=== PATIENT | male | born 1990 | race Caucasian/White ===

== ENCOUNTER 2019-06-13 12:31 | Emergency (ER) | payer SELFPAY ==
[2019-06-13 12:33] VITALS: BP 139/91; PULSE 90; RESP 20; TEMP 36.8; O2SAT 98; BMI 44.9
--- NOTE | 2019-06-13 12:41 | RAD_ITS ---
STUDY: X-RAY - LUMBAR SPINE REASON FOR EXAM: Male, 28 years old. Low back pain. No known injury. TECHNIQUE: 3 view(s) of the lumbar spine were obtained. COMPARISON: None FINDINGS: There is straightening of the normal lumbar lordosis. There is a mild dextroscoliosis of the lumbar spine. There is a normal alignment of the vertebrae. Normal vertebral bodies and endplates. Normal disc space heights. The soft tissue structures are unremarkable. RAD/Lumbar Spine 2 or 3 Views IMPRESSION: Mild degree of dextroscoliosis. Electronically Signed: Samuel Lemos, at 13:47 EDT , Service support ,
--- NOTE | 2019-06-13 12:41 | ED.DCSUM_ITS ---
History of Present Illness Chief Complaint: Back Informant: Patient Onset: Today Context: Sudden Onset Injury: - - Patient denies any injury Timing: Continuous Quality: - - Pain Current Severity: Mild Maximum Severity: Severe Worsened by: improves with: Movement, Bending, Lifting Relieved by: Nothing Associated Symptoms: - - He denies bowel or bladder dysfunction. He denies saddle paresthesia or anesthesia. He denies radicular pain. He states he had similar pain 2015 after a muscle strain. He states he took a muscle relaxant without effect. Narrative: Patient is a 28-year-old morbidly obese male who presents with central low back pain without bowel bladder symptoms. Denies radicular pain. He reports pain with any type of movement. He denies dysuria, frequency, urgency hematuria. Denies history of renal ureterolithiasis. Prior similar symptoms: Yes, With Prior Back Pain Recent Illness/Hospitalization: No Past Medical History - Allergies and Home Meds Allergies/Adverse Reactions: Allergies Sulfa (Sulfonamide Antibiotics) Allergy (Verified 06/13/19 12:36) Rash Primary Care Physician: Stephenie Yi [Primary Care Provider] - Prior records reviewed: No Surgical History: no surgical history Lives: With Family Smoking Status: Never smoker Alcohol: None Drugs: None Review of Systems General: Denies: Chills, Fever, Sweats Eyes: Denies: Visual changes - bilaterally, Blurred Vision - bilaterally ENT: Denies: Rhinorrhea, Sore throat Cardiovascular: Denies: Chest pain, Palpitations Respiratory: Denies: Dyspnea, Cough, Dyspnea on exertion Gastrointestinal: Denies: Abdominal pain, Nausea, Vomiting, Diarrhea, Melena, Hematochezia Genitourinary: Denies: Dysuria, Hematuria, Frequency Musculoskeletal: Reports: Back pain. Denies: Myalgias, Arthralgias, Neck pain, Swelling, Extremity Pain, -, - Skin: Denies: Rash, Wounds Neurological: Denies: Weakness, Parasthesia, Numbness Hematologic: Denies: Easy bruising, Easy bleeding Physical Exam Vital Signs/Narrative: Vital Signs Temp Pulse Resp BP Pulse Ox 06/13/19 12:33 98.2 F 90 20 H 139/91 H 98 Inital Vital Signs reviewed: Yes General: Well nourished, Well developed Head: Normocephalic, Atraumatic Eyes: Perrl, EOMI ENT: Moist mucous membranes, No rhinorrhea Neck: Supple, Nontender Cardiovascular: Regular rate, Regular rhythm, No murmurs Respiratory: No distress, CTA bilaterally, Chest nontender Abdomen: Soft, Nontender, Nondistended, Normal bowel sounds Back: Normal Inspection, Spinal tenderness - Pain over L5 spinous process, Negative SLR - Right, Negative SLR - Left. Negative for: Surgical Scar, Well- Healed, CVA tenderness Extremeties: Nontender, No edema, Strong Pulses Skin: Normal color, No rash, No Trauma. Negative for: Cyanosis, Diaphoresis, Jaundice Neuro: Alert, Oriented, Normal Strength, Normal Sensation, Normal DTR, Normal Gait, Normal Reflexes, - - There is no clonus or Babinski sign noted. Straight leg test negative bilaterally. Normal sensation. Reflexes: - - Toe and ankle reflexes are plus minus and symmetric. Psychological: Normal affect Diagnostic/Tx/Re-eval X-Ray: LS SPine, Read by ED Physician, Normal, No Fracture, Normal Bony Alignment, - - Three-view x-ray of the lumbar sacral spine was obtained and is normal. 06/13/19 12:41 Lumbar Spine 2 or 3 Views [RAD] Stat - Medical Decision Making No history of trauma suspect this is degenerative disc disease. LS-spine was obtained to confirm. He was medicated with parenteral medication. Symptoms are not consistent with ureterolithiasis. He has no red flags to suggest epidural abscess or herniated disc. She was reassessed at 1340. Reports improvement in pain. He was informed that his x-ray was unremarkable. ED Disposition - Plan for ED Patient: Disposition: Home or Assisted Living Diagnosis: Acute low back pain Instructions: BACK AND NECK PAIN, General Prescriptions: Naproxen [Naprosyn] 500 mg PO BID #14 tab Prescription Printed Referrals: [facility],Stephenie Connors [Primary Care Provider] - 3-5 Days if not improving
[2019-06-13] MEDS: Morphine 4 MG/ML Syringe IV (12:50)
[2019-06-13] MEDS: Ketorolac 15 MG/ML Vial IV (12:51)
[2019-06-13 14:10] VITALS: BP 119/67; PULSE 93; RESP 18; O2SAT 94
[2019-06-13] MEDS: morphine 8 MG/ML Syringe IV (15:06)
== END 2019-06-13 16:01 | disposition home or self-care (01) ==
PROVIDERS: Emergency Provider Emergency Medicine
DX: M54.5 Low back pain (principal); E66.01 Morbid (severe) obesity due to excess calories
CPT/HCPCS: 72100; 96374; 96375; 99285; A4216

== ENCOUNTER 2021-08-14 20:15 | Emergency (ER) | payer MEDICAID, SELFPAY ==
[2021-08-14 20:15] VITALS: BP 192/105; PULSE 101; RESP 16; TEMP 36.4; O2SAT 98; BMI 43.7
[2021-08-14 20:17] VITALS: BP 192/105; PULSE 101; RESP 16; TEMP 36.4; O2SAT 98
--- NOTE | 2021-08-14 20:29 | CT_ITS ---
STUDY: CT ABDOMEN AND PELVIS WITH CONTRAST REASON FOR EXAM: Male, 30 years old. abdominal pain RADIATION DOSAGE (If Supplied By Facility): CTDIvol = ( 18.24 ) mGy, DLP = ( 2029.69 ) mGycm TECHNIQUE: Transaxial images were obtained from the dome of the diaphragm to the symphysis pubis without oral contrast. Isovue 370 100ml was administered. Sagittal and coronal images were reconstructed. Individualized dose optimization techniques were used for this CT. COMPARISON: None. FINDINGS: The visualized lung bases are unremarkable. The visualized portions of the heart are within normal limits. Normal liver. Normal gallbladder and extrahepatic biliary system. Normal spleen. Normal pancreas. Normal bilateral adrenal glands. Normal right kidney. Normal left kidney. There is a small hiatal hernia. Normal small intestine. Normal colon. The appendix is visualized and appears normal. Normal abdominal aorta. Normal inferior vena cava. Normal retroperitoneum. Normal urinary bladder. There is absence of the uterus consistent with a prior hysterectomy. Normal abdominal wall. Normal osseous structures. CT/Abdomen/Pelvis W IV Cont ONLY IMPRESSION: No acute inflammatory process or bowel obstruction. Electronically Signed: Joe Mishra MD ([place]) at 21:20 EST , Service support ,
--- NOTE | 2021-08-14 20:29 | EX.ED.DYSGE1 ---
HPI History of Present Illness Chief Complaint: Abd Pain Informant: patient Narrative Narrative: 30-year-old male presents the emergency room with vomiting of diarrhea 3-day duration. States that he woke up this morning and had some swelling and discomfort in the left side of his abdomen started moved towards the right side also. His mom became concerned for gallbladder disease because it runs in the family. He denies any fevers. He notes that this morning while he was really nauseous he had a bit of a cough but otherwise no coughing sore throat or runny nose. No bad food exposure he is a diabetic. States he typically goes to [place] for most of his care but was staying here in town so came here today. Patient states that has been able to keep water or Gatorade down today but he kept a couple grilled cheese sandwiches and chicken noodle soup down. [facility] Medical History (Updated 08/14/21 @ 21:[address] Sonu Gunderson DO) Diabetes Hypertension Home Medications insulin glargine [Lantus Solostar U-100 Insulin] 70 unit SUBCUT QHS 08/14/21 [History Last Taken Unknown] insulin lispro 14 unit SUBCUT TIDCM 08/14/21 [History Last Taken Unknown] lisinopril 2.5 mg PO DAILY 08/14/21 [History Last Taken Unknown] ondansetron 4 mg PO Q6H PRN PRN #10 tab 08/14/21 [Rx Last Taken Unknown] Allergy/AdvReac Type Severity Reaction Status Date / Time Sulfa (Sulfonamide Allergy Rash Verified 08/14/21 20:18 Antibiotics) Social History (Updated 08/14/21 @ 20:[address] Sonu Gunderson DO) current gender identity: male Smoking Status: Never smoker ROS ROS ED Constitutional Constitutional ED: Denies chills or weight loss Eyes Eyes: Denies change in vision or diplopia ENT ENT ED: Denies ear pain, rhinorrhea or sore throat Cardiovascular Cardiovascular: Denies chest pain, orthopnea, palpitations or racing heartbeat Respiratory/Chest Respiratory/Chest: Denies cough, dyspnea or orthopnea Gastrointestinal Gastrointestinal: Reports abdominal pain, diarrhea, nausea and vomiting Genitourinary Genitourinary ED: Denies dysuria, hematuria or urinary frequency Musculoskeletal Musculoskeletal: Denies arthralgias or myalgias Integumentary Denies abscess or rash Neurologic Neurologic: Denies headache(s) or weakness Psychiatric Psychiatric: Denies anxiety, depression, suicidal ideation or suicidal thoughts Endocrine Endocrinology: Denies polydipsia, polyphagia or polyuria Allergic/Immunologic Allergic/Immunologic ED: Denies mouth swelling, tongue swelling or urticaria EXAM Physical Exam Const Vital Signs: 08/14/21 20:15 08/14/21 20:17 Temperature 97.6 F L 97.6 F L Temperature Source Temporal Temporal Pulse Rate 101 H 101 H Respiratory Rate 16 16 Blood Pressure 192/105 H 192/105 H Blood Pressure Mean 134 134 Pulse Ox 98 98 Oxygen Delivery Method Room Air Room Air Positive well nourished, well developed and obese General Appearance ED: well developed Nutritional Appearance: obese HEENT Reports normocephalic, head/scalp atraumatic, TM's clear and moist mucous membranes Negative for trauma Tympanic Membrane ED: Yes TM's clear Eyes PERRL and EOMs intact bilaterally Neck no lymphadenopathy, supple and no JVD Resp normal respiratory effort and clear to auscultation bilaterally Cardio regular rate, regular rhythm and no murmurs GI normal to inspection, nondistended, normoactive bowel sounds and non-tender Palpation: soft Back/Spine no CVA tenderness and normal ROM Extremity normal to inspection General Extremety ED: Negative for edema General Extremity: Negative for edema Neuro oriented x3 and CN's II-XII intact bilaterally Sensorium / Orientation: alert Motor Exam: strength 5/5 throughout Psych mental status grossly normal Mood & Affect: Negative for depressed or tearful Skin no rashes or lesions noted and no wounds MDM MDM MDM Narrative Medical decision making narrative: Basic blood work was essentially negative with a white count of 9.9. Glucose 245. Lipase 247. CO2 24. CT the of the pelvis was obtained which does not demonstrate anything acute. Patient received Zofran and some fluids. Patient will be discharged home with a prescription for Zofran return if worsening or concerns instructions for Imodium as needed Lab Data Attestation: I reviewed the patient's lab results. Labs: Laboratory Results - last 24 hr 08/14/21 08/14/21 20:32 20:32 WBC 9.9 RBC 5.52 Hgb 14.3 Hct 43.5 MCV 78.8 L MCH 25.9 L MCHC 32.9 RDW Std Deviation 42.4 RDW Coeff of Dano 15.0 H Plt Count 279 MPV 10.4 Immature Gran % (Auto) 0.600 Neut % (Auto) 58.1 Lymph % (Auto) 30.4 Glascock % (Auto) 5.4 Eos % (Auto) 5.1 H Baso % (Auto) 0.4 Absolute Neuts (auto) 5.8 Absolute Lymphs (auto) 3.01 Nucleated RBC % 0 Sodium 137 Potassium 3.9 Chloride 108 H Carbon Dioxide 24.0 Anion Gap 5 BUN 16 Creatinine 0.84 Estim Creat Clear Calc 150.86 Est GFR (MDRD) Af Amer 137 Est GFR (MDRD) Non-Af 114 BUN/Creatinine Ratio 19.0 Glucose 245 H Calcium 9.1 Total Bilirubin 0.60 AST 16 ALT 22 Alkaline Phosphatase 125 H Total Protein 7.2 Albumin 2.8 L Globulin 4.4 H Albumin/Globulin Ratio 0.6 L Lipase 247 Radiography Diagnostic Testing: Clinical Impression(s) from Imaging Studies Abdomen/Pelvis CT 08/14/21 20:29 IMPRESSION: No acute inflammatory process or bowel obstruction. Electronically Signed: Joe Mishra MD ([place]) at 21:20 EST , Service support , Discharge Plan Triage Chief Complaint: Abd Pain ED Provider: Sonu Gunderson Dx/Rx/DC Orders Clinical Impression: Gastroenteritis Instructions: ED Gastroenteritis, Viral (Adult) Prescriptions: New ondansetron [ondansetron] 4 MG tablet 4 mg PO Q6H PRN PRN (Reason: Nausea) Qty: 10 RF: 0 No Action lisinopril 2.5 mg tablet 2.5 mg PO DAILY RF: 0 insulin lispro 100 unit/mL insulin pen 14 unit SUBCUT TIDCM RF: 0 Lantus Solostar U-100 Insulin 100 unit/mL (3 mL) insulin pen 70 unit SUBCUT QHS RF: 0 Primary Care Provider: Care Physician,No Primary Referrals: Care Physician,No Primary [Primary Care Provider] - Activity Restrictions/Additional Instructions: Follow-up with your primary care doctor if not improving return if worsening or concerns Disposition Disposition: Home, Self Care
[2021-08-14] MEDS: Ondansetron 4 MG/2 ML Vial IV (20:38)
[2021-08-14] MEDS: 0.9% Normal Saline 1,000 ML 1000 ML IV (20:38)
[2021-08-14 20:40] LABS: Absolute Lymphocyte Count 3.01 X10^3/uL (0.83-4.51); Absolute Neutrophil Count 5.8 X10^3/uL (2.0-7.7); Basophil# 0.04 X10^3/uL; Basophil% 0.4 % (0-1); Eosinophils% 5.1 % (0-5); Hematocrit 43.5 % (40-54); Hemoglobin 14.3 g/dL (13.0-16.5); Lymphocyte # 3.01 X10^3/ul (0.83-4.51); Lymphocyte % 30.4 % (19-41); Mean Corp Hgb Conc 32.9 g/dL (32-36); Mean Corpuscular Hgb 25.9 pg (27.0-32.0); Mean Corpuscular Volume 78.8 fL (80-94); Mean Platelet Vol. 10.4 fl (6.2-12.0); Monocyte# 0.53 X10^3/uL; Monocyte% 5.4 % (0-10); NRBC Flagged by Analyzer 0 % (0-5); Neutrophil # 5.75 X10^3/uL (2.7-7.7); Neutrophil % 58.1 % (47-70); Platelet Count 279 K/mm3 (150-450); RBC Distribution Width SD 42.4 fl (35.1-43.9); Red Blood Count 5.52 M/mm3 (4.6-6.2); White Blood Count 9.9 K/mm3 (4.4-11.0)
[2021-08-14 20:56] LABS: ALB/GLOB Ratio 0.6 RATIO (0.9-2.4); AST(SGOT) 16 U/L (15-37); Alanine Aminotransfer ALT/SGPT 22 U/L (16-61); Albumin, Serum 2.8 g/dL (3.2-5.0); Alkaline Phosphatase 125 U/L (45-117); Anion Gap 5 (5-15); BUN 16 mg/dL (7-18); Calcium,Total 9.1 mg/dL (8.5-10.1); Chloride 108 mmol/L (98-107); Creatinine, Serum 0.84 mg/dL (0.70-1.30); EST Glomerular Filtration Rate 114 mL/min (>60); Est Glom Filt Rate - Afr Amer 137 mL/min (>60); Estimated Creatinine Clearance 150.86 ml/min; Globulin 4.4 g/dL (2.2-4.2); Glucose 245 mg/dL (74-106); Lipase 247 U/L (73-393); Potassium 3.9 mmol/L (3.5-5.1); Protein, Total 7.2 g/dL (6.4-8.2); Sodium Level 137 mmol/L (136-145)
[2021-08-14 21:44] VITALS: BP 107/71; PULSE 102; O2SAT 100
== END 2021-08-14 22:17 | disposition home or self-care (01) ==
PROVIDERS: Emergency Provider Emergency Medicine
DX: K52.9 Noninfective gastroenteritis and colitis, unspecified (principal); E66.9 Obesity, unspecified; E11.9 Type 2 diabetes mellitus without complications; I10 Essential (primary) hypertension; Z79.4 Long term (current) use of insulin
CPT/HCPCS: 74177; 80053; 83690; 85025; 96361; 96374; 99283; J7030; Q9967; A4216; J2405

== ENCOUNTER 2021-09-02 23:19 | Emergency (ER) | payer MEDICAID, SELFPAY ==
[2021-09-02 23:21] VITALS: BP 156/90; PULSE 100; RESP 18; TEMP 36.7; O2SAT 96; BMI 43.9
--- NOTE | 2021-09-02 23:50 | EDS_ITS ---
HPI History of Present Illness Chief Complaint: Abscess Informant: patient Onset/Context/Timing Onset: Days (2) Context: Gradual Onset Timing: Continuous Quality: sore Location: left jaw/face Current Severity: Moderate Maximum Severity: Severe Worsened by: palpation Relieved by: leaving alone Associated Symptoms Associated Symptoms: no systemic sx Narrative Narrative: Patient presenting for tender swollen area on his left lower face that he suspects is infected. He states he thinks it started as an ingrown hair, he pulled the hair out and there was something white on the end of it, it then started getting more swollen, red, painful. Today he states that he stabbed it with a needle and had a small amount of pus come out, and presents out of fear that it may need more of a drainage. [facility] Medical History Diabetes Hypertension Home Medications insulin glargine [Lantus Solostar U-100 Insulin] 70 unit SUBCUT QHS 08/14/21 [History Last Taken Unknown] insulin lispro 14 unit SUBCUT TIDCM 08/14/21 [History Last Taken Unknown] lisinopril 2.5 mg PO DAILY 08/14/21 [History Last Taken Unknown] ondansetron 4 mg PO Q6H PRN PRN #10 tab 08/14/21 [Rx Last Taken Unknown] clindamycin HCl 300 mg PO 4X/DAY #80 capsule 09/02/21 [Rx Last Taken Unknown] Allergy/AdvReac Type Severity Reaction Status Date / Time Sulfa (Sulfonamide Allergy Rash Verified 09/02/21 23:23 Antibiotics) Social History Smoking Status: Never smoker ROS ROS ED Constitutional Constitutional ED: Denies chills or fever(s) ENT ENT ED: Reports as per HPI and facial pain; Denies dental pain Musculoskeletal Musculoskeletal: Denies extremity pain or neck pain Integumentary Reports as per HPI and abscess; Denies Abrasions or rash Neurologic Neurologic: Denies paresthesias or weakness EXAM Physical Exam Const Vital Signs: 09/02/21 23:21 Temperature 98.1 F Temperature Source Temporal Pulse Rate 100 Respiratory Rate 18 Blood Pressure 156/90 H Blood Pressure Mean 112 Pulse Ox 96 Oxygen Delivery Method Room Air Positive well nourished and well developed General Appearance ED: well developed and NAD HEENT HEENT Narrative: Left lower jawline 3 cm facial abscess without spontaneous drainage. Tender. No intraoral involvement. Neck full ROM and supple Back/Spine normal ROM and normal to inspection Neuro oriented x3, no focal motor deficits and no sensory deficits noted Sensorium / Orientation: alert Psych mental status grossly normal and thought process normal Skin Skin Narrative: 3 cm indurated erythematous tender abscess left lower face/jaw. Large scab in the center of it. There is no expressible discharge spontaneously. Rashes: no rashes MDM MDM MDM Narrative Medical decision making narrative: Patient amenable to local anesthesia and I&D, drainage, antibiotics. He is allergic to sulfa, so we will start him on clindamycin. He states his blood sugars have been in the 200s, we discussed trying to keep his blood sugars under the best control possible to minimize infections like this, and we also discussed taking a probiotic or eating yogurt while on the clindamycin in order to minimize the risk of antibiotic associated diarrhea and C. difficile colitis. Procedures Other Procedures Procedure(s): Complex incision and drainage left facial abscess: Prepped with chlorhexidine. Locally anesthetized with 2 cc of a 50:50 mix of 2% lidocaine with epinephrine and 0.5% bupivacaine. Excellent anesthesia obtained. Incised centrally over the scab only with a #11 blade into cavity, small amount of purulent material expressed, deloculated with hemostats, painlessly. Small amount more purulent material expressed. Irrigated cavity with sterile saline 10 cc, packed with small amount of sterile gauze, dressed with bacitracin no complications tolerated well. Discharge Plan Triage Chief Complaint: Abscess ED Provider: Juan Angulo Dx/Rx/DC Orders Clinical Impression: Cutaneous abscess of face Instructions: ED Abscess Incision And Drainage Prescriptions: New clindamycin HCl 150 MG capsule 300 mg PO 4X/DAY Qty: 80 RF: 0 No Action lisinopril 2.5 mg tablet 2.5 mg PO DAILY RF: 0 insulin lispro 100 unit/mL insulin pen 14 unit SUBCUT TIDCM RF: 0 Lantus Solostar U-100 Insulin 100 unit/mL (3 mL) insulin pen 70 unit SUBCUT QHS RF: 0 ondansetron [ondansetron] 4 MG tablet 4 mg PO Q6H PRN PRN (Reason: Nausea) Qty: 10 RF: 0 Primary Care Provider: Care Physician,No Primary Referrals: Care Physician,No Primary [Primary Care Provider] - Doctor,Your [STAFF PHYSICIAN] - 3-5 Days if not improving Disposition Disposition: Home, Self Care
[2021-09-02] MEDS: Clindamycin HCl 150 MG Capsule 300 MG PO (23:58)
[2021-09-03 00:20] VITALS: RESP 18
== END 2021-09-03 00:21 | disposition home or self-care (01) ==
PROVIDERS: Emergency Provider Emergency Medicine; Visit Provider Emergency Medicine
DX: L02.811 Cutaneous abscess of head [any part, except face] (principal)
CPT/HCPCS: 10061; 99283

== ENCOUNTER → 2021-10-13 13:28 | Outpatient (CLI) | payer MEDICAID, SELFPAY ==
[2021-10-13 14:26] LABS: Absolute Lymphocyte Count 2.29 X10^3/uL (0.83-4.51); Absolute Neutrophil Count 5.7 X10^3/uL (2.0-7.7); Basophil# 0.03 X10^3/uL; Basophil% 0.3 % (0-1); Eosinophils% 4.5 % (0-5); Hematocrit 37.3 % (40-54); Lymphocyte # 2.29 X10^3/ul (0.83-4.51); Lymphocyte % 25.6 % (19-41); Mean Corp Hgb Conc 32.2 g/dL (32-36); Mean Corpuscular Hgb 25.6 pg (27.0-32.0); Mean Corpuscular Volume 79.5 fL (80-94); Mean Platelet Vol. 10.7 fl (6.2-12.0); Monocyte# 0.45 X10^3/uL; NRBC Flagged by Analyzer 0 % (0-5); Neutrophil # 5.72 X10^3/uL (2.7-7.7); Neutrophil % 63.9 % (47-70); Platelet Count 232 K/mm3 (150-450); RBC Distribution Width CV 14.8 % (11.6-14.6); RBC Distribution Width SD 41.9 fl (35.1-43.9); Red Blood Count 4.69 M/mm3 (4.6-6.2)
[2021-10-13 14:36] LABS: Erythrocyte Sedimentation Rate 35 mm/hr (0-20)
[2021-10-13 14:38] LABS: ALB/GLOB Ratio 0.9 RATIO (0.9-2.4); AST(SGOT) 8 U/L (15-37); Alanine Aminotransfer ALT/SGPT 17 U/L (16-61); Albumin, Serum 2.9 g/dL (3.2-5.0); Alkaline Phosphatase 113 U/L (45-117); Anion Gap 5 (5-15); BUN 12 mg/dL (7-18); BUN/Creat Ratio 15.8 RATIO (10-20); Calcium,Total 8.7 mg/dL (8.5-10.1); Chloride 104 mmol/L (98-107); Creatinine, Serum 0.76 mg/dL (0.70-1.30); EST Glomerular Filtration Rate 128 mL/min (>60); Est Glom Filt Rate - Afr Amer 155 mL/min (>60); Globulin 3.4 g/dL (2.2-4.2); Glucose 296 mg/dL (74-106); Potassium 4.1 mmol/L (3.5-5.1); Protein, Total 6.3 g/dL (6.4-8.2); Sodium Level 138 mmol/L (136-145)
== END ==
DX: M86.9 Osteomyelitis, unspecified (principal); E11.69 Type 2 diabetes mellitus with other specified complication
CPT/HCPCS: 80053; 85025; 85652; 86140

== ENCOUNTER 2021-10-15 23:27 | Emergency (ER) | payer MEDICAID, SELFPAY ==
[2021-10-15 23:28] VITALS: BP 151/97; PULSE 101; RESP 16; TEMP 35.7; O2SAT 97; BMI 45.2
--- NOTE | 2021-10-15 23:49 | EX.ED.UPPERE ---
HPI History of Present Illness Chief Complaint: Upper Extremity Injury Narrative Narrative: Patient has past medical history of foot infections. He is currently undergoing infusions of antibiotics. This is the third PICC line that he has had in the last few years. He states this PICC line was placed a week ago Monday. Tonight, after his infusion, he said his back between his legs, and then noticed when he pulled down his arm band that cover the ports, that the bandage had been puffed up and there was a large amount of blood that trickled out. He had felt some burning in his arm. He denies any fevers or chills. No other symptoms. [facility] Medical History Diabetes Hypertension Home Medications insulin glargine [Lantus Solostar U-100 Insulin] 70 unit SUBCUT QHS 08/14/21 [History Last Taken Unknown] insulin lispro 14 unit SUBCUT TIDCM 08/14/21 [History Last Taken Unknown] lisinopril 2.5 mg PO DAILY 08/14/21 [History Last Taken Unknown] ondansetron 4 mg PO Q6H PRN PRN #10 tab 08/14/21 [Rx Last Taken Unknown] clindamycin HCl 300 mg PO 4X/DAY #80 capsule 09/02/21 [Rx Last Taken Unknown] Allergy/AdvReac Type Severity Reaction Status Date / Time Sulfa (Sulfonamide Allergy Rash Verified 10/15/21 23:28 Antibiotics) Social History Smoking Status: Never smoker ROS ROS ED ROS Narrative Constitutional: No fever, no chills. HEENT: No sore throat. No neck pain. No loss of vision. No rhinorrhea. Cardiovascular: No chest pain. No palpitations. No pedal edema. Respiratory: No cough, no shortness of breath. Abdominal: No abdominal pain. No nausea. No vomiting. Genitourinary: No dysuria. No hematuria. Musculoskeletal: No myalgias. No arthralgias. Right upper arm burning where PICC line is-resolved. Noticed blood under bandage. Neurologic: No headaches. No dizziness. No lightheadedness. Skin: No rash. No change in color. Psychiatric: No depression. No anxiety. EXAM Physical Exam Narrative Exam Narrative: Afebrile. Vital signs noted. HEENT: Normocephalic. Atraumatic. PERRL, EOMI. Neck soft and supple. No point tenderness or step off. Cardiovascular: Regular rate and rhythm. No murmurs, rubs, or gallops appreciated. Respiratory: No tachypnea. Lungs clear to auscultation bilaterally. Gastrointestinal: Abdomen soft, nontender, with normoactive bowel sounds. No rebound or guarding. Neurological: Awake. Alert. Nonfocal, nonlateralizing. Skin: No rash. Normal color. No pallor. Musculoskeletal: No pedal edema. Full range of motion extremities right lower extremity and Velcro boot. Noted PICC line with small amount of blood under dressing right upper extremity, medial aspect. No active bleeding noted. Const Vital Signs: 10/15/21 23:28 Temperature 96.2 F L Temperature Source Temporal Pulse Rate 101 H Respiratory Rate 16 Blood Pressure 151/97 H Blood Pressure Mean 115 Pulse Ox 97 Oxygen Delivery Method Room Air MDM MDM MDM Narrative Medical decision making narrative: His dressing will be changed. There is no active bleeding. At this point in time, I feel he can be discharged safely home with follow-up. Return instructions to the emergency department were reviewed. Patient and his mother are comfortable with the plan. Disposition is discharged home in improved and stable condition. Discharge Plan Triage Chief Complaint: Upper Extremity Injury ED Provider: Hugo Garcia Dx/Rx/DC Orders Clinical Impression: Bleeding from PICC line, Dressing change Instructions: ED PICC Line Care Prescriptions: No Action lisinopril 2.5 mg tablet 2.5 mg PO DAILY RF: 0 insulin lispro 100 unit/mL insulin pen 14 unit SUBCUT TIDCM RF: 0 Lantus Solostar U-100 Insulin 100 unit/mL (3 mL) insulin pen 70 unit SUBCUT QHS RF: 0 ondansetron [ondansetron] 4 MG tablet 4 mg PO Q6H PRN PRN (Reason: Nausea) Qty: 10 RF: 0 clindamycin HCl 150 MG capsule 300 mg PO 4X/DAY Qty: 80 RF: 0 Primary Care Provider: Care Physician,No Primary Referrals: Care Physician,No Primary [Primary Care Provider] - Disposition Disposition: Home, Self Care
--- NOTE | 2021-10-16 00:18 | EX.ED.UPPERE ---
HPI History of Present Illness Chief Complaint: Upper Extremity Injury [facility] Medical History Diabetes Hypertension Home Medications insulin glargine [Lantus Solostar U-100 Insulin] 70 unit SUBCUT QHS 08/14/21 [History Last Taken Unknown] insulin lispro 14 unit SUBCUT TIDCM 08/14/21 [History Last Taken Unknown] lisinopril 2.5 mg PO DAILY 08/14/21 [History Last Taken Unknown] ondansetron 4 mg PO Q6H PRN PRN #10 tab 08/14/21 [Rx Last Taken Unknown] clindamycin HCl 300 mg PO 4X/DAY #80 capsule 09/02/21 [Rx Last Taken Unknown] Allergy/AdvReac Type Severity Reaction Status Date / Time Sulfa (Sulfonamide Allergy Rash Verified 10/15/21 23:28 Antibiotics) Social History Smoking Status: Never smoker EXAM Physical Exam Const Vital Signs: 10/15/21 23:28 Temperature 96.2 F L Temperature Source Temporal Pulse Rate 101 H Respiratory Rate 16 Blood Pressure 151/97 H Blood Pressure Mean 115 Pulse Ox 97 Oxygen Delivery Method Room Air Discharge Plan Triage Chief Complaint: Upper Extremity Injury ED Provider: Hugo Garcia Dx/Rx/DC Orders Clinical Impression: Bleeding from PICC line, Dressing change Instructions: ED PICC Line Care Prescriptions: No Action lisinopril 2.5 mg tablet 2.5 mg PO DAILY RF: 0 insulin lispro 100 unit/mL insulin pen 14 unit SUBCUT TIDCM RF: 0 Lantus Solostar U-100 Insulin 100 unit/mL (3 mL) insulin pen 70 unit SUBCUT QHS RF: 0 ondansetron [ondansetron] 4 MG tablet 4 mg PO Q6H PRN PRN (Reason: Nausea) Qty: 10 RF: 0 clindamycin HCl 150 MG capsule 300 mg PO 4X/DAY Qty: 80 RF: 0 Primary Care Provider: Care Physician,No Primary Referrals: Care Physician,No Primary [Primary Care Provider] - Disposition Disposition: Home, Self Care
== END 2021-10-16 00:32 | disposition home or self-care (01) ==
PROVIDERS: Emergency Provider Emergency Medicine; Visit Provider Emergency Medicine
DX: Z48.01 Encounter for change or removal of surgical wound dressing (principal); E11.9 Type 2 diabetes mellitus without complications; I10 Essential (primary) hypertension
CPT/HCPCS: 99282

== ENCOUNTER → 2021-10-19 16:39 | Outpatient (CLI) | payer MEDICAID, SELFPAY ==
[2021-10-19 16:50] LABS: Absolute Lymphocyte Count 1.58 X10^3/uL (0.83-4.51); Absolute Neutrophil Count 5.9 X10^3/uL (2.0-7.7); Basophil# 0.06 X10^3/uL; Basophil% 0.7 % (0-1); Eosinophils% 6.8 % (0-5); Hematocrit 35.5 % (40-54); Lymphocyte # 1.58 X10^3/ul (0.83-4.51); Mean Corp Hgb Conc 33.8 g/dL (32-36); Mean Corpuscular Hgb 26.3 pg (27.0-32.0); Mean Corpuscular Volume 77.7 fL (80-94); Mean Platelet Vol. 10.6 fl (6.2-12.0); Monocyte# 0.53 X10^3/uL; NRBC Flagged by Analyzer 0 % (0-5); Neutrophil # 5.94 X10^3/uL (2.7-7.7); Neutrophil % 67.7 % (47-70); Platelet Count 256 K/mm3 (150-450); RBC Distribution Width CV 15.3 % (11.6-14.6); RBC Distribution Width SD 42.2 fl (35.1-43.9); Red Blood Count 4.57 M/mm3 (4.6-6.2); White Blood Count 8.8 K/mm3 (4.4-11.0)
[2021-10-19 16:58] LABS: Erythrocyte Sedimentation Rate 41 mm/hr (0-20)
[2021-10-19 16:59] LABS: ALB/GLOB Ratio 0.8 RATIO (0.9-2.4); AST(SGOT) 8 U/L (15-37); Alanine Aminotransfer ALT/SGPT 16 U/L (16-61); Albumin, Serum 2.8 g/dL (3.2-5.0); Alkaline Phosphatase 115 U/L (45-117); Anion Gap 6 (5-15); BUN 9 mg/dL (7-18); BUN/Creat Ratio 11.5 RATIO (10-20); Calcium,Total 8.4 mg/dL (8.5-10.1); Chloride 104 mmol/L (98-107); Creatinine, Serum 0.78 mg/dL (0.70-1.30); EST Glomerular Filtration Rate 124 mL/min (>60); Est Glom Filt Rate - Afr Amer 150 mL/min (>60); Globulin 3.3 g/dL (2.2-4.2); Glucose 308 mg/dL (74-106); Potassium 3.8 mmol/L (3.5-5.1); Protein, Total 6.1 g/dL (6.4-8.2); Sodium Level 137 mmol/L (136-145)
== END ==
DX: M86.9 Osteomyelitis, unspecified (principal); Z47.81 Encounter for orthopedic aftercare following surgical amputation
CPT/HCPCS: 80053; 85025; 85652; 86140

== ENCOUNTER → 2021-11-22 14:26 | Outpatient (CLI) | payer MEDICAID, SELFPAY ==
[2021-11-22 14:49] LABS: Absolute Lymphocyte Count 2.67 X10^3/uL (0.83-4.51); Absolute Neutrophil Count 3.8 X10^3/uL (2.0-7.7); Basophil# 0.06 X10^3/uL; Basophil% 0.8 % (0-1); Eosinophil# 0.87 X10^3/uL; Hematocrit 37.4 % (40-54); Hemoglobin 12.1 g/dL (13.0-16.5); Lymphocyte # 2.67 X10^3/ul (0.83-4.51); Lymphocyte % 33.7 % (19-41); Mean Corp Hgb Conc 32.4 g/dL (32-36); Mean Corpuscular Hgb 25.5 pg (27.0-32.0); Mean Corpuscular Volume 78.9 fL (80-94); Mean Platelet Vol. 10.6 fl (6.2-12.0); Monocyte# 0.43 X10^3/uL; Monocyte% 5.4 % (0-10); NRBC Flagged by Analyzer 0 % (0-5); Neutrophil # 3.83 X10^3/uL (2.7-7.7); Neutrophil % 48.2 % (47-70); Platelet Count 229 K/mm3 (150-450); RBC Distribution Width CV 14.9 % (11.6-14.6); RBC Distribution Width SD 42.7 fl (35.1-43.9); Red Blood Count 4.74 M/mm3 (4.6-6.2); White Blood Count 7.9 K/mm3 (4.4-11.0)
[2021-11-22 15:03] LABS: ALB/GLOB Ratio 0.9 RATIO (0.9-2.4); AST(SGOT) 9 U/L (15-37); Alanine Aminotransfer ALT/SGPT 22 U/L (16-61); Albumin, Serum 2.9 g/dL (3.2-5.0); Alkaline Phosphatase 143 U/L (45-117); Anion Gap 6 (5-15); BUN 14 mg/dL (7-18); BUN/Creat Ratio 20.3 RATIO (10-20); CPK Total, Creatine Kinase 19 U/L (39-308); Calcium,Total 8.8 mg/dL (8.5-10.1); Chloride 102 mmol/L (98-107); Creatinine, Serum 0.69 mg/dL (0.70-1.30); EST Glomerular Filtration Rate 143 mL/min (>60); Est Glom Filt Rate - Afr Amer 173 mL/min (>60); Globulin 3.4 g/dL (2.2-4.2); Glucose 211 mg/dL (74-106); Potassium 4.2 mmol/L (3.5-5.1); Protein, Total 6.3 g/dL (6.4-8.2); Sodium Level 138 mmol/L (136-145)
[2021-11-23 13:09] LABS: Erythrocyte Sedimentation Rate 27 mm/hr (0-20)
== END ==
DX: M86.9 Osteomyelitis, unspecified (principal); B95.62 Methicillin resistant Staphylococcus aureus infection as the cause of diseases classified elsewhere
CPT/HCPCS: 80053; 82550; 85025; 85652; 86140

== ENCOUNTER → 2021-12-06 15:19 | Outpatient (CLI) | payer MEDICAID, SELFPAY ==
[2021-12-06 15:41] LABS: Absolute Lymphocyte Count 2.02 X10^3/uL (0.83-4.51); Absolute Neutrophil Count 7.5 X10^3/uL (2.0-7.7); Basophil# 0.06 X10^3/uL; Basophil% 0.5 % (0-1); Eosinophil# 0.92 X10^3/uL; Eosinophils% 8.3 % (0-5); Hematocrit 38.7 % (40-54); Hemoglobin 12.6 g/dL (13.0-16.5); Lymphocyte # 2.02 X10^3/ul (0.83-4.51); Lymphocyte % 18.1 % (19-41); Mean Corp Hgb Conc 32.6 g/dL (32-36); Mean Corpuscular Hgb 25.2 pg (27.0-32.0); Mean Corpuscular Volume 77.4 fL (80-94); Mean Platelet Vol. 10.6 fl (6.2-12.0); Monocyte# 0.59 X10^3/uL; Monocyte% 5.3 % (0-10); NRBC Flagged by Analyzer 0 % (0-5); Neutrophil # 7.46 X10^3/uL (2.7-7.7); Neutrophil % 66.9 % (47-70); Platelet Count 303 K/mm3 (150-450); RBC Distribution Width CV 15.2 % (11.6-14.6); RBC Distribution Width SD 42.3 fl (35.1-43.9); White Blood Count 11.2 K/mm3 (4.4-11.0)
[2021-12-06 16:00] LABS: ALB/GLOB Ratio 0.9 RATIO (0.9-2.4); AST(SGOT) 11 U/L (15-37); Alanine Aminotransfer ALT/SGPT 29 U/L (16-61); Albumin, Serum 3.1 g/dL (3.2-5.0); Alkaline Phosphatase 156 U/L (45-117); Anion Gap 4 (5-15); BUN 16 mg/dL (7-18); BUN/Creat Ratio 21.1 RATIO (10-20); CPK Total, Creatine Kinase 38 U/L (39-308); Calcium,Total 9.2 mg/dL (8.5-10.1); Chloride 106 mmol/L (98-107); Creatinine, Serum 0.76 mg/dL (0.70-1.30); EST Glomerular Filtration Rate 128 mL/min (>60); Est Glom Filt Rate - Afr Amer 155 mL/min (>60); Globulin 3.4 g/dL (2.2-4.2); Glucose 162 mg/dL (74-106); Potassium 4.3 mmol/L (3.5-5.1); Protein, Total 6.5 g/dL (6.4-8.2); Sodium Level 138 mmol/L (136-145)
== END ==
DX: E11.69 Type 2 diabetes mellitus with other specified complication (principal); B95.2 Enterococcus as the cause of diseases classified elsewhere; B95.62 Methicillin resistant Staphylococcus aureus infection as the cause of diseases classified elsewhere
CPT/HCPCS: 80053; 82550; 85025; 86140

== ENCOUNTER → 2022-01-03 | Outpatient (CLI) | payer MEDICAID, SELFPAY ==
[2022-01-03 15:31] LABS: Absolute Lymphocyte Count 2.32 X10^3/uL (0.83-4.51); Absolute Neutrophil Count 5.3 X10^3/uL (2.0-7.7); Basophil# 0.04 X10^3/uL; Basophil% 0.5 % (0-1); Eosinophil# 0.58 X10^3/uL; Eosinophils% 6.6 % (0-5); Hematocrit 37.7 % (40-54); Hemoglobin 11.9 g/dL (13.0-16.5); Lymphocyte # 2.32 X10^3/ul (0.83-4.51); Lymphocyte % 26.3 % (19-41); Mean Corp Hgb Conc 31.6 g/dL (32-36); Mean Corpuscular Hgb 24.9 pg (27.0-32.0); Monocyte# 0.52 X10^3/uL; Monocyte% 5.9 % (0-10); NRBC Flagged by Analyzer 0 % (0-5); Neutrophil # 5.32 X10^3/uL (2.7-7.7); Neutrophil % 60.4 % (47-70); Platelet Count 264 K/mm3 (150-450); RBC Distribution Width CV 15.5 % (11.6-14.6); RBC Distribution Width SD 44.4 fl (35.1-43.9); Red Blood Count 4.77 M/mm3 (4.6-6.2); White Blood Count 8.8 K/mm3 (4.4-11.0)
[2022-01-03 16:20] LABS: ALB/GLOB Ratio 0.9 RATIO (0.9-2.4); AST(SGOT) 17 U/L (15-37); Alanine Aminotransfer ALT/SGPT 33 U/L (16-61); Albumin, Serum 3.1 g/dL (3.2-5.0); Alkaline Phosphatase 124 U/L (45-117); Anion Gap 6 (5-15); BUN 21 mg/dL (7-18); BUN/Creat Ratio 28.6 RATIO (10-20); CPK Total, Creatine Kinase 41 U/L (39-308); Calcium,Total 8.9 mg/dL (8.5-10.1); Chloride 105 mmol/L (98-107); Creatinine, Serum 0.74 mg/dL (0.70-1.30); EST Glomerular Filtration Rate 133 mL/min (>60); Est Glom Filt Rate - Afr Amer 161 mL/min (>60); Globulin 3.3 g/dL (2.2-4.2); Glucose 153 mg/dL (74-106); Potassium 4.3 mmol/L (3.5-5.1); Protein, Total 6.4 g/dL (6.4-8.2); Sodium Level 139 mmol/L (136-145)
== END | disposition home or self-care (01) ==
LOC: LABSPEC 15:08
DX: Z47.81 Encounter for orthopedic aftercare following surgical amputation (principal); M86.9 Osteomyelitis, unspecified
CPT/HCPCS: 80053; 82550; 85025; 86140

== ENCOUNTER → 2022-01-10 | Outpatient (CLI) | payer MEDICAID, SELFPAY ==
[2022-01-10 12:12] LABS: Absolute Lymphocyte Count 2.64 X10^3/uL (0.83-4.51); Absolute Neutrophil Count 4.8 X10^3/uL (2.0-7.7); Basophil# 0.03 X10^3/uL; Basophil% 0.3 % (0-1); Eosinophil# 0.81 X10^3/uL; Eosinophils% 9.1 % (0-5); Hematocrit 36.3 % (40-54); Hemoglobin 11.5 g/dL (13.0-16.5); Lymphocyte # 2.64 X10^3/ul (0.83-4.51); Lymphocyte % 29.7 % (19-41); Mean Corp Hgb Conc 31.7 g/dL (32-36); Mean Corpuscular Hgb 24.8 pg (27.0-32.0); Mean Corpuscular Volume 78.4 fL (80-94); Mean Platelet Vol. 10.5 fl (6.2-12.0); Monocyte# 0.57 X10^3/uL; Monocyte% 6.4 % (0-10); NRBC Flagged by Analyzer 0 % (0-5); Neutrophil # 4.78 X10^3/uL (2.7-7.7); Neutrophil % 53.9 % (47-70); Platelet Count 262 K/mm3 (150-450); RBC Distribution Width CV 15.5 % (11.6-14.6); Red Blood Count 4.63 M/mm3 (4.6-6.2); White Blood Count 8.9 K/mm3 (4.4-11.0)
[2022-01-10 12:31] LABS: ALB/GLOB Ratio 0.9 RATIO (0.9-2.4); AST(SGOT) 11 U/L (15-37); Alanine Aminotransfer ALT/SGPT 25 U/L (16-61); Albumin, Serum 2.9 g/dL (3.2-5.0); Alkaline Phosphatase 127 U/L (45-117); Anion Gap 7 (5-15); BUN 19 mg/dL (7-18); BUN/Creat Ratio 29.4 RATIO (10-20); CPK Total, Creatine Kinase 29 U/L (39-308); Calcium,Total 8.7 mg/dL (8.5-10.1); Chloride 104 mmol/L (98-107); Creatinine, Serum 0.65 mg/dL (0.70-1.30); EST Glomerular Filtration Rate 154 mL/min (>60); Est Glom Filt Rate - Afr Amer 186 mL/min (>60); Globulin 3.3 g/dL (2.2-4.2); Glucose 168 mg/dL (74-106); Protein, Total 6.2 g/dL (6.4-8.2); Sodium Level 138 mmol/L (136-145)
== END | disposition home or self-care (01) ==
LOC: LABSPEC 11:57
DX: Z47.81 Encounter for orthopedic aftercare following surgical amputation (principal)
CPT/HCPCS: 80053; 82550; 85025; 86140

== ENCOUNTER → 2022-01-17 | Outpatient (CLI) | payer MEDICAID, SELFPAY ==
[2022-01-17 14:52] LABS: Absolute Lymphocyte Count 2.72 X10^3/uL (0.83-4.51); Basophil# 0.05 X10^3/uL; Basophil% 0.4 % (0-1); Eosinophil# 0.75 X10^3/uL; Eosinophils% 6.6 % (0-5); Hematocrit 39.3 % (40-54); Hemoglobin 12.4 g/dL (13.0-16.5); Lymphocyte # 2.72 X10^3/ul (0.83-4.51); Lymphocyte % 24.1 % (19-41); Mean Corp Hgb Conc 31.6 g/dL (32-36); Mean Corpuscular Hgb 24.8 pg (27.0-32.0); Mean Corpuscular Volume 78.8 fL (80-94); Mean Platelet Vol. 10.8 fl (6.2-12.0); Monocyte# 0.69 X10^3/uL; Monocyte% 6.1 % (0-10); NRBC Flagged by Analyzer 0 % (0-5); Neutrophil # 6.99 X10^3/uL (2.7-7.7); Neutrophil % 62.1 % (47-70); Platelet Count 266 K/mm3 (150-450); RBC Distribution Width CV 15.5 % (11.6-14.6); RBC Distribution Width SD 43.9 fl (35.1-43.9); Red Blood Count 4.99 M/mm3 (4.6-6.2); White Blood Count 11.3 K/mm3 (4.4-11.0)
[2022-01-17 14:59] LABS: AST(SGOT) 9 U/L (15-37); Alanine Aminotransfer ALT/SGPT 19 U/L (16-61); Albumin, Serum 3.1 g/dL (3.2-5.0); Alkaline Phosphatase 120 U/L (45-117); Anion Gap 6 (5-15); BUN 18 mg/dL (7-18); BUN/Creat Ratio 23.6 RATIO (10-20); CPK Total, Creatine Kinase 31 U/L (39-308); Calcium,Total 8.5 mg/dL (8.5-10.1); Chloride 103 mmol/L (98-107); Creatinine, Serum 0.76 mg/dL (0.70-1.30); EST Glomerular Filtration Rate 127 mL/min (>60); Est Glom Filt Rate - Afr Amer 154 mL/min (>60); Globulin 3.2 g/dL (2.2-4.2); Glucose 219 mg/dL (74-106); Protein, Total 6.3 g/dL (6.4-8.2); Sodium Level 136 mmol/L (136-145)
== END | disposition home or self-care (01) ==
LOC: LABSPEC 14:28
DX: T87.43 Infection of amputation stump, right lower extremity (principal)
CPT/HCPCS: 80053; 82550; 85025; 86140

== ENCOUNTER → 2022-01-25 | Outpatient (CLI) | payer MEDICAID, SELFPAY ==
[2022-01-25 15:09] LABS: Absolute Lymphocyte Count 2.41 X10^3/uL (0.83-4.51); Absolute Neutrophil Count 4.8 X10^3/uL (2.0-7.7); Basophil# 0.05 X10^3/uL; Basophil% 0.6 % (0-1); Eosinophil# 0.74 X10^3/uL; Eosinophils% 8.6 % (0-5); Hematocrit 38.7 % (40-54); Hemoglobin 12.5 g/dL (13.0-16.5); Lymphocyte # 2.41 X10^3/ul (0.83-4.51); Lymphocyte % 28.1 % (19-41); Mean Corp Hgb Conc 32.3 g/dL (32-36); Mean Corpuscular Volume 77.2 fL (80-94); Mean Platelet Vol. 11.2 fl (6.2-12.0); Monocyte# 0.51 X10^3/uL; Monocyte% 5.9 % (0-10); NRBC Flagged by Analyzer 0 % (0-5); Neutrophil # 4.82 X10^3/uL (2.7-7.7); Neutrophil % 56.2 % (47-70); Platelet Count 229 K/mm3 (150-450); RBC Distribution Width CV 15.3 % (11.6-14.6); RBC Distribution Width SD 41.9 fl (35.1-43.9); Red Blood Count 5.01 M/mm3 (4.6-6.2); White Blood Count 8.6 K/mm3 (4.4-11.0)
[2022-01-25 23:09] LABS: ALB/GLOB Ratio 0.9 RATIO (0.9-2.4); AST(SGOT) 12 U/L (15-37); Alanine Aminotransfer ALT/SGPT 19 U/L (16-61); Albumin, Serum 3.1 g/dL (3.2-5.0); Alkaline Phosphatase 125 U/L (45-117); Anion Gap 8 (5-15); BUN 13 mg/dL (7-18); BUN/Creat Ratio 17.4 RATIO (10-20); CPK Total, Creatine Kinase 35 U/L (39-308); Calcium,Total 8.7 mg/dL (8.5-10.1); Chloride 103 mmol/L (98-107); Creatinine, Serum 0.75 mg/dL (0.70-1.30); EST Glomerular Filtration Rate 130 mL/min (>60); Est Glom Filt Rate - Afr Amer 157 mL/min (>60); Globulin 3.4 g/dL (2.2-4.2); Glucose 271 mg/dL (74-106); Potassium 3.9 mmol/L (3.5-5.1); Protein, Total 6.5 g/dL (6.4-8.2); Sodium Level 137 mmol/L (136-145)
== END | disposition home or self-care (01) ==
LOC: LABSPEC 14:36
DX: T87.43 Infection of amputation stump, right lower extremity (principal)
CPT/HCPCS: 80053; 82550; 85025; 86140

== ENCOUNTER → 2022-02-04 | Outpatient (CLI) | payer MEDICAID, SELFPAY ==
[2022-02-04 17:33] LABS: Hematocrit 38.2 % (40-54); Hemoglobin 12.2 g/dL (13.0-16.5); Mean Corp Hgb Conc 31.9 g/dL (32-36); Mean Corpuscular Volume 78.3 fL (80-94); Mean Platelet Vol. 10.4 fl (6.2-12.0); Platelet Count 251 K/mm3 (150-450); RBC Distribution Width CV 15.8 % (11.6-14.6); RBC Distribution Width SD 43.7 fl (35.1-43.9); Red Blood Count 4.88 M/mm3 (4.6-6.2); White Blood Count 9.3 K/mm3 (4.4-11.0)
[2022-02-04 18:18] LABS: Anion Gap 4 (5-15); BUN 11 mg/dL (7-18); BUN/Creat Ratio 12.2 RATIO (10-20); Calcium,Total 8.8 mg/dL (8.5-10.1); Chloride 108 mmol/L (98-107); EST Glomerular Filtration Rate 105 mL/min (>60); Est Glom Filt Rate - Afr Amer 127 mL/min (>60); Glucose 142 mg/dL (74-106); Potassium 3.6 mmol/L (3.5-5.1); Sodium Level 140 mmol/L (136-145)
== END | disposition home or self-care (01) ==
DX: E61.1 Iron deficiency (principal); D50.9 Iron deficiency anemia, unspecified
CPT/HCPCS: 80048; 85027

== ENCOUNTER 2022-09-15 09:04 | Emergency (ER) | payer MEDICAID, SELFPAY ==
[2022-09-15 09:05] VITALS: BP 167/115; PULSE 128; RESP 18; TEMP 36.6; O2SAT 97; BMI 47.5
--- NOTE | 2022-09-15 09:17 | EX.ED.DYSGE1 ---
HPI History of Present Illness Chief Complaint: Abscess Detail of Chief Complaint: Concern for abscess to scalp Informant: patient and parent Narrative Narrative: Patient presents the emergency department with concern of an abscess to his scalp. Patient states that he woke up Monday morning and had some bloody drainage on his hand and pillow. Patient has had these wounds to his scalp since 2019. Patient was seen at [facility] and was cultured and was told that he had a fungal infection for which she uses a shampoo. Patient denies fever or chills or sweats. Patient is a diabetic. No history of MRSA. Patient does have allergy to sulfa. Prior similar symptoms: Yes PFSH PFSH Medical History Diabetes Hypertension Home Medications insulin glargine 100 unit/mL (3 mL) subcutaneous pen (Lantus Solostar U-100 Insulin) 70 unit subcut QHS 08/14/21 [History Last Taken Unknown] insulin lispro 100 unit/mL subcutaneous pen 14 unit subcut TIDCM 08/14/21 [History Last Taken Unknown] lisinopril 2.5 mg tablet 2.5 mg PO DAILY 08/14/21 [History Last Taken Unknown] ondansetron 4 mg disintegrating tablet 4 mg PO Q6H PRN PRN Nausea #10 tabs 08/14/21 [Rx Last Taken Unknown] clindamycin HCl 150 mg capsule 300 mg PO 4X/DAY #80 CAPSULES 09/02/21 [Rx Last Taken Unknown] clindamycin HCl 300 mg capsule (Cleocin HCl) 300 mg PO Q6H #40 CAPSULES 09/15/22 [Rx Last Taken Unknown] Allergy/AdvReac Type Severity Reaction Status Date / Time Sulfa (Sulfonamide Allergy Rash Verified 09/15/22 09:08 Antibiotics) metformin AdvReac Vomiting Verified 09/15/22 09:08 Social History Smoking Status: Never smoker ROS ROS ED Review of Systems ROS Unobtainable: other Constitutional Constitutional ED: Reports lethargy; Denies chills, fever(s), sweats or weight loss Eyes Eyes: Denies blurry vision, change in vision or diplopia ENT ENT ED: Denies rhinorrhea or sore throat Cardiovascular Cardiovascular: Denies chest pain, orthopnea or racing heartbeat Respiratory/Chest Respiratory/Chest: Denies cough, dyspnea, dyspnea on exertion, orthopnea or sputum Gastrointestinal Gastrointestinal: Denies abdominal pain, diarrhea, nausea or vomiting Genitourinary Genitourinary ED: Denies dysuria, hematuria or urinary frequency Musculoskeletal Musculoskeletal: Denies arthralgias, back pain, myalgias or neck pain Integumentary Reports abscess; Denies Abrasions or rash Neurologic Neurologic: Denies headache(s) or weakness Psychiatric Psychiatric: Denies anxiety, depression or suicidal thoughts Endocrine Endocrinology: Denies polydipsia, polyphagia or polyuria Hematologic/Lymphatic Hematologic/Lymphatic: Denies easy bleeding, easy bruising or lymphadenopathy Allergic/Immunologic Allergic/Immunologic ED: Denies mouth swelling, tongue swelling or urticaria EXAM Physical Exam Const Vital Signs: 09/15/22 09:05 Temperature 97.9 F Temperature Source Temporal Pulse Rate 128 H Respiratory Rate 18 Blood Pressure 167/115 H Blood Pressure Mean 132 Pulse Ox 97 Oxygen Delivery Method Room Air Positive well nourished and well developed General Appearance ED: well developed and NAD HEENT Reports TM's clear and moist mucous membranes HEENT Narrative: Scalp-patient has multiple small excoriated lesions to the scalp in different stages of healing. To the posterior occiput there was a excoriated area that may have had an abscess there where it spontaneously drained but there is no evidence of abscess at this time or fluctuance or purulent drainage. Some of the lesions have some small amount of erythema surrounding them. There is scab formation around some of the lesions. normocephalic and atraumatic; Negative for trauma or tenderness Tympanic Membrane ED: Yes TM's clear Eyes PERRL and EOMs intact bilaterally General Eye ED: Negative for pale conjunctiva or scleral icterus Neck no lymphadenopathy, supple and no JVD General: Negative for tenderness Chest Wall inspection of chest normal and palpation of chest normal Chest: Negative for tenderness Resp normal respiratory effort and clear to auscultation bilaterally Effort and Inspection: Negative for respiratory distress or pain with movement Auscultation: Negative for rhonchi, wheezes or diminished lung sounds Cardio regular rate, regular rhythm, S1 normal heart sound, S2 normal heart sound and no murmurs Peripheral Pulses: pulses 2+ throughout GI normal to inspection, nondistended, normoactive bowel sounds, soft to palpation, non-tender, non-distended and no masses Back/Spine no CVA tenderness and no thoracic nor lumbar tenderness Extremity normal to inspection General Extremety ED: Negative for edema General Extremity: Negative for edema Neuro oriented x3, CN's II-XII intact bilaterally, no sensory deficits noted and gait normal Sensorium / Orientation: awake, alert, oriented to person, oriented to place and oriented to time Motor Exam: strength 5/5 throughout and strength abnormal Psych mental status grossly normal Skin no wounds Skin Narrative: Multiple excoriated lesions to scalp. No discrete abscess or purulent drainage noted. No cellulitic changes to the scalp. MDM MDM MDM Narrative Medical decision making narrative: Patient has multiple lesions to the scalp I suspect could be infectious. I will start him on clindamycin. Patient to continue with his antifungal shampoo. Patient will be referred to dermatology for follow-up. There is no evidence of discrete abscess at this time or requirement for incision and drainage. Patient comfortable with plan and will follow-up with dermatology. Discharge Plan Triage Chief Complaint: Abscess ED Provider: Frida Wilson Dx/Rx/DC Orders Clinical Impression: Cellulitis, Soft tissue abscess Instructions: Abscess Drainage, ED Cellulitis Prescriptions: New clindamycin HCl [Cleocin HCl] 300 mg capsule 300 mg PO Q6H Qty: 40 0RF No Action lisinopril 2.5 mg tablet 2.5 mg PO DAILY insulin lispro 100 unit/mL insulin pen 14 unit SUBCUT TIDCM Lantus Solostar U-100 Insulin 100 unit/mL (3 mL) insulin pen 70 unit SUBCUT QHS ondansetron [ondansetron] 4 MG tablet 4 mg PO Q6H PRN PRN (Reason: Nausea) Qty: 10 0RF clindamycin HCl 150 MG capsule 300 mg PO 4X/DAY Qty: 80 0RF Primary Care Provider: Care Physician,No Primary Referrals: Mario Miles MD [Med Staff - [employer]] - 5-7 Days Care Physician,No Primary [Primary Care Provider] - Disposition Disposition: Home, Self Care
[2022-09-15] MEDS: Clindamycin HCl 150 MG Capsule 300 MG PO (09:29)
[2022-09-15 09:31] VITALS: PULSE 96; RESP 18; O2SAT 95
== END 2022-09-15 09:48 | disposition home or self-care (01) ==
LOC: ED 09:28
PROVIDERS: Emergency Provider Emergency Medicine; Visit Provider Emergency Medicine
DX: L03.811 Cellulitis of head [any part, except face] (principal); E11.9 Type 2 diabetes mellitus without complications; I10 Essential (primary) hypertension
CPT/HCPCS: 99283

== ENCOUNTER 2022-12-13 09:27 | Emergency (ER) | payer MEDICAID, SELFPAY ==
[2022-12-13 09:28] VITALS: BP 168/88; PULSE 95; RESP 24; TEMP 36.7; O2SAT 98; BMI 50.8
--- NOTE | 2022-12-13 09:37 | NURSING ---
NO OLD EKGS
--- NOTE | 2022-12-13 09:42 | EKG12_ITS ---
Test Reason : CP Blood Pressure : / mmHG Vent. Rate : 096 BPM Atrial Rate : 096 BPM P-R Int : 152 ms QRS Dur : 088 ms QT Int : 370 ms P-R-T Axes : 064 035 -11 degrees QTc Int : 467 ms Normal sinus rhythm Cannot rule out Inferior infarct , age undetermined Abnormal ECG Confirmed by CHANDA WILSON, SENIA ([id number]), health editor МАРИНА TERRAZAS ([id number]) on 12/16/2022 2:25:32 PM Referred By: BRUCE Confirmed By:SENIA ARMAS MD
--- NOTE | 2022-12-13 09:42 | ED.VIS.CHEST ---
HPI History of Present Illness Chief Complaint: Chest Pain Narrative Narrative: 32-year-old male past medical history of asthma, diabetes, hypertension, family history of early coronary artery disease presents with left-sided chest pain that is worse with movement since 730 this morning. He states he awoke and was laying on his left side, and began having left-sided chest pain. He felt short of breath and sweaty but denies any fevers or chills. No cough. No nausea or vomiting. He presents with his mother because they are concerned because she had a heart attack and there is a strong family history of coronary artery disease. He states that the pain will last at least 15 minutes and then go away, but come right back. Pain is worse when he moves his arm or torso. PFSH [facility] Medical History Diabetes Hypertension Home Medications insulin glargine 100 unit/mL (3 mL) subcutaneous pen (Lantus Solostar U-100 Insulin) 70 unit subcut QHS 08/14/21 [History Last Taken Unknown] insulin lispro 100 unit/mL subcutaneous pen 14 unit subcut TIDCM 08/14/21 [History Last Taken Unknown] lisinopril 2.5 mg tablet 2.5 mg PO DAILY 08/14/21 [History Last Taken Unknown] ondansetron 4 mg disintegrating tablet 4 mg PO Q6H PRN PRN Nausea #10 tabs 08/14/21 [Rx Last Taken Unknown] clindamycin HCl 150 mg capsule 300 mg PO 4X/DAY #80 CAPSULES 09/02/21 [Rx Last Taken Unknown] clindamycin HCl 300 mg capsule (Cleocin HCl) 300 mg PO Q6H #40 CAPSULES 09/15/22 [Rx Last Taken Unknown] Allergy/AdvReac Type Severity Reaction Status Date / Time Sulfa (Sulfonamide Allergy Rash Verified 12/13/22 09:28 Antibiotics) metformin AdvReac Vomiting Verified 12/13/22 09:28 Social History Smoking Status: Never smoker ROS ROS ED ROS Narrative Constitutional: No fever, no chills. [place] sweaty this morning. HEENT: No sore throat. No neck pain. No loss of vision. No rhinorrhea. Cardiovascular: Left total chest pain. No palpitations. No pedal edema. Respiratory: No cough, positive shortness of breath. Abdominal: No abdominal pain. No nausea. No vomiting. Genitourinary: No dysuria. No hematuria. Musculoskeletal: No myalgias. No arthralgias. Neurologic: No headaches. No dizziness. No lightheadedness. Skin: No rash. No change in color. Psychiatric: No depression. No anxiety. EXAM Physical Exam Narrative Exam Narrative: Afebrile. Vital signs noted. HEENT: Normocephalic. Atraumatic. PERRL, EOMI. Neck soft and supple. No point tenderness or step off. Cardiovascular: Regular rate and rhythm. No murmurs, rubs, or gallops appreciated. Left pectoral pain, reproducible, no crepitance. Positive pain with movement of the left arm, and torso. Respiratory: No tachypnea. Lungs clear to auscultation bilaterally. Gastrointestinal: Abdomen soft, obese. Nontender, with normoactive bowel sounds. No rebound or guarding. Neurological: Awake. Alert. Nonfocal, nonlateralizing. Skin: No rash. Normal color. No pallor. Musculoskeletal: No pedal edema. Full range of motion extremities. Const Vital Signs: 12/13/22 09:28 12/13/22 09:30 12/13/22 09:48 Temperature 98.1 F Temperature Source Oral Pulse Rate 95 Respiratory Rate 24 H Respiratory Effort Normal Non-Labored Blood Pressure 168/88 H Blood Pressure Mean 114 Pulse Ox 98 95 Oxygen Delivery Method Room Air Room Air 12/13/22 11:15 Temperature Temperature Source Pulse Rate 74 Respiratory Rate 18 Respiratory Effort Blood Pressure 131/83 H Blood Pressure Mean 99 Pulse Ox 94 Oxygen Delivery Method Room Air Heart Score History: Slightly/Non-Suspicious ECG: Normal Age: </= 45 years Risk Factors: >/= 3 Risk Factors or History of CAD Score: 2 MDM MDM MDM Narrative Medical decision making narrative: Given that his pain is reproducible, and is manifested by movement of his left arm and torso, I do feel that he probably has more chest wall pain. However, he and his mother concerned regarding the strong family history of coronary artery disease. He does have risk factors including elevated BMI, hypertension, and diabetes. Comprehensive work-up was pursued to rule out cardiac ischemia, EKG will be obtained along with serial troponins. EKG was obtained and interpreted by myself as normal sinus rhythm at 96 bpm without ectopy or acute ST changes. No STEMI. I reviewed the patient's laboratory work, he has a normal white count of 7.4, hemoglobin stable at 12.8, platelet count normal at 240. Sodium is slightly low at 134 which I think is nonspecific, normal potassium of 3.5, normal BUN of 8 and normal creatinine of 0.9. Initial high-sensitivity troponin is 3. Repeat 2-hour troponin is 5. I do feel that this helps rule out cardiac ischemia. I reviewed and interpreted his chest x-ray which shows no acute process. I reviewed the radiology report which states there is borderline cardiomegaly but otherwise lungs are clear. I do not feel that CTA of the chest is indicated. He has normal oxygen saturation and is not tachycardic. Once again, his chest wall pain is reproducible. He was administered Toradol 15 mg intravenously and upon repeat examination states he feels improved. I feel he can be discharged safely home to follow-up with his primary care physician. He will take [id number] analgesics. I do not feel that he requires observation. Return instructions to the emergency department were reviewed. Disposition is discharged home in stable condition. History & Record Review Discussion w/independent historian: Patient and Family Additional record(s) reviewed:: Prior outpatient record and Prior ED visit Lab Data Attestation: I reviewed the patient's lab results. Labs: Laboratory Results - last 24 hr 12/13/22 12/13/22 12/13/22 09:40 09:40 10:00 WBC 7.4 RBC 5.14 Hgb 12.8 L Hct 40.2 MCV 78.2 L MCH 24.9 L MCHC 31.8 L RDW Std Deviation 41.8 RDW Coeff of [place] 15.1 H Plt Count 240 MPV 10.2 Immature Gran % (Auto) 1.600 H Neut % (Auto) 63.4 Lymph % (Auto) 23.4 [place] % (Auto) 5.1 Eos % (Auto) 5.8 H Baso % (Auto) 0.7 Absolute Neuts (auto) 4.7 Absolute Lymphs (auto) 1.73 Nucleated RBC % 0 Sodium 134 L Potassium 3.5 Chloride 105 Carbon Dioxide 24.0 Anion Gap 5 BUN 8 Creatinine 0.90 Estim Creat Clear Calc 138.27 Est GFR (MDRD) Af Amer 127 Est GFR (MDRD) Non-Af 105 BUN/Creatinine Ratio 8.9 L Glucose 374 H Calcium 8.7 Total Bilirubin 0.70 AST 19 ALT 31 Alkaline Phosphatase 130 H Troponin I High Sens 3 5 Total Protein 6.6 Albumin 2.8 L Globulin 3.8 Albumin/Globulin Ratio 0.7 L Radiography Diagnostic Testing: Clinical Impression(s) from Imaging Studies Chest X-Ray 12/13/22 09:50 IMPRESSION: Borderline cardiomegaly. The lungs are clear. Electronically Signed: Samuel Lemos MD at 10:05 EDT , Discharge Plan Triage Chief Complaint: Chest Pain ED Provider: Hugo Garcia Dx/Rx/DC Orders Clinical Impression: Chest pain, Strain of chest wall Instructions: ED Chest Pain, Noncardiac, ED Chest Wall Strain Prescriptions: No Action lisinopril 2.5 mg tablet 2.5 mg PO DAILY insulin lispro 100 unit/mL insulin pen 14 unit SUBCUT TIDCM Lantus Solostar U-100 Insulin 100 unit/mL (3 mL) insulin pen 70 unit SUBCUT QHS ondansetron [ondansetron] 4 MG tablet 4 mg PO Q6H PRN PRN (Reason: Nausea) Qty: 10 0RF clindamycin HCl 150 MG capsule 300 mg PO 4X/DAY Qty: 80 0RF clindamycin HCl [Cleocin HCl] 300 mg capsule 300 mg PO Q6H Qty: 40 0RF Primary Care Provider: Timmy SANDERS Referrals: [facility] Doctor,Out of [Non-Staff] - 3-5 Days if not improving Disposition Disposition: Home, Self Care
[2022-12-13 09:48] VITALS: O2SAT 95
[2022-12-13] MEDS: Aspirin 81 MG TAB.CHEW 324 MG PO (09:49)
--- NOTE | 2022-12-13 09:50 | RAD_ITS ---
STUDY: X-RAY CHEST REASON FOR EXAM: Male, 32 years old. Chest pain TECHNIQUE: Single AP portable view of the chest. COMPARISON: None. FINDINGS: EKG electrodes are seen. The lungs are clear and expanded. Scattered calcified granulomas. There is no demonstrated pleural abnormality. There is borderline cardiomegaly. Normal mediastinum and jocelyn. Normal visualized pulmonary arteries. Normal visualized aortic arch and descending thoracic aorta. Normal visualized thoracic spine. Normal visualized ribs, clavicles, and shoulders. There is no demonstrated abnormality of the visualized soft tissue structures of the upper abdomen. RAD/Chest 1 View (Portable) IMPRESSION: Borderline cardiomegaly. The lungs are clear. Electronically Signed: Samuel Lemos MD at 10:05 EDT ,
[2022-12-13 10:01] LABS: Absolute Lymphocyte Count 1.73 X10^3/uL (0.83-4.51); Absolute Neutrophil Count 4.7 X10^3/uL (2.0-7.7); Basophil# 0.05 X10^3/uL; Basophil% 0.7 % (0-1); Eosinophil# 0.43 X10^3/uL; Eosinophils% 5.8 % (0-5); Hematocrit 40.2 % (40-54); Hemoglobin 12.8 g/dL (13.0-16.5); Lymphocyte # 1.73 X10^3/ul (0.83-4.51); Lymphocyte % 23.4 % (19-41); Mean Corp Hgb Conc 31.8 g/dL (32-36); Mean Corpuscular Hgb 24.9 pg (27.0-32.0); Mean Corpuscular Volume 78.2 fL (80-94); Mean Platelet Vol. 10.2 fl (6.2-12.0); Monocyte# 0.38 X10^3/uL; Monocyte% 5.1 % (0-10); NRBC Flagged by Analyzer 0 % (0-5); Neutrophil # 4.68 X10^3/uL (2.7-7.7); Neutrophil % 63.4 % (47-70); Platelet Count 240 K/mm3 (150-450); RBC Distribution Width CV 15.1 % (11.6-14.6); RBC Distribution Width SD 41.8 fl (35.1-43.9); Red Blood Count 5.14 M/mm3 (4.6-6.2); White Blood Count 7.4 K/mm3 (4.4-11.0)
[2022-12-13 10:10] LABS: ALB/GLOB Ratio 0.7 RATIO (0.9-2.4); AST(SGOT) 19 U/L (15-37); Alanine Aminotransfer ALT/SGPT 31 U/L (16-61); Albumin, Serum 2.8 g/dL (3.2-5.0); Alkaline Phosphatase 130 U/L (45-117); Anion Gap 5 (5-15); BUN 8 mg/dL (7-18); BUN/Creat Ratio 8.9 RATIO (10-20); Calcium,Total 8.7 mg/dL (8.5-10.1); Chloride 105 mmol/L (98-107); EST Glomerular Filtration Rate 105 mL/min (>60); Est Glom Filt Rate - Afr Amer 127 mL/min (>60); Estimated Creatinine Clearance 138.27 ml/min; Globulin 3.8 g/dL (2.2-4.2); Glucose 374 mg/dL (74-106); Potassium 3.5 mmol/L (3.5-5.1); Protein, Total 6.6 g/dL (6.4-8.2); Sodium Level 134 mmol/L (136-145); Troponin-I HS (w/2H Reflex) 3 pg/mL (3.0-78.0)
[2022-12-13 11:15] VITALS: BP 131/83; PULSE 74; RESP 18; O2SAT 94
[2022-12-13] MEDS: Ketorolac 15 MG/ML Vial IV (11:15)
[2022-12-13 11:50] LABS: Reflex Troponin-HS? (from REC) Y
[2022-12-13 12:33] LABS: Troponin-I HS 5 pg/mL (3.0-78.0)
== END 2022-12-13 13:08 | disposition home or self-care (01) ==
PROVIDERS: Emergency Provider Emergency Medicine; Visit Provider Emergency Medicine
DX: S29.011A Strain of muscle and tendon of front wall of thorax, initial encounter (principal); E11.9 Type 2 diabetes mellitus without complications; Z79.4 Long term (current) use of insulin; I10 Essential (primary) hypertension; J45.909 Unspecified asthma, uncomplicated; Z82.49 Family history of ischemic heart disease and other diseases of the circulatory system; R07.9 Chest pain, unspecified
CPT/HCPCS: 71045; 80053; 84484; 85025; 93005; 96374; 99285; A4216

== ENCOUNTER 2023-02-09 10:50 | Emergency (ER) | payer MEDICAID, SELFPAY ==
[2023-02-09 10:51] VITALS: BP 163/96; PULSE 110; RESP 18; TEMP 36.2; O2SAT 96
[2023-02-09 11:04] VITALS: BMI 48.1
--- NOTE | 2023-02-09 11:12 | US_ITS ---
STUDY: ABDOMINAL ULTRASOUND - RIGHT UPPER QUADRANT REASON FOR VISIT: Male, 32 years old RUQ PAIN TECHNIQUE: Ultrasound evaluation of the right upper quadrant was performed with real-time and static justice-scale imaging. TECHNICAL QUALITY: Adequate. COMPARISON: None. FINDINGS: Liver: The liver is enlarged and measures 22 cm. There is increased echogenicity consistent with fatty infiltration. Focal fatty sparing is seen adjacent to the gallbladder fossa. The bile ducts are within normal limits. There is hepatic color flow. The direction of portal flow is hepatopetal. There is no demonstrated mass lesion. Gallbladder: Normal distended gallbladder. The gallbladder wall measures 1.9 mm. There is a negative sonographic Godoy''s sign. There is no pericholecystic fluid. There are no gallstones. Common Bile Duct (C.B.D.): The common bile duct measures 3.7 mm. Pancreas: There is nonvisualization of the pancreas. Right Kidney: Normal size of the right kidney. The right kidney measures 16.3 cm x 5.9 cm x 5 cm. Normal renal cortex. The right cortex measures 1.4 cm. There is no demonstrated renal mass or cyst. There is no right hydronephrosis. US/Abdomen Limited IMPRESSION: Hepatomegaly and diffuse fatty infiltration of the liver with focal fatty sparing in the gallbladder fossa. Electronically Signed: Samuel Lemos MD at 13:15 EDT ,
--- NOTE | 2023-02-09 11:12 | ED.VIS.GI ---
HPI HPI - GI History of Present Illness Chief Complaint: Abd Pain Informant: patient and parent (Mother) Abdominal Pain/Flank Pain Timing: Intermittent Quality: Aching Location: Epigastric and RUQ Current Severity: Severe Maximum Severity: Severe Worsened by: Food Relieved by: Nothing Nausea/Vomiting/Emesis GI Symptom: Positive for Nausea and Vomiting Diarrhea/Melena/Hematochezia GI Symptom: Positive for Diarrhea; Negative for Melena or Hematochezia Narrative Narrative: 32-year-old male diabetic has had diarrhea for about a week and a half, no blood or melena, but around the same period of time he has been having upper abdominal pain radiating into both shoulders and his right upper back about an hour or so after most meals. The pain does go away. Last night he had a couple of brought worst. He started having the pain again an hour afterwards, and he has not had anything since, presenting the next morning with persistent pain and nausea/vomiting. He states he is concerned that this is his gallbladder. No history of any abdominal surgeries. [facility] Medical History Diabetes Hypertension Home Medications insulin lispro 100 unit/mL subcutaneous pen 15 unit subcut TIDCM 08/14/21 [History Last Taken Unknown] lisinopril 2.5 mg tablet 10 mg PO DAILY 08/14/21 [History Last Taken Unknown] dicyclomine 10 mg capsule 20 mg PO Q6H PRN abdominal pain #30 CAPSULES 02/09/23 [Rx Last Taken Unknown] gabapentin 100 mg tablet 100 mg PO QHS 02/09/23 [History Last Taken Unknown] insulin glargine 100 unit/mL (3 mL) subcutaneous pen (Lantus Solostar U-100 Insulin) 35 unit subcut BID 02/09/23 [History Last Taken Unknown] ondansetron 4 mg disintegrating tablet 8 mg PO Q8H PRN PRN Nausea #20 tabs 02/09/23 [Rx Last Taken Unknown] pantoprazole 40 mg tablet,delayed release 40 mg PO DAILY #30 tabs 02/09/23 [Rx Last Taken Unknown] sucralfate 1 gram tablet (Carafate) 1 g PO TID 7 days #21 tabs 02/09/23 [Rx Last Taken Unknown] Allergy/AdvReac Type Severity Reaction Status Date / Time Sulfa (Sulfonamide Allergy Rash Verified 02/09/23 10:54 Antibiotics) metformin AdvReac Vomiting Verified 02/09/23 10:54 Social History Smoking Status: Never smoker ROS ROS ED Constitutional Constitutional ED: Reports chills, fever(s) and subjective Eyes Eyes: Denies change in vision or diplopia ENT ENT ED: Denies rhinorrhea or sore throat Cardiovascular Cardiovascular: Reports chest pain; Denies palpitations Respiratory/Chest Respiratory/Chest: Denies cough or dyspnea Gastrointestinal Gastrointestinal: Reports abdominal pain, diarrhea, nausea and vomiting; Denies hematemesis, hematochezia or melena Genitourinary Genitourinary ED: Denies dysuria or hematuria Musculoskeletal Musculoskeletal: Reports back pain; Denies neck pain Integumentary Denies abscess or rash Neurologic Neurologic: Denies headache(s), paresthesias or weakness Psychiatric Psychiatric: Denies anxiety or suicidal thoughts EXAM Physical Exam Const Vital Signs: 02/09/23 10:51 Temperature 97.1 F L Temperature Source Temporal Pulse Rate 110 H Respiratory Rate 18 Blood Pressure 163/96 H Blood Pressure Mean 118 Pulse Ox 96 Oxygen Delivery Method Room Air Positive well nourished, well developed and obese General Appearance ED: well developed and NAD Nutritional Appearance: obese HEENT Reports moist mucous membranes normocephalic and atraumatic Eyes PERRL and EOMs intact bilaterally Neck full ROM and supple Resp normal respiratory effort and clear to auscultation bilaterally Cardio regular rate, regular rhythm and no murmurs GI non-distended GI Narrative: Tender across upper abdomen worst in the right upper quadrant, Godoy's equivocal. No guarding or rebound. No lower abdominal tenderness. Exam limited by morbid obesity. Auscultation: normoactive bowel sounds Palpation: soft Back/Spine no CVA tenderness General Back: other FROM Extremity normal to inspection General Extremety ED: Negative for edema, pulses abnormal or tenderness General Extremity: Negative for edema or pulses abnormal Neuro oriented x3, CN's II-XII intact bilaterally and no sensory deficits noted Sensorium / Orientation: awake and alert Motor Exam: strength 5/5 throughout Skin no rashes or lesions noted and no wounds MDM MDM MDM Narrative Medical decision making narrative: Symptoms were treated here while we did a work-up for the gallbladder which certainly is in the differential diagnosis, ultrasound was obtained and basically was unremarkable except for some fatty infiltration of the liver. I reviewed the images and the report and I agree with it. Sonographic Godoy's negative. No stones. Although a calculus cholecystitis is possible, I think it is very unlikely in context here given the normal findings on ultrasound. I think treating him for upper GI issues is reasonable for now. He is feeling better after treatment. Troponin negative. They are comfortable with this plan of following up. He is scheduled for probable gastric bypass by the beginning of this next year so he has multiple specialist follow-up appointments. Lab Data Attestation: I reviewed the patient's lab results. Labs: Laboratory Results - last 24 hr 02/09/23 02/09/23 02/09/23 11:23 11:23 11:25 WBC 10.1 RBC 5.94 Hgb 14.8 Hct 46.5 MCV 78.3 L MCH 24.9 L MCHC 31.8 L RDW Std Deviation 43.5 RDW Coeff of Dano 16.1 H Plt Count 251 MPV 9.7 Immature Gran % (Auto) 1.500 H Neut % (Auto) 57.8 Lymph % (Auto) 21.7 Marinette % (Auto) 4.8 Eos % (Auto) 13.3 H Baso % (Auto) 0.9 Absolute Neuts (auto) 5.8 Absolute Lymphs (auto) 2.19 Nucleated RBC % 0 Sodium 133 L Potassium 3.8 Chloride 104 Carbon Dioxide 23.0 Anion Gap 6 BUN 11 Creatinine 0.82 Estim Creat Clear Calc 151.76 Est GFR (MDRD) Af Amer 141 Est GFR (MDRD) Non-Af 117 BUN/Creatinine Ratio 13.5 Glucose 354 H Calcium 9.1 Total Bilirubin 0.70 AST 17 ALT 34 Alkaline Phosphatase 141 H Total Protein 7.7 Albumin 3.1 L Globulin 4.6 H Albumin/Globulin Ratio 0.7 L Lipase 48 Urine Color Yellow Urine Clarity Sl. Cloudy Urine pH 5.0 Ur Specific Ruston 1.025 Urine Protein 30 H Urine Glucose (UA) 1000 H Urine Ketones 5 H Urine Occult Blood 25 H Urine Nitrite Negative Urine Bilirubin 1 H Urine Urobilinogen Normal Ur Leukocyte Esterase 100 H Urine RBC 0-5 SEEN Urine WBC 10-25 SEEN Ur Squamous Epith Cells 0-5 SEEN Urine Bacteria 1+ Urine Mucus 0 SEEN Radiography Diagnostic Testing: Clinical Impression(s) from Imaging Studies Abdomen Ultrasound 02/09/23 11:12 IMPRESSION: Hepatomegaly and diffuse fatty infiltration of the liver with focal fatty sparing in the gallbladder fossa. Electronically Signed: Samuel Lemos MD at 13:15 EDT , Rhythm Strip Rhythm Strip: Sinus Tach Rate: 105 Ectopy: None Discharge Plan Triage Chief Complaint: Abd Pain ED Provider: Juan Angulo Dx/Rx/DC Orders Clinical Impression: Acute upper abdominal pain, Chest pain, unspecified Instructions: Abdominal Pain Prescriptions: New pantoprazole 40 mg tablet,delayed release (DR/EC) 40 mg PO DAILY Qty: 30 0RF sucralfate [Carafate] 1 gram tablet 1 g PO TID 7 Days Qty: 21 0RF ondansetron [ondansetron] 4 mg tablet,disintegrating 8 mg PO Q8H PRN PRN (Reason: Nausea) Qty: 20 0RF dicyclomine 10 mg capsule 20 mg PO Q6H PRN (Reason: abdominal pain) Qty: 30 0RF No Action lisinopril 2.5 mg tablet 10 mg PO DAILY insulin lispro 100 unit/mL insulin pen 15 unit SUBCUT TIDCM gabapentin 100 mg Tablet 100 mg PO QHS insulin glargine [Lantus Solostar U-100 Insulin] 100 unit/mL (3 mL) insulin pen 35 unit SUBCUT BID Primary Care Provider: ROZ SANDERS Referrals: ROZ SANDERS [Other] - 1-2 Weeks Disposition Disposition: Home, Self Care
[2023-02-09 11:26] LABS: Absolute Lymphocyte Count 2.19 X10^3/uL (0.83-4.51); Absolute Neutrophil Count 5.8 X10^3/uL (2.0-7.7); Basophil# 0.09 X10^3/uL; Basophil% 0.9 % (0-1); Eosinophil# 1.34 X10^3/uL; Eosinophils% 13.3 % (0-5); Hematocrit 46.5 % (40-54); Hemoglobin 14.8 g/dL (13.0-16.5); Lymphocyte # 2.19 X10^3/ul (0.83-4.51); Lymphocyte % 21.7 % (19-41); Mean Corp Hgb Conc 31.8 g/dL (32-36); Mean Corpuscular Hgb 24.9 pg (27.0-32.0); Mean Corpuscular Volume 78.3 fL (80-94); Mean Platelet Vol. 9.7 fl (6.2-12.0); Monocyte# 0.48 X10^3/uL; Monocyte% 4.8 % (0-10); NRBC Flagged by Analyzer 0 % (0-5); Neutrophil # 5.83 X10^3/uL (2.7-7.7); Neutrophil % 57.8 % (47-70); Platelet Count 251 K/mm3 (150-450); RBC Distribution Width CV 16.1 % (11.6-14.6); RBC Distribution Width SD 43.5 fl (35.1-43.9); Red Blood Count 5.94 M/mm3 (4.6-6.2); White Blood Count 10.1 K/mm3 (4.4-11.0)
[2023-02-09] MEDS: 0.9% Normal Saline 1,000 ML 125 ML IV (11:28)
[2023-02-09] MEDS: Ondansetron 4 MG/2 ML Vial IV (11:28)
[2023-02-09] MEDS: Ketorolac 30 MG/ML Syringe IV (11:28)
[2023-02-09 11:32] LABS: Mucous, Urine 0 SEEN /hpf (<or=2+)
[2023-02-09 11:41] LABS: Color, Urine Yellow (Yellow); Glucose, Dipstick 1000 mg/dl (Normal); Ketone-Dipstick 5 mg/dl (Negative); Leukocyte Esterase-Dipstick 100 /ul (Negative); Nitrite-Dipstick Negative (Negative); Occult Blood-Urine 25 /ul (Negative); Protein-Dipstick 30 mg/dl (Negative); Specific Gravity, Urine 1.025 (1.002-1.030); Urine Clarity Sl. Cloudy (Clear); Urine Urobilinogen Normal (Normal)
[2023-02-09 11:50] LABS: Urine Bilirubin Dipstick 1 mg/dL (Negative)
[2023-02-09 11:50] LABS: ALB/GLOB Ratio 0.7 RATIO (0.9-2.4); AST(SGOT) 17 U/L (15-37); Alanine Aminotransfer ALT/SGPT 34 U/L (16-61); Albumin, Serum 3.1 g/dL (3.2-5.0); Alkaline Phosphatase 141 U/L (45-117); Anion Gap 6 (5-15); BUN 11 mg/dL (7-18); BUN/Creat Ratio 13.5 RATIO (10-20); Calcium,Total 9.1 mg/dL (8.5-10.1); Chloride 104 mmol/L (98-107); Creatinine, Serum 0.82 mg/dL (0.70-1.30); EST Glomerular Filtration Rate 117 mL/min (>60); Est Glom Filt Rate - Afr Amer 141 mL/min (>60); Estimated Creatinine Clearance 151.76 ml/min; Globulin 4.6 g/dL (2.2-4.2); Glucose 354 mg/dL (74-106); Lipase 48 U/L (13-75); Potassium 3.8 mmol/L (3.5-5.1); Protein, Total 7.7 g/dL (6.4-8.2); Sodium Level 133 mmol/L (136-145)
[2023-02-09 11:51] LABS: Bacteria 1+ /hpf (None Seen); Red Blood Cells-Urine 0-5 SEEN /hpf (0-5); Squamous Epithelial Cells - UA 0-5 SEEN /hpf (0-5); White Blood Cells 10-25 SEEN /hpf (0-5)
[2023-02-09 14:05] VITALS: BP 147/81; PULSE 79; RESP 18; TEMP 36.7; O2SAT 94
== END 2023-02-09 14:13 | disposition home or self-care (01) ==
PROVIDERS: Emergency Provider Emergency Medicine; Visit Provider Emergency Medicine
DX: R10.31 Right lower quadrant pain (principal); E11.9 Type 2 diabetes mellitus without complications; Z79.4 Long term (current) use of insulin; R07.9 Chest pain, unspecified; I10 Essential (primary) hypertension; Z79.899 Other long term (current) drug therapy
CPT/HCPCS: 76705; 80053; 81001; 83690; 85025; 99283; J7030; A4216; J2405

== ENCOUNTER 2023-02-18 15:09 | Emergency (ER) | payer MEDICAID, SELFPAY ==
[2023-02-18 15:10] VITALS: BP 152/94; PULSE 106; RESP 18; TEMP 37.1; O2SAT 95; BMI 47.5
--- NOTE | 2023-02-18 15:26 | EX.ED.DYSGE1 ---
HPI <ESTRADA Fontenot - Last Filed: 02/18/23 16:21> History of Present Illness Chief Complaint: Abscess Narrative Narrative: 32-year-old male with PMH of DM2 presents with an abscess on his head. He states he picks and scratches his skin on his scalp and frequently gets scabs. He has been told he has a fungal infection on his scalp. An area on the right side of his scalp got swollen and red 2 weeks ago. He was seen at [facility] on 02/14 and prescribed Keflex and told if it got worse to come back and have it drained. He started the Keflex on 02/15 four times a day. Today he scratched his head and it burst open and started bleeding. He denies fever or chills. He takes insulin for his diabetes and states with this illness his sugars have been running high between 300-400. PFSH <ESTRADA Fontenot - Last Filed: 02/18/23 16:21> [facility] Medical History Diabetes Hypertension Home Medications insulin lispro 100 unit/mL subcutaneous pen 15 unit subcut TIDCM 08/14/21 [History Last Taken Unknown] lisinopril 2.5 mg tablet 10 mg PO DAILY 08/14/21 [History Last Taken Unknown] dicyclomine 10 mg capsule 20 mg PO Q6H PRN abdominal pain #30 CAPSULES 02/09/23 [Rx Last Taken Unknown] gabapentin 100 mg tablet 100 mg PO QHS 02/09/23 [History Last Taken Unknown] insulin glargine 100 unit/mL (3 mL) subcutaneous pen (Lantus Solostar U-100 Insulin) 35 unit subcut BID 02/09/23 [History Last Taken Unknown] ondansetron 4 mg disintegrating tablet 8 mg PO Q8H PRN PRN Nausea #20 tabs 02/09/23 [Rx Last Taken Unknown] pantoprazole 40 mg tablet,delayed release 40 mg PO DAILY #30 tabs 02/09/23 [Rx Last Taken Unknown] sucralfate 1 gram tablet (Carafate) 1 g PO TID 7 days #21 tabs 02/09/23 [Rx Last Taken Unknown] Allergy/AdvReac Type Severity Reaction Status Date / Time Sulfa (Sulfonamide Allergy Rash Verified 02/18/23 15:12 Antibiotics) metformin AdvReac Vomiting Verified 02/18/23 15:12 Social History Smoking Status: Never smoker ROS <ESTRADA Fontenot - Last Filed: 02/18/23 16:21> ROS ED ROS Narrative Constitutional: Negative for fever, chills, malaise. GI: Negative for nausea, vomiting. Skin: Positive for abscess. EXAM <ESTRADA Fontenot - Last Filed: 02/18/23 16:21> Physical Exam Narrative Exam Narrative: CONST: Patient sitting in no acute distress. EYES: Normal inspection. NECK: Normal inspection. RESP: No respiratory distress, CTAB. CVS: Regular rate and rhythm, no murmur, no gallop. SKIN: Patient has multiple scabs scattered across his scalp. On right parietal scalp there is a 10 x 5 cm erythematous boggy area. There is an overlying black eschar with bloody drainage from the frontal portion with palpation. EXTREMITIES: Normal appearance, no pedal edema. NEURO: Oriented x4. PSYCH: Normal affect. Const Vital Signs: 02/18/23 15:10 Temperature 98.7 F Temperature Source Temporal Pulse Rate 106 H Respiratory Rate 18 Blood Pressure 152/94 H Blood Pressure Mean 113 Pulse Ox 95 <Dr. Shelly Ordonez MD - Last Filed: 02/18/23 16:33> Physical Exam Const Vital Signs: 02/18/23 15:10 Temperature 98.7 F Temperature Source Temporal Pulse Rate 106 H Respiratory Rate 18 Blood Pressure 152/94 H Blood Pressure Mean 113 Pulse Ox 95 MDM <ESTRADA Fontenot - Last Filed: 02/18/23 16:21> MDM MDM Narrative Medical decision making narrative: Patient has chronic scabs and fungal infection on his scalp. He has a large red boggy area on the right parietal scalp is not improving on Keflex. He appears well and nontoxic. Heart rate is 106 with otherwise normal vital signs. Denies fevers. Although does not feel classic for an abscess its more boggy he states there was purulent drainage earlier so I will attempt an I&D. Area was anesthetized with 1% lidocaine and I used an 11 blade scalpel to make 2 incisions on either side of the dark eschar. There was only bloody drainage, no purulence. I recommended keeping the area clean and finishing Keflex. He is taken 3 days so far out of 14. He was instructed to see his PCP early next week to be rechecked and was discharged in stable condition. Differential: Scalp cellulitis, abscess <Dr. Shelly Ordonez MD - Last Filed: 02/18/23 16:33> [facility] Treatment and Re-Evaluation :: Patient seen and evaluated with LEI. I personally interviewed and examined the patient. I was involved in all aspects of patient's orders, interpretation of results, and treatment. Patient presents with abscess to his scalp. He has multiple scabbed lesions over his scalp from where he has been picking his skin. He is on a antifungal shampoo. He was seen at [facility] recently and started on Keflex for cutaneous abscess. He states shortly before arrival he stabbed one of the lesions with a needle and got pus out of it followed by blood. He is concerned it may need further I&D. Patient sitting upright no acute distress. Nontoxic-appearing. Head and neck examination reveals multiple scabbed lesions on the scalp. He has serosanguineous drainage out of one of the lesions. The area is boggy. Heart is regular rate and rhythm with no murmur. Lung sounds are clear. I&D performed on scalp wound. Patient will continue Keflex and wound care discussed. Discharge Plan Triage Chief Complaint: Abscess ED Midlevel Provider: Viola Oro ED Provider: Shelly Ordonez Dx/Rx/DC Orders Clinical Impression: Abscess or cellulitis of scalp Instructions: Cellulitis Dc, ED Abscess Incision And Drainage Prescriptions: No Action lisinopril 2.5 mg tablet 10 mg PO DAILY insulin lispro 100 unit/mL insulin pen 15 unit SUBCUT TIDCM gabapentin 100 mg Tablet 100 mg PO QHS insulin glargine [Lantus Solostar U-100 Insulin] 100 unit/mL (3 mL) insulin pen 35 unit SUBCUT BID pantoprazole 40 mg tablet,delayed release (DR/EC) 40 mg PO DAILY Qty: 30 0RF sucralfate [Carafate] 1 gram tablet 1 g PO TID 7 Days Qty: 21 0RF ondansetron [ondansetron] 4 mg tablet,disintegrating 8 mg PO Q8H PRN PRN (Reason: Nausea) Qty: 20 0RF dicyclomine 10 mg capsule 20 mg PO Q6H PRN (Reason: abdominal pain) Qty: 30 0RF Primary Care Provider: ROZ SANDERS Referrals: ROZ SANDERS [Other] Activity Restrictions/Additional Instructions: Keep clean with soap and water. Do not pick at the area. Keep taking your antibiotics and follow-up with your primary care doctor early next week for recheck. Disposition Disposition: Home, Self Care Discharge Date/Time: 02/18/23 16:27
[2023-02-18] MEDS: Lidocaine 1% (20 ml mdv) 20 ML Vial INFILT (16:08)
== END 2023-02-18 16:27 | disposition home or self-care (01) ==
PROVIDERS: Emergency Provider Emergency Medicine; Visit Provider Emergency Medicine
DX: L02.811 Cutaneous abscess of head [any part, except face] (principal); E11.9 Type 2 diabetes mellitus without complications; Z79.4 Long term (current) use of insulin; I10 Essential (primary) hypertension; Z79.899 Other long term (current) drug therapy
CPT/HCPCS: 10060; 99283

== ENCOUNTER 2023-04-10 08:44 | Emergency (ER) | payer MEDICAID, SELFPAY ==
[2023-04-10 08:45] VITALS: BP 134/78; PULSE 74; RESP 14; TEMP 36.6; O2SAT 99; BMI 47.7
--- NOTE | 2023-04-10 08:59 | EX.ED.DYSGE1 ---
HPI History of Present Illness Chief Complaint: Abscess Informant: patient Onset/Context/Timing Onset: Days Context: Gradual Onset Narrative Narrative: Patient presents with a painful lump under his left armpit that he noticed a couple days ago. He does have a history of multiple abscesses and requires frequent antibiotics. [facility] Medical History Diabetes Hypertension Home Medications insulin lispro 100 unit/mL subcutaneous pen 15 unit subcut TIDCM 08/14/21 [History Last Taken Unknown] lisinopril 2.5 mg tablet 10 mg PO DAILY 08/14/21 [History Last Taken Unknown] dicyclomine 10 mg capsule 20 mg (2 x 10 mg) PO Q6H PRN abdominal pain #30 CAPSULES 02/09/23 [Rx Last Taken Unknown] gabapentin 100 mg tablet 100 mg PO QHS 02/09/23 [History Last Taken Unknown] insulin glargine 100 unit/mL (3 mL) subcutaneous pen (Lantus Solostar U-100 Insulin) 35 unit subcut BID 02/09/23 [History Last Taken Unknown] ondansetron 4 mg disintegrating tablet 8 mg (2 x 4 mg) PO Q8H PRN PRN Nausea #20 tabs 02/09/23 [Rx Last Taken Unknown] pantoprazole 40 mg tablet,delayed release 40 mg PO DAILY #30 tabs 02/09/23 [Rx Last Taken Unknown] sucralfate 1 gram tablet (Carafate) 1 g PO TID 7 days #21 tabs 02/09/23 [Rx Last Taken Unknown] doxycycline monohydrate 100 mg capsule 100 mg PO BID #20 CAPSULES 04/10/23 [Rx Last Taken Unknown] Allergy/AdvReac Type Severity Reaction Status Date / Time Sulfa (Sulfonamide Allergy Rash Verified 04/10/23 08:45 Antibiotics) metformin AdvReac Vomiting Verified 04/10/23 08:45 Social History Smoking Status: Never smoker ROS ROS ED Constitutional Constitutional ED: Denies chills or fever(s) Eyes Eyes: Denies change in vision ENT ENT ED: Denies rhinorrhea or sore throat Cardiovascular Cardiovascular: Denies chest pain or palpitations Respiratory/Chest Respiratory/Chest: Denies cough or dyspnea Gastrointestinal Gastrointestinal: Denies abdominal pain, nausea or vomiting Genitourinary Genitourinary ED: Denies dysuria Musculoskeletal Musculoskeletal: Reports extremity pain; Denies back pain Integumentary Reports abscess; Denies Abrasions or rash Neurologic Neurologic: Denies headache(s) or weakness Psychiatric Psychiatric: Denies anxiety or depression Allergic/Immunologic Allergic/Immunologic ED: Denies lip swelling or urticaria EXAM Physical Exam Const Vital Signs: 04/10/23 08:45 Temperature 97.8 F Temperature Source Temporal Pulse Rate 74 Respiratory Rate 14 Blood Pressure 134/78 H Blood Pressure Mean 96 Pulse Ox 99 Oxygen Delivery Method Room Air Positive well nourished and well developed General Appearance ED: well developed HEENT Reports moist mucous membranes Eyes PERRL and EOMs intact bilaterally Neck no lymphadenopathy Chest Wall inspection of chest normal and palpation of chest normal Resp normal respiratory effort and clear to auscultation bilaterally Cardio regular rate and regular rhythm GI non-tender Neuro oriented x3 Skin Skin Narrative: Firm 1 x 3 cm area in the left axilla that feels like an enlarged lymph node. No overlying erythema. He does have an area of erythema a bit more superior to this but no focal fluctuance at this area. Patient has healing scabs noted on his scalp from previous abscesses. MDM MDM MDM Narrative Medical decision making narrative: Bedside ultrasound was performed over the area of firmness in the left axilla. This appears to be solid consistent with a lymph node. In light of this I will not perform an I&D at this time but will start him on antibiotics. He was advised that he may develop further signs of an abscess and need I&D. He voices understanding and agreement. Patient be treated with a course of doxycycline, first dose given here. Discharge Plan Triage Chief Complaint: Abscess ED Provider: Shelly Ordonez Dx/Rx/DC Orders Clinical Impression: Abscess Instructions: ED Abscess Antibiotic Treatment Only Prescriptions: New doxycycline monohydrate 100 mg capsule 100 mg PO BID Qty: 20 0RF No Action lisinopril 2.5 mg tablet 10 mg PO DAILY insulin lispro 100 unit/mL insulin pen 15 unit SUBCUT TIDCM gabapentin 100 mg Tablet 100 mg PO QHS insulin glargine [Lantus Solostar U-100 Insulin] 100 unit/mL (3 mL) insulin pen 35 unit SUBCUT BID pantoprazole 40 mg tablet,delayed release (DR/EC) 40 mg PO DAILY Qty: 30 0RF sucralfate [Carafate] 1 gram tablet 1 g PO TID 7 Days Qty: 21 0RF ondansetron [ondansetron] 4 mg tablet,disintegrating 8 mg PO Q8H PRN PRN (Reason: Nausea) Qty: 20 0RF dicyclomine 10 mg capsule 20 mg PO Q6H PRN (Reason: abdominal pain) Qty: 30 0RF Primary Care Provider: ROZ SANDERS Referrals: ROZ SANDERS [Other] - 1 Week Disposition Disposition: Home, Self Care
[2023-04-10] MEDS: Doxycycline 100 MG CAPSULE PO (09:22)
== END 2023-04-10 09:25 | disposition home or self-care (01) ==
LOC: ED 09:19
PROVIDERS: Emergency Provider Emergency Medicine; Visit Provider Emergency Medicine
DX: L02.412 Cutaneous abscess of left axilla (principal); E11.9 Type 2 diabetes mellitus without complications; Z79.4 Long term (current) use of insulin; I10 Essential (primary) hypertension; Z79.899 Other long term (current) drug therapy
CPT/HCPCS: 99283

== ENCOUNTER 2023-07-01 12:21 | Inpatient (IN) | payer MEDICAID, SELFPAY ==
[2023-07-01 12:23] VITALS: BP 140/85; PULSE 110; RESP 14; TEMP 35.9; O2SAT 96; BMI 44.9
--- NOTE | 2023-07-01 12:47 | EX.ED.DYSGE1 ---
HPI <Dr. Frida Wilson DO - Last Filed: 07/01/23 14:04> History of Present Illness Chief Complaint: Nausea/Vomiting <LORI Dueñas - Last Filed: 07/01/23 14:07> Narrative Narrative: Patient is a 32-year-old male with history of obesity, type 2 diabetes, hypertension, anxiety depression who presents to the emergency department for complaints of nausea, vomiting, elevated blood sugars. Patient states that for the last 12 to 15 hours, he has not been able to keep any p.o. fluids down. Patient states that his sugars been out of control. He denies any fever or chills. He states there was some blood mixed in with his vomit however he has been experiencing some significant vomiting. He denies any diarrhea. PENDING SALE TO [facility] <Dr. Frida Wilson DO - Last Filed: 07/01/23 14:04> PENDING SALE TO [facility] Medical History Diabetes Hypertension Home Medications insulin lispro 100 unit/mL subcutaneous pen 20 unit subcut TIDCM 08/14/21 [History Last Taken Unknown] lisinopril 2.5 mg tablet 10 mg PO DAILY 08/14/21 [History Last Taken Unknown] gabapentin 100 mg tablet 100 mg PO QHS PRN Feet pain 02/09/23 [History Last Taken Unknown] insulin glargine 100 unit/mL (3 mL) subcutaneous pen (Lantus Solostar U-100 Insulin) 50 unit subcut BID 02/09/23 [History Last Taken Unknown] Allergy/AdvReac Type Severity Reaction Status Date / Time cinnamon Allergy Anaphylaxis Verified 07/01/23 12:23 Sulfa (Sulfonamide Allergy Rash Verified 07/01/23 12:23 Antibiotics) metformin AdvReac Vomiting Verified 07/01/23 12:23 Social History Smoking Status: Never smoker ROS <LORI Dueñas - Last Filed: 07/01/23 14:07> ROS ED ROS Narrative Constitutional: Negative for fever, weight loss, weakness. Chills Eyes: Negative for vision loss, vision change, double vision ENT: Negative for any sore throat, ear pain, congestion Cardiovascular: Negative for any chest pain, tightness, palpitations Respiratory: Negative for any cough, sputum production, hemoptysis, dyspnea, dyspnea on exertion, orthopnea Gastrointestinal: Negative for any abdominal pain, constipation, blood in stool, blood in vomit. Nausea, vomiting, diarrhea : Negative for any urinary frequency, dysuria, retention, blood in urine Muscle skeletal: Negative for any muscle joint pain, stiffness, myalgias, arthralgias, neck pain, back pain Neurological: Negative for any headache, syncope, numbness or tingling, dizziness Skin: Negative for any rashes, lumps, itching, abrasions, lacerations Psychiatric: Negative for any depression, anxiety, stress, suicidal ideation, homicidal ideation Hematologic: Negative for any easy bruising, excessive bruising, easy bleeding Allergies: Negative for any eczema, hives, rash EXAM <Dr. Frida Wilson DO - Last Filed: 07/01/23 14:04> Physical Exam Const Vital Signs: 07/01/23 12:23 Temperature 96.7 F L Temperature Source Temporal Pulse Rate 110 H Respiratory Rate 14 Blood Pressure 140/85 H Blood Pressure Mean 103 Pulse Ox 96 Oxygen Delivery Method Room Air <LORI Dueñas - Last Filed: 07/01/23 14:07> Physical Exam Narrative Exam Narrative: Vital signs reviewed. HEET: Head normocephalic atraumatic, TMs clear bilaterally. Posterior pharynx is clear, dry mucous membranes. Nares clear bilaterally. Patient does have multiple lesions on his scalp, he states this is chronic and he has a special shampoo for this. Neck: Supple with no lymphadenopathy or tenderness. No signs of meningismus, negative jolt sign. Cardiac: Tachycardic rate no murmurs gallops or rubs, equal peripheral pulses bilaterally. Respiratory: Lungs clear to auscultation bilaterally. No chest tenderness. Abdomen: Soft, nontender, nondistended. No abdominal bruit or pulsatile masses. No hepatosplenomegaly Extremities: No peripheral edema, no signs of gross trauma or deformity. Active full range of motion of all extremities. Neuro: Cranial nerves II through XII intact, no focal neurological deficits. Skin: Clean dry and intact with no rash, purpura, petechiae, vesicles or pustules. Backs/flank: No CVA tenderness, no midline spinal tenderness, no deformity. Psych: Normal mood and affect. No SI, HI or acute psychosis. Const Vital Signs: 07/01/23 12:23 Temperature 96.7 F L Temperature Source Temporal Pulse Rate 110 H Respiratory Rate 14 Blood Pressure 140/85 H Blood Pressure Mean 103 Pulse Ox 96 Oxygen Delivery Method Room Air [facility] <Dr. Frida Wilson, DO - Last Filed: 07/01/23 14:04> [facility] Narrative Medical decision making narrative: I have personally performed a face to face assessment of the patient and have reviewed the LEI Note. I performed a substantive portion of the visit including all aspects of the following. My merino findings include: History is [patient presents to the emergency department with complaint of vomiting and diarrhea that started yesterday. Patient states that he has had countless numbers of watery stools and this is what initially started his illness. Patient subsequently started vomiting and has thrown up about 8 times. Patient took his insulin last night but states that since he has been throwing up he did not take his insulin this morning. His blood sugars have been running anywhere from 300-4 50. Patient denies any chest pain or abdominal pain. Patient presents via EMS from home.] Exam is [HEENT-PERRLA, EOMI. Cranial nerves II through XII grossly intact. TMs clear. Mucous membranes moist. No adenopathy. Cardiovascular-regular rate and rhythm without murmur or ectopy Lungs-clear to auscultation, chest wall stable without crepitus or subcu emphysema Abdomen-normoactive bowel sounds, soft, nontender, no rebound or rigidity, no peritoneal signs. Extremities-intact ?4, normal range of motion, normal pulses, atraumatic] Medical Decison Making [patient presents with vomiting and diarrhea and elevated blood glucose. In the differential would be viral gastroenteritis versus DKA. Patient will be given normal saline and Zofran. Patient states he has not had any more watery stool since around 6 AM.] Patient lab work did show an elevated white count of 14.6 which I suspect is likely reactive from all the vomiting and retching and diarrhea. He was noted to have an elevated blood sugar of 778. No evidence for DKA as he had a normal anion gap and no acetone. Patient had evidence of acute kidney injury with BUN of 22 and creatinine 1.77. Urinalysis was normal. While in department he did receive normal saline. We did order insulin subcu 10 units x 1. Discussed case with hospitalist to evaluate patient for admission Other additions or changes: [None] Lab Data Labs: Laboratory Results - last 24 hr 07/01/23 07/01/23 07/01/23 12:30 13:00 13:34 WBC 14.6 H RBC 6.50 H Hgb 16.6 H Hct 50.9 MCV 78.3 L MCH 25.5 L MCHC 32.6 RDW Std Deviation 41.1 RDW Coeff of [place]ano 15.4 H Plt Count 305 MPV 10.8 Immature Gran % (Auto) 2.100 H Neut % (Auto) 89.8 H Lymph % (Auto) 5.0 L [place] % (Auto) 2.5 Eos % (Auto) 0.1 Baso % (Auto) 0.5 Absolute Neuts (auto) 13.1 H Absolute Lymphs (auto) 0.73 L Nucleated RBC % 0 Sodium 126 L Potassium 5.3 H Chloride 91 L Carbon Dioxide 22.0 Anion Gap 13 BUN 22 H Creatinine 1.77 H Estim Creat Clear Calc 70.31 Est GFR (MDRD) Af Amer 58 L Est GFR (MDRD) Non-Af 48 L BUN/Creatinine Ratio 12.4 Glucose 787 H* Lactic Acid 3.1 H* Calcium 9.8 Total Bilirubin 1.50 H AST 5 L ALT 30 Alkaline Phosphatase 174 H Total Protein 8.9 H Albumin 3.7 Globulin 5.2 H Albumin/Globulin Ratio 0.7 L Lipase 42 Urine Color Yellow Urine Clarity Clear Urine pH 6.0 Ur Specific [place] 1.010 Urine Protein 30 H Urine Glucose (UA) 1000 H Urine Ketones 5 H Urine Occult Blood 10 H Urine Nitrite Negative Urine Bilirubin Negative Urine Urobilinogen Normal Ur Leukocyte Esterase 25 H Acetone Level NEGATIVE POC Glucose > 500 H* ABG Data ABG results: ABG 07/01/23 13:11 Specimen Type SHARLENE Sample Site Not entered O2 % 21.0 VBG pH 7.33 VBG pO2 32 VBG HCO3 22 VBG Total CO2 23 VBG O2 Sat (Calc) 57 VBG Base Excess -4 L POC Mix VBG pCO2 Pt Tmp 41.3 O2 Delivery Device Not entered <LORI Dueñas - Last Filed: 07/01/23 14:07> [facility] Lab Data Labs: Laboratory Results - last 24 hr 07/01/23 07/01/23 07/01/23 12:30 13:00 13:34 WBC 14.6 H RBC 6.50 H Hgb 16.6 H Hct 50.9 MCV 78.3 L MCH 25.5 L MCHC 32.6 RDW Std Deviation 41.1 RDW Coeff of [place] 15.4 H Plt Count 305 MPV 10.8 Immature Gran % (Auto) 2.100 H Neut % (Auto) 89.8 H Lymph % (Auto) 5.0 L [place] % (Auto) 2.5 Eos % (Auto) 0.1 Baso % (Auto) 0.5 Absolute Neuts (auto) 13.1 H Absolute Lymphs (auto) 0.73 L Nucleated RBC % 0 Sodium 126 L Potassium 5.3 H Chloride 91 L Carbon Dioxide 22.0 Anion Gap 13 BUN 22 H Creatinine 1.77 H Estim Creat Clear Calc 70.31 Est GFR (MDRD) Af Amer 58 L Est GFR (MDRD) Non-Af 48 L BUN/Creatinine Ratio 12.4 Glucose 787 H* Lactic Acid 3.1 H* Calcium 9.8 Total Bilirubin 1.50 H AST 5 L ALT 30 Alkaline Phosphatase 174 H Total Protein 8.9 H Albumin 3.7 Globulin 5.2 H Albumin/Globulin Ratio 0.7 L Lipase 42 Urine Color Yellow Urine Clarity Clear Urine pH 6.0 Ur Specific [place] 1.010 Urine Protein 30 H Urine Glucose (UA) 1000 H Urine Ketones 5 H Urine Occult Blood 10 H Urine Nitrite Negative Urine Bilirubin Negative Urine Urobilinogen Normal Ur Leukocyte Esterase 25 H Acetone Level NEGATIVE POC Glucose > 500 H* ABG Data ABG results: ABG 07/01/23 13:11 Specimen Type SHARLENE Sample Site Not entered O2 % 21.0 VBG pH 7.33 VBG pO2 32 VBG HCO3 22 VBG Total CO2 23 VBG O2 Sat (Calc) 57 VBG Base Excess -4 L POC Mix VBG pCO2 Pt Tmp 41.3 O2 Delivery Device Not entered Treatment and Re-Evaluation :: Patient appears to be in no obvious respiratory distress, patient does not appear to be in slight distress secondary to nausea. I do not smell any ketones. Patient presents to the emergency department complaints of generalized weakness, nausea, vomiting, diarrhea elevated blood sugar. Differential diagnosis includes gastroenteritis, DKA, bowel obstruction. Patient has no abdominal pain on palpation. Patient did receive a full work-up concerning for DKA. Patient's lab values showed a leukocytosis with a white blood count of 14.6, hemoconcentration with a hemoglobin of 16 6, patient's chemistries show sodium 126, this is likely secondary to the patient's blood sugar being 787. Patient's GFR is 48, in January it was 117. Patient's creatinine was 1.77, again in middle of January 2023, 0.82, this is consistent with an RADHA. Lactic acid was 3.1, lactic acidosis. This is likely secondary elevated blood sugar, nausea and vomiting, dehydration. Patient is total bilirubin is 1.5. Lipase was negative. Acetone level was negative. Patient's urinalysis was negative for any infection. Patient did receive 2 L of normal saline, 10 units of subcu insulin, IV Zofran. On reevaluation, the patient was still feeling nauseous, was redosed with IV Reglan. Secondary the patient's abnormal lab values, lactic acidosis, elevated blood sugar, patient will need to be admitted the hospital. I spoke with the hospitalist, she accepts the patient. Discharge Plan Dx/Rx/DC Orders Clinical Impression: RADHA (acute kidney injury), Viral gastroenteritis, Hyperglycemia, Acute hyponatremia Disposition Disposition: Acute Care [facility]
[2023-07-01 12:49] LABS: Bedside Glucose > 500 mg/dL (74-106)
[2023-07-01] MEDS: 0.9% Normal Saline (1000mL) 1,000 ML 1000 ML IV (13:05)
[2023-07-01] MEDS: Ketorolac 15 MG/ML Vial IV (13:05)
[2023-07-01] MEDS: Ondansetron 4 MG/2 ML Vial IV (13:06)
[2023-07-01 13:12] LABS: Absolute Lymphocyte Count 0.73 X10^3/uL (0.83-4.51); Absolute Neutrophil Count 13.1 X10^3/uL (2.0-7.7); Basophil# 0.07 X10^3/uL; Basophil% 0.5 % (0-1); Eosinophil# 0.01 X10^3/uL; Eosinophils% 0.1 % (0-5); Hematocrit 50.9 % (40-54); Hemoglobin 16.6 g/dL (13.0-16.5); Lymphocyte # 0.73 X10^3/ul (0.83-4.51); Mean Corp Hgb Conc 32.6 g/dL (32-36); Mean Corpuscular Hgb 25.5 pg (27.0-32.0); Mean Corpuscular Volume 78.3 fL (80-94); Mean Platelet Vol. 10.8 fl (6.2-12.0); Monocyte# 0.36 X10^3/uL; Monocyte% 2.5 % (0-10); NRBC Flagged by Analyzer 0 % (0-5); Neutrophil # 13.09 X10^3/uL (2.7-7.7); Neutrophil % 89.8 % (47-70); Platelet Count 305 K/mm3 (150-450); RBC Distribution Width CV 15.4 % (11.6-14.6); RBC Distribution Width SD 41.1 fl (35.1-43.9); White Blood Count 14.6 K/mm3 (4.4-11.0)
[2023-07-01 13:16] LABS: Blood Gas Specimen Type VEN; O2 Delivery Device Not entered; SITE Not entered; VBG BASE EXCESS -4 mmol/L (-1.0-3.5); VBG Bicarbonate 22 mmol/L (22-26); VBG PO2 32 mmHg (25-40); VBG SO2 57 % (50-70); VBG TCO2 23 mmol/L (23-33); VBG pCO2 41.3 mmHg (41-51); VBG pH 7.33 (7.32-7.42)
[2023-07-01 13:37] LABS: ALB/GLOB Ratio 0.7 RATIO (0.9-2.4); AST(SGOT) 5 U/L (15-37); Alanine Aminotransfer ALT/SGPT 30 U/L (16-61); Albumin, Serum 3.7 g/dL (3.2-5.0); Alkaline Phosphatase 174 U/L (45-117); Anion Gap 13 (5-15); BUN 22 mg/dL (7-18); BUN/Creat Ratio 12.4 RATIO (10-20); Calcium,Total 9.8 mg/dL (8.5-10.1); Chloride 91 mmol/L (98-107); Creatinine, Serum 1.77 mg/dL (0.70-1.30); EST Glomerular Filtration Rate 48 mL/min (>60); Est Glom Filt Rate - Afr Amer 58 mL/min (>60); Estimated Creatinine Clearance 70.31 ml/min; Globulin 5.2 g/dL (2.2-4.2); Glucose 787 mg/dL (74-106); Lactic Acid 3.1 mmol/L (0.4-1.9); Lipase 42 U/L (13-75); Potassium 5.3 mmol/L (3.5-5.1); Protein, Total 8.9 g/dL (6.4-8.2); Sodium Level 126 mmol/L (136-145)
[2023-07-01 13:40] LABS: Mucous, Urine 0 SEEN /hpf (<or=2+); Red Blood Cells-Urine 0 SEEN /hpf (0-5)
[2023-07-01 13:45] LABS: Color, Urine Yellow (Yellow); Glucose, Dipstick 1000 mg/dl (Normal); Ketone-Dipstick 5 mg/dl (Negative); Leukocyte Esterase-Dipstick 25 /ul (Negative); Nitrite-Dipstick Negative (Negative); Occult Blood-Urine 10 /ul (Negative); Protein-Dipstick 30 mg/dl (Negative); Urine Bilirubin Dipstick Negative (Negative); Urine Clarity Clear (Clear); Urine Urobilinogen Normal (Normal)
[2023-07-01 14:05] LABS: Bacteria RARE /hpf (None Seen); Squamous Epithelial Cells - UA 0-5 SEEN /hpf (0-5); White Blood Cells 0-5 SEEN /hpf (0-5)
--- NOTE | 2023-07-01 14:09 | NURSING ---
PCU [place] HYPERGLYCEMIA, ACUTE KIDNEY INJURY, LACTIC ACIDOSIS
[2023-07-01] MEDS: Metoclopramide 10 MG/2 ML Vial 5 MG IV (14:19)
[2023-07-01] MEDS: Insulin Lispro 100 UNIT/ML INSULN.PEN 10 UNIT SC (14:20)
[2023-07-01 14:26] VITALS: BP 142/58; PULSE 82; RESP 16; O2SAT 98
[2023-07-01 14:45] VITALS: BP 138/82; PULSE 109; RESP 18; TEMP 35.9; O2SAT 97; BMI 44.6
--- NOTE | 2023-07-01 15:01 | PCM.HP.STD ---
HPI - General General Date of Admission: 07/01/23 Date of Service: 07/01/23 Chief Complaint: intractable n/v HPI Narrative BEKA AVILES, is a 32 M with a history of type 2 diabetes mellitus who presented to [facility] 07/01/2023 with intractable nausea and vomiting. Yesterday morning he began having a fair amount of diarrhea despite no medication changes and no food changes and then at midnight he began having nausea and vomiting and has not been able to eat or drink anything since that time, will feel dizzy and lightheaded when he tries to stand up and feels weak overall so he presented to the hospital. CBC appeared hemoconcentrated and he had a creatinine of 1.77 up from his baseline of 1.8-1.9, total bili 1.5, lactic acid 3.1 and a glucose of 787 but he had negative acetone and was not felt to be in DKA however was profoundly dehydrated so hospitalist contacted for admission. Patient evaluated with grandmother at bedside he reports history as above. Does report his glucose has not been well controlled since he switched doctors months ago and his insulin was decreased. In the past 1 to 2 weeks his doses have been uptitrated to try to achieve better control but denies any other medication changes before the onset of his diarrhea, nausea/vomiting. Denies any abdominal pain whatsoever and no burning on urination, has a headache but denies any other physical complaints at this time. Reports he was here 6 months ago for his gallbladder but it was not removed at the time and he said this feels nothing like that felt. Does have 2 amputations from diabetic foot infections reports no recent infections or wounds. [facility] Medical History Diabetes Hypertension Home Medications insulin lispro 100 unit/mL subcutaneous pen 20 unit subcut TIDCM 08/14/21 [History Last Taken Unknown] lisinopril 2.5 mg tablet 10 mg PO DAILY 08/14/21 [History Last Taken Unknown] gabapentin 100 mg tablet 100 mg PO QHS PRN Feet pain 02/09/23 [History Last Taken Unknown] insulin glargine 100 unit/mL (3 mL) subcutaneous pen (Lantus Solostar U-100 Insulin) 50 unit subcut BID 02/09/23 [History Last Taken Unknown] Allergy/AdvReac Type Severity Reaction Status Date / Time cinnamon Allergy Anaphylaxis Verified 07/01/23 12:23 Sulfa (Sulfonamide Allergy Rash Verified 07/01/23 12:23 Antibiotics) metformin AdvReac Vomiting Verified 07/01/23 12:23 Social History Smoking Status: Never smoker ROS ROS Narrative General: Denies fever/chills HENT: Does have headache, denies stuffy nose, denies sore throat EYES: Denies changes in vision Resp: Denies cough, denies shortness of breath Cardiac: Denies chest pain GI: Denies abdominal pain, intractable nausea, vomiting, has had diarrhea : Denies changes in urination Extremity: Denies swelling MSK: Denies weakness Neuro: Chronic numbness in lower extremities from neuropathy Heme: Denies any bleeding or bruising Skin: Denies rashes Psychiatric: No complaints voiced Vital Signs Vital Signs Vital Signs: 07/01/23 12:23 07/01/23 14:26 Temperature 96.7 F L Temperature Source Temporal Pulse Rate 110 H 82 Respiratory Rate 14 16 Blood Pressure 140/85 H 142/58 H Blood Pressure Mean 103 86 Pulse Ox 96 98 Oxygen Delivery Method Room Air Weight Weight: 158.6 kg Body Mass Index (BMI) 44.9 Physical Exam Narrative General: Alert, oriented, appears to not feel well HEENT: Atraumatic, normocephalic Eyes: Anicteric, normal conjunctiva, extraocular movements grossly intact Neck: Supple Respiratory: Clear to auscultation bilaterally, normal respiratory effort Cardiovascular: Slightly tachycardic, regular rate GI: Soft, nontender, nondistended Extremities: No edema Musculoskeletal: Moving all extremities Neuro: No overt focal neurological deficits Skin: No rashes appreciated Psych: Cooperative Results Lab / Micro Data 07/01/23 13:00 07/01/23 13:00 Labs: Laboratory Results - last 24 hr 07/01/23 12:30: POC Glucose > 500 H* 07/01/23 13:00: WBC 14.6 H, RBC 6.50 H, Hgb 16.6 H, Hct 50.9, MCV 78.3 L, MCH 25.5 L, MCHC 32.6, RDW Std Deviation 41.1, RDW Coeff of [place]ano 15.4 H, Plt Count 305, MPV 10.8, Immature Gran % (Auto) 2.100 H, Neut % (Auto) 89.8 H, Lymph % (Auto) 5.0 L, [place] % (Auto) 2.5, Eos % (Auto) 0.1, Baso % (Auto) 0.5, Absolute Neuts (auto) 13.1 H, Absolute Lymphs (auto) 0.73 L, Nucleated RBC % 0, Sodium 126 L, Potassium 5.3 H, Chloride 91 L, Carbon Dioxide 22.0, Anion Gap 13, BUN 22 H, Creatinine 1.77 H, Estim Creat Clear Calc 70.31, Est GFR (MDRD) Af Amer 58 L, Est GFR (MDRD) Non-Af 48 L, BUN/Creatinine Ratio 12.4, Glucose 787 H*, Lactic Acid 3.1 H*, Calcium 9.8, Total Bilirubin 1.50 H, AST 5 L, ALT 30, Alkaline Phosphatase 174 H, Total Protein 8.9 H, Albumin 3.7, Globulin 5.2 H, Albumin/Globulin Ratio 0.7 L, Lipase 42, Acetone Level NEGATIVE 07/01/23 13:34: Urine Color Yellow, Urine Clarity Clear, Urine pH 6.0, Ur Specific [place] 1.010, Urine Protein 30 H, Urine Glucose (UA) 1000 H, Urine Ketones 5 H, Urine Occult Blood 10 H, Urine Nitrite Negative, Urine Bilirubin Negative, Urine Urobilinogen Normal, Ur Leukocyte Esterase 25 H, Urine RBC 0 SEEN, Urine WBC 0-5 SEEN, Ur Squamous Epith Cells 0-5 SEEN, Urine Bacteria RARE, Urine Mucus 0 SEEN ABG Data ABG results: ABG 07/01/23 13:11 Specimen Type SHARLENE Sample Site Not entered O2 % 21.0 VBG pH 7.33 VBG pO2 32 VBG HCO3 22 VBG Total CO2 23 VBG O2 Sat (Calc) 57 VBG Base Excess -4 L POC Mix VBG pCO2 Pt Tmp 41.3 O2 Delivery Device Not entered Assessment & Plan Assessment/Plan (1) Intractable nausea and vomiting: (2) Diabetes mellitus, type 2: (3) RADHA (acute kidney injury): PLAN: Plan #Intractable nausea/vomiting with diarrhea -No abdominal pain so did not scan abdomen however may have GI source given acute onset of diarrhea and vomiting so stool studies ordered -Continue IV fluids -Zofran with as needed Compazine for breakthrough -Clear liquid diet -Does have elevated white blood cell count however also has elevated hemoglobin, suspect CBC is somewhat reactive and hemoconcentrated as well, possibly has viral gastroenteritis but do not see any other signs or symptoms of infection requiring further scanning or empiric antibiotics at this time, will monitor with supportive care #RADHA and lactic acid elevation -Suspect secondary to dehydration -Continue IV fluid -Hold lisinopril #Type II but diabetes mellitus with hyperglycemia -Glucose greater than 700 on presentation, given 10 of insulin and fluids in ED, will recheck -Continue 50 twice daily of Lantus, sliding scale with high correction factor -Not in DKA -Check A1c -Appear to be hyponatremic however corrected sodium is 137 #Morbid obesity -BMI 44.9 kg/m? -Complicates treatment, prognosis, outcomes -Recommend weight loss and lifestyle changes #DVT ppx: Heparin subcu Joyce Irwin MD Time spent in the patient's overall evaluation,decision-making process, review of diagnostic data, adjustment of management, discussion with other providers, nursing nursing and ancillary staff involved in patient's care documentation, 56 minutes Charges/Coding Visit Charges Inpatient E&M: 82145 Init Hosp L2
[2023-07-01] MEDS: 0.9% Normal Saline (1000mL) 1,000 ML 100 ML IV (15:38)
[2023-07-01 16:38] LABS: Anion Gap 13 (5-15); BUN 22 mg/dL (7-18); BUN/Creat Ratio 12.3 RATIO (10-20); Calcium,Total 9.9 mg/dL (8.5-10.1); Chloride 91 mmol/L (98-107); Creatinine, Serum 1.79 mg/dL (0.70-1.30); EST Glomerular Filtration Rate 47 mL/min (>60); Est Glom Filt Rate - Afr Amer 57 mL/min (>60); Estimated Creatinine Clearance 69.52 ml/min; Glucose 829 mg/dL (74-106); Potassium 5.3 mmol/L (3.5-5.1); Sodium Level 125 mmol/L (136-145); Thyroid Stim Hormone (TSH) 1.64 uIU/mL (0.358-3.74)
[2023-07-01 16:40] LABS: Hemoglobin A1c 10.1 % (3.8-5.6)
[2023-07-01 17:02] LABS: Bedside Glucose > 500 mg/dL (74-106)
[2023-07-01 17:06] LABS: Reflex Lactate? Y
[2023-07-01 17:37] LABS: Glucose 738 mg/dL (74-106)
[2023-07-01] MEDS: proCHLORPERazine 10 MG/2 ML Vial 5 MG IV (17:48)
[2023-07-01] MEDS: Insulin Glargine-YFGN 100 UNIT/ML Pen 50 UNIT SC (17:48)
[2023-07-01] MEDS: Insulin Lispro 100 UNIT/ML INSULN.PEN SC (17:49)
[2023-07-01] MEDS: 0.9% Saline Lock 10 ML Syringe IV (17:50)
[2023-07-01] MEDS: Insulin Lispro 100 UNIT/ML INSULN.PEN 20 UNIT SC ×3 (18:06→22:30)
[2023-07-01 18:24] LABS: Lactic Acid 2.1 mmol/L (0.4-1.9)
[2023-07-01] MEDS: Pantoprazole Sodium 40 MG in 0.9% Normal Saline (100mL MB+) 100 ML 330 MG IV (19:42)
--- NOTE | 2023-07-01 20:20 | EKG12_ITS ---
Test Reason : CP Blood Pressure : / mmHG Vent. Rate : 120 BPM Atrial Rate : 120 BPM P-R Int : 144 ms QRS Dur : 082 ms QT Int : 340 ms P-R-T Axes : 053 030 025 degrees QTc Int : 480 ms Sinus tachycardia Cannot rule out Inferior infarct (cited on or before 13-DEC-2022) Abnormal ECG When compared with ECG of 13-DEC-2022 09:30, T wave inversion no longer evident in Anterior leads Confirmed by DALILA WILSON, ROGERS ([id number]), news copy editor JERED DENT ([id number]) on 07/10/2023 11:05:18 AM Referred By: KRISH Confirmed By:SACHIN CONNER MD
[2023-07-01 20:45] LABS: Anion Gap 9 (5-15); BUN 28 mg/dL (7-18); BUN/Creat Ratio 18.4 RATIO (10-20); Calcium,Total 9.6 mg/dL (8.5-10.1); Chloride 98 mmol/L (98-107); Creatinine, Serum 1.52 mg/dL (0.70-1.30); EST Glomerular Filtration Rate 57 mL/min (>60); Est Glom Filt Rate - Afr Amer 69 mL/min (>60); Estimated Creatinine Clearance 81.87 ml/min; Glucose 672 mg/dL (74-106); Potassium 4.9 mmol/L (3.5-5.1); Sodium Level 129 mmol/L (136-145)
[2023-07-01 21:35] VITALS: BP 115/78; PULSE 97; RESP 17; TEMP 36.8; O2SAT 95
[2023-07-01] MEDS: Heparin Injection (Vial) 5,000 UNIT/ML VIAL 5000 UNIT SC (21:38)
[2023-07-01 22:30] LABS: Bedside Glucose > 500 mg/dL (74-106)
[2023-07-01] MEDS: Miconazole Nitrate 43 GM Bottle 1 APPLIC TOPICAL (22:37)
[2023-07-02] MEDS: 0.9% Normal Saline (1000mL) 1,000 ML 100 ML IV ×3 (01:18→18:24)
[2023-07-02 03:24] VITALS: BP 134/77; PULSE 113; RESP 16; TEMP 36.8; O2SAT 97
[2023-07-02] MEDS: Heparin Injection (Vial) 5,000 UNIT/ML VIAL 5000 UNIT SC ×3 (06:31→21:14)
[2023-07-02] MEDS: Insulin Lispro 100 UNIT/ML INSULN.PEN SC ×4 (06:32→21:15)
[2023-07-02 06:53] LABS: Bedside Glucose 416 mg/dL (74-106)
[2023-07-02 07:18] LABS: Absolute Neutrophil Count 13.3 X10^3/uL (2.0-7.7); Basophil# 0.05 X10^3/uL; Basophil% 0.3 % (0-1); Eosinophil# 0.15 X10^3/uL; Eosinophils% 0.9 % (0-5); Hematocrit 50.9 % (40-54); Hemoglobin 16.6 g/dL (13.0-16.5); Lymphocyte % 11.5 % (19-41); Mean Corp Hgb Conc 32.6 g/dL (32-36); Mean Corpuscular Hgb 25.3 pg (27.0-32.0); Mean Corpuscular Volume 77.7 fL (80-94); Mean Platelet Vol. 11.1 fl (6.2-12.0); Monocyte# 0.97 X10^3/uL; Monocyte% 5.9 % (0-10); NRBC Flagged by Analyzer 0 % (0-5); Neutrophil % 80.6 % (47-70); Platelet Count 300 K/mm3 (150-450); RBC Distribution Width CV 15.7 % (11.6-14.6); RBC Distribution Width SD 41.1 fl (35.1-43.9); Red Blood Count 6.55 M/mm3 (4.6-6.2); White Blood Count 16.5 K/mm3 (4.4-11.0)
[2023-07-02 07:47] LABS: ALB/GLOB Ratio 0.8 RATIO (0.9-2.4); AST(SGOT) 12 U/L (15-37); Alanine Aminotransfer ALT/SGPT 25 U/L (16-61); Albumin, Serum 3.6 g/dL (3.2-5.0); Alkaline Phosphatase 159 U/L (45-117); Anion Gap 8 (5-15); BUN 34 mg/dL (7-18); BUN/Creat Ratio 23.1 RATIO (10-20); Calcium,Total 9.6 mg/dL (8.5-10.1); Chloride 100 mmol/L (98-107); Creatinine, Serum 1.47 mg/dL (0.70-1.30); EST Glomerular Filtration Rate 59 mL/min (>60); Est Glom Filt Rate - Afr Amer 72 mL/min (>60); Estimated Creatinine Clearance 84.65 ml/min; Globulin 4.8 g/dL (2.2-4.2); Glucose 419 mg/dL (74-106); Magnesium 2.4 mg/dL (1.6-2.6); Potassium 4.2 mmol/L (3.5-5.1); Protein, Total 8.4 g/dL (6.4-8.2); Sodium Level 130 mmol/L (136-145)
--- NOTE | 2023-07-02 09:03 | PCM.PN.HOSP ---
Subjective Subjective Nausea and vomiting is improved but still does not feel back to baseline Objective Data Objective Data Vital Signs: Vital Signs Temp Pulse Resp BP Pulse Ox O2 Del Method 98.2 F 113 H 16 134/77 H 97 Room Air 07/02/23 03:24 07/02/23 03:24 07/02/23 03:24 07/02/23 03:24 07/02/23 03:24 07/02/23 03:24 Oxygen Delivery Method Room Air Weight: 347 lb 3.649 oz Body Mass Index (BMI) 44.6 Intake & Output: Intake and Output for Last 24 Hours 07/01/23 07/02/23 07/03/23 04:59 03:59 03:59 Intake Total Output Total Balance Lab / Micro Data 07/02/23 05:20 07/02/23 05:20 Labs: Laboratory Results - last 24 hr 07/01/23 12:30: POC Glucose > 500 H* 07/01/23 13:00: WBC 14.6 H, RBC 6.50 H, Hgb 16.6 H, Hct 50.9, MCV 78.3 L, MCH 25.5 L, MCHC 32.6, RDW Std Deviation 41.1, RDW Coeff of Dano 15.4 H, Plt Count 305, MPV 10.8, Immature Gran % (Auto) 2.100 H, Neut % (Auto) 89.8 H, Lymph % (Auto) 5.0 L, [place] % (Auto) 2.5, Eos % (Auto) 0.1, Baso % (Auto) 0.5, Absolute Neuts (auto) 13.1 H, Absolute Lymphs (auto) 0.73 L, Nucleated RBC % 0, Sodium 126 L 07/01/23 13:00: Sodium 125 L, Potassium 5.3 H 07/01/23 13:00: Potassium 5.3 H, Chloride 91 L 07/01/23 13:00: Chloride 91 L, Carbon Dioxide 22.0 07/01/23 13:00: Carbon Dioxide 21.0, Anion Gap 13 07/01/23 13:00: Anion Gap 13, BUN 22 H 07/01/23 13:00: BUN 22 H, Creatinine 1.77 H 07/01/23 13:00: Creatinine 1.79 H, Estim Creat Clear Calc 70.31 07/01/23 13:00: Estim Creat Clear Calc 69.52, Est GFR (MDRD) Af Amer 58 L 07/01/23 13:00: Est GFR (MDRD) Af Amer 57 L, Est GFR (MDRD) Non-Af 48 L 07/01/23 13:00: Est GFR (MDRD) Non-Af 47 L, BUN/Creatinine Ratio 12.4 07/01/23 13:00: BUN/Creatinine Ratio 12.3, Glucose 787 H* 07/01/23 13:00: Glucose 829 H*, Hemoglobin A1c 10.1 H, Lactic Acid 3.1 H*, Calcium 9.8 07/01/23 13:00: Calcium 9.9, Total Bilirubin 1.50 H, AST 5 L, ALT 30, Alkaline Phosphatase 174 H, Total Protein 8.9 H, Albumin 3.7, Globulin 5.2 H, Albumin/Globulin Ratio 0.7 L, Lipase 42, TSH 1.64, Acetone Level NEGATIVE 07/01/23 13:34: Urine Color Yellow, Urine Clarity Clear, Urine pH 6.0, Ur Specific [place] 1.010, Urine Protein 30 H, Urine Glucose (UA) 1000 H, Urine Ketones 5 H, Urine Occult Blood 10 H, Urine Nitrite Negative, Urine Bilirubin Negative, Urine Urobilinogen Normal, Ur Leukocyte Esterase 25 H, Urine RBC 0 SEEN, Urine WBC 0-5 SEEN, Ur Squamous Epith Cells 0-5 SEEN, Urine Bacteria RARE, Urine Mucus 0 SEEN 07/01/23 16:44: POC Glucose > 500 H* 07/01/23 17:03: Glucose 738 H* 07/01/23 17:35: Lactic Acid 2.1 H* 07/01/23 19:59: Sodium 129 L, Potassium 4.9, Chloride 98, Carbon Dioxide 22.0, Anion Gap 9, BUN 28 H, Creatinine 1.52 H, Estim Creat Clear Calc 81.87, Est GFR (MDRD) Af Amer 69, Est GFR (MDRD) Non-Af 57 L, BUN/Creatinine Ratio 18.4, Glucose 672 H*, Calcium 9.6 07/01/23 22:05: POC Glucose > 500 H* 07/02/23 05:20: WBC 16.5 H, RBC 6.55 H, Hgb 16.6 H, Hct 50.9, MCV 77.7 L, MCH 25.3 L, MCHC 32.6, RDW Std Deviation 41.1, RDW Coeff of Dano 15.7 H, Plt Count 300, MPV 11.1, Immature Gran % (Auto) 0.800, Neut % (Auto) 80.6 H, Lymph % (Auto) 11.5 L, [place] % (Auto) 5.9, Eos % (Auto) 0.9, Baso % (Auto) 0.3, Absolute Neuts (auto) 13.3 H, Absolute Lymphs (auto) 1.90, Nucleated RBC % 0, Sodium 130 L, Potassium 4.2, Chloride 100, Carbon Dioxide 22.0, Anion Gap 8, BUN 34 H, Creatinine 1.47 H, Estim Creat Clear Calc 84.65, Est GFR (MDRD) Af Amer 72, Est GFR (MDRD) Non-Af 59 L, BUN/Creatinine Ratio 23.1 H, Glucose 419 H, Calcium 9.6, Magnesium 2.4, Total Bilirubin 0.80, AST 12 L, ALT 25, Alkaline Phosphatase 159 H, Total Protein 8.4 H, Albumin 3.6, Globulin 4.8 H, Albumin/Globulin Ratio 0.8 L 07/02/23 06:30: POC Glucose 416 H ABG Data ABG results: ABG 07/01/23 13:11 Specimen Type SHARLENE Sample Site Not entered O2 % 21.0 VBG pH 7.33 VBG pO2 32 VBG HCO3 22 VBG Total CO2 23 VBG O2 Sat (Calc) 57 VBG Base Excess -4 L POC Mix VBG pCO2 Pt Tmp 41.3 O2 Delivery Device Not entered Physical Exam Narrative General: Alert, Oriented x3, Cooperative, No apparent distress HEENT: Atraumatic, PERRLA, EOMI, Normocephalic Oral: Moist Mucosa Neck: Supple, No JVD Lungs: Clear to auscultation, Normal air movement, No rhonchi, No wheeze, No rales Cardiovascular: Regular rate, Regular Rhythm, Normal S1, Normal S2, No murmurs Abdomen: Soft, Non Tender, Non-Distended, No Hepato-splenomegaly Extremities: No edema, Capillary Refill Less than 3 Seconds Skin: No rashes, No breakdown Musculoskeletal: No Tenderness to Palpation of Joints or Extremities Neurological: Cranial nerves II-XII grossly intact, Motor Exam 5/5 strength throughout, Sensory exam intact to light touch and pain Psych/Mental Status: Normal Affect, Appropriate Assessment & Plan Assessment/Plan (1) Intractable nausea and vomiting: (2) Diabetes mellitus, type 2: (3) RADHA (acute kidney injury): PLAN: Plan #Intractable nausea/vomiting with diarrhea -No abdominal pain so did not scan abdomen however may have GI source given acute onset of diarrhea and vomiting so stool studies ordered -Continue IV fluids -Zofran with as needed Compazine for breakthrough -Clear liquid diet -Does have elevated white blood cell count however also has elevated hemoglobin, suspect CBC is somewhat reactive and hemoconcentrated as well, possibly has viral gastroenteritis but do not see any other signs or symptoms of infection requiring further scanning or empiric antibiotics at this time, will monitor with supportive care 07/02/2023: Still awaiting stool studies white count is climbing which could just be reactive given that he is feeling better and is afebrile #RADHA and lactic acid elevation -Suspect secondary to dehydration -Continue IV fluid -Hold lisinopril 07/02/2023: Renal function is improving continue with IV fluids #Type II but diabetes mellitus with hyperglycemia -Glucose greater than 700 on presentation, given 10 of insulin and fluids in ED, will recheck -Continue 50 twice daily of Lantus, sliding scale with high correction factor -Not in DKA -Check A1c -Appear to be hyponatremic however corrected sodium is 137 07/02/2023: We will monitor and make adjustments as necessary #Morbid obesity -BMI 44.9 kg/m? -Complicates treatment, prognosis, outcomes -Recommend weight loss and lifestyle changes DVT: Heparin Charges/Coding Visit Charges Inpatient E&M: 64275 Subs Hosp L2
[2023-07-02] MEDS: 0.9% Saline Lock 10 ML Syringe IV (09:04)
[2023-07-02] MEDS: Pantoprazole Sodium 40 MG in 0.9% Normal Saline (100mL MB+) 100 ML 330 MG IV (09:05)
[2023-07-02] MEDS: Miconazole Nitrate 43 GM Bottle 1 APPLIC TOPICAL ×2 (09:07→21:16)
[2023-07-02] MEDS: Insulin Glargine-YFGN 100 UNIT/ML Pen 50 UNIT SC ×2 (09:07→21:15)
[2023-07-02 09:24] VITALS: BP 131/84; PULSE 109; RESP 16; TEMP 35.9; O2SAT 96
[2023-07-02 10:43] LABS: Bedside Glucose 438 mg/dL (74-106)
[2023-07-02 15:24] VITALS: BP 128/76; PULSE 103; RESP 18; TEMP 36.1; O2SAT 98
[2023-07-02 17:12] LABS: Bedside Glucose 351 mg/dL (74-106)
[2023-07-02 21:24] VITALS: BP 116/80; PULSE 107; RESP 14; TEMP 36.3; O2SAT 94
[2023-07-02 21:47] LABS: Bedside Glucose 236 mg/dL (74-106)
[2023-07-03 03:00] VITALS: BP 109/75; PULSE 104; RESP 15; TEMP 36.2; O2SAT 94
[2023-07-03] MEDS: 0.9% Normal Saline (1000mL) 1,000 ML 100 ML IV ×2 (04:18→14:43)
[2023-07-03 04:50] LABS: Absolute Lymphocyte Count 2.34 X10^3/uL (0.83-4.51); Absolute Neutrophil Count 6.6 X10^3/uL (2.0-7.7); Basophil# 0.06 X10^3/uL; Basophil% 0.6 % (0-1); Eosinophil# 0.39 X10^3/uL; Eosinophils% 3.8 % (0-5); Hematocrit 45.3 % (40-54); Lymphocyte # 2.34 X10^3/ul (0.83-4.51); Lymphocyte % 22.9 % (19-41); Mean Corp Hgb Conc 33.1 g/dL (32-36); Mean Corpuscular Volume 78.4 fL (80-94); Mean Platelet Vol. 10.2 fl (6.2-12.0); Monocyte# 0.69 X10^3/uL; Monocyte% 6.8 % (0-10); NRBC Flagged by Analyzer 0 % (0-5); Neutrophil # 6.62 X10^3/uL (2.7-7.7); Neutrophil % 64.8 % (47-70); Platelet Count 243 K/mm3 (150-450); RBC Distribution Width CV 14.9 % (11.6-14.6); RBC Distribution Width SD 41.5 fl (35.1-43.9); Red Blood Count 5.78 M/mm3 (4.6-6.2); White Blood Count 10.2 K/mm3 (4.4-11.0)
[2023-07-03 05:32] LABS: Anion Gap 6 (5-15); BUN 18 mg/dL (7-18); BUN/Creat Ratio 21.8 RATIO (10-20); Calcium,Total 8.5 mg/dL (8.5-10.1); Chloride 107 mmol/L (98-107); Creatinine, Serum 0.83 mg/dL (0.70-1.30); EST Glomerular Filtration Rate 115 mL/min (>60); Est Glom Filt Rate - Afr Amer 139 mL/min (>60); Estimated Creatinine Clearance 149.93 ml/min; Glucose 270 mg/dL (74-106); Potassium 3.6 mmol/L (3.5-5.1); Sodium Level 136 mmol/L (136-145)
[2023-07-03] MEDS: Insulin Lispro 100 UNIT/ML INSULN.PEN SC ×4 (06:25→23:28)
[2023-07-03] MEDS: Heparin Injection (Vial) 5,000 UNIT/ML VIAL 5000 UNIT SC ×3 (06:25→21:14)
[2023-07-03 06:46] LABS: Bedside Glucose 265 mg/dL (74-106)
[2023-07-03 09:00] VITALS: BP 123/81; PULSE 98; RESP 15; TEMP 36.8; O2SAT 98
[2023-07-03] MEDS: Pantoprazole Sodium 40 MG in 0.9% Normal Saline (100mL MB+) 100 ML 330 MG IV (09:52)
[2023-07-03] MEDS: Miconazole Nitrate 43 GM Bottle 1 APPLIC TOPICAL ×2 (09:54→21:16)
[2023-07-03] MEDS: Insulin Glargine-YFGN 100 UNIT/ML Pen 50 UNIT SC ×2 (09:54→21:17)
[2023-07-03] MEDS: Insulin Lispro 100 UNIT/ML INSULN.PEN 20 UNIT SC ×2 (11:52→16:59)
[2023-07-03 12:11] LABS: Bedside Glucose 231 mg/dL (74-106)
--- NOTE | 2023-07-03 13:22 | PN.HOSP_ITS ---
Reason for Visit Reason for Visit: Diagnoses Type 2 diabetes mellitus without complications (07/01/23) Acute kidney failure, unspecified (07/01/23) Nausea with vomiting, unspecified (07/01/23) Subjective Subjective Patient felt nauseous again and almost vomited with diet advanced, advised patient to adjust diet further, had slight amount of diarrhea but overall this is improved Objective Data Objective Data Vital Signs: Vital Signs Temp Pulse Resp BP Pulse Ox O2 Del Method 98.2 F 98 15 123/81 H 98 Room Air 07/03/23 09:00 07/03/23 09:00 07/03/23 09:00 07/03/23 09:00 07/03/23 09:00 07/03/23 10:00 Oxygen Delivery Method Room Air Weight: 157.5 kg Body Mass Index (BMI) 44.6 Intake & Output: Intake and Output for Last 24 Hours 07/02/23 07/02/23 07/03/23 00:59 23:59 23:59 Intake Total 1400 / 1400 Output Total Balance 1400 / 1400 Lab / Micro Data 07/03/23 04:15 07/03/23 04:15 Labs: Laboratory Results - last 24 hr 07/02/23 16:52: POC Glucose 351 H 07/02/23 21:14: POC Glucose 236 H 07/03/23 04:15: WBC 10.2, RBC 5.78, Hgb 15.0, Hct 45.3, MCV 78.4 L, MCH 26.0 L, MCHC 33.1, RDW Std Deviation 41.5, RDW Coeff of Dano 14.9 H, Plt Count 243, MPV 10.2, Immature Gran % (Auto) 1.100 H, Neut % (Auto) 64.8, Lymph % (Auto) 22.9, [place] % (Auto) 6.8, Eos % (Auto) 3.8, Baso % (Auto) 0.6, Absolute Neuts (auto) 6.6, Absolute Lymphs (auto) 2.34, Nucleated RBC % 0, Sodium 136, Potassium 3.6, Chloride 107, Carbon Dioxide 23.0, Anion Gap 6, BUN 18, Creatinine 0.83, Estim Creat Clear Calc 149.93, Est GFR (MDRD) Af Amer 139, Est GFR (MDRD) Non-Af 115, BUN/Creatinine Ratio 21.8 H, Glucose 270 H, Calcium 8.5 07/03/23 06:24: POC Glucose 265 H 07/03/23 11:50: POC Glucose 231 H Micro: Microbiology 07/02/23 08:30 Stool Enteric Bacteriology - Final Physical Exam Narrative General: Alert, oriented, no apparent distress HEENT: Atraumatic, normocephalic Eyes: Anicteric, normal conjunctiva, extraocular movements grossly intact Neck: Supple Respiratory: Clear to auscultation bilaterally, normal respiratory effort Cardiovascular: Slightly tachycardic, regular rhythm GI: Soft, nontender, nondistended Extremities: No edema Musculoskeletal: Moving all extremities Neuro: No overt focal neurological deficits Skin: No rashes appreciated Psych: Cooperative Assessment & Plan Assessment/Plan (1) Intractable nausea and vomiting: (2) Diabetes mellitus, type 2: (3) RADHA (acute kidney injury): PLAN: Plan #Intractable nausea/vomiting with diarrhea -No abdominal pain so did not scan abdomen however may have GI source given acute onset of diarrhea and vomiting so stool studies ordered -Continue IV fluids -Zofran with as needed Compazine for breakthrough -Clear liquid diet -Does have elevated white blood cell count however also has elevated hemoglobin, suspect CBC is somewhat reactive and hemoconcentrated as well, possibly has viral gastroenteritis but do not see any other signs or symptoms of infection requiring further scanning or empiric antibiotics at this time, will monitor with supportive care 07/02/2023: Still awaiting stool studies white count is climbing which could just be reactive given that he is feeling better and is afebrile -07/03: Stool studies negative, diarrhea improving, difficulty tolerating p.o. so will change to transitional diet. Query if patient has component of gastrop aresis especially with his uncontrolled diabetes, will check gastric emptying study. Once patient tolerating enough p.o. to maintain hydration will be able to discharge #RADHA and lactic acid elevation -Suspect secondary to dehydration -Continue IV fluid -Hold lisinopril 07/02/2023: Renal function is improving continue with IV fluids -07/03: Improved #Type II but diabetes mellitus with hyperglycemia -Glucose greater than 700 on presentation, given 10 of insulin and fluids in ED, will recheck -Continue 50 twice daily of Lantus, sliding scale with high correction factor -Not in DKA -Check A1c -Appear to be hyponatremic however corrected sodium is 137 07/02/2023: We will monitor and make adjustments as necessary -07/03: Resumed home Premeal as well, control improving #Morbid obesity -BMI 44.9 kg/m? -Complicates treatment, prognosis, outcomes -Recommend weight loss and lifestyle changes DVT: Heparin subq Time spent in the patient's overall evaluation,decision-making process, review of diagnostic data, adjustment of management, discussion with other providers, nursing nursing and ancillary staff involved in patient's care documentation, 36 minutes Charges/Coding Visit Charges Inpatient E&M: 34368 Subs Hosp L2
--- NOTE | 2023-07-03 13:51 | CHAPLAIN ---
Type of Pastoral Visit _x__ Initial Visit ___ Follow-up Visit ___ On-call Visit ___ General Patient Visit ___ Spiritual Assessment ___ Family Conference ___ Bereavement ___ Rapid Response ___ Code Blue ___ Other (describe below) Pastoral Care Referral From _x__ Patient ___ Family ___ Nurse ___ Physician ___ Information Systems Specialist ___ Car Seat Upholsterer ___ Other (describe below) Sacrament/Intervention _x__ Active listening ___ Anointing ___ Jewish ___ Bereavement ___ Communion ___ Sue exploration ___ ___ Life review _x__ Prayer ___ Reconciliation ___ Sacrament of Sick ___ Supportive presence ___ Wedding ___ Other (describe below) Pastoral Comments 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
[2023-07-03 15:00] VITALS: BP 130/84; PULSE 105; RESP 15; TEMP 36.8; O2SAT 95
--- NOTE | 2023-07-03 15:06 | CASEMGMT ---
RN?CM?PHOTOVOLTAIC FABRICATION TECHNICIAN?CM?to room to meet with patient for initial transition planning/care coordination?assessment.?RN?CM?introduced self and role at [facility].? Pt voices understanding and consents to?assessment?at this time.? Pt resting in bed in no distress at this time.? Pt is A/O at this time and answers all questions appropriately.?? Care providers, pharmacy, and demographics verified/updated at this time. PCP: Chavez Rendon Specialists: cupola mechanic Ronnie Pharmacy: [facility] Insurance: [employer] Prescription Benefit:?Yes Living Will/HPOA:?Pt does not currently have LW/HCPOA and would like to complete. Marcela LAKHANI, made aware. Pt made aware, if SW unable to meet w/him prior to discharge that AD can be completed as an OP. He voices understanding. LNOK: Mother, Riya. Father. Living Arrangements: Lives w/mother, grandmother, and uncle in mobile home w/7 steps to enter. Independent @ baseline w/ADL's and manages his own medications. Family gets groceries. Pt does his own laundry. Transportation:?Family DME: States has the following DME:? functioning glucometer and supplies. ?Pt states no need for further DME at this time.? HHC/SNF: Has been to a in [place] in the past and has had HHC in the past. He denies need for HHC and no needs identified. Pt wishes to return home and states has no concerns with going home at time of discharge.? CM?to follow for any further discharge planning/needs.? Pt voices no further concerns/needs at this time.? Advised pt to ask for?CM?if any further questions/concerns/needs arise.? Voices understanding. PLAN:??Home Kena BSN?RN?CM
[2023-07-03] MEDS: Ondansetron 4 MG/2 ML Vial IV (16:58)
[2023-07-03 17:13] LABS: Bedside Glucose 160 mg/dL (74-106)
[2023-07-03 21:00] VITALS: BP 126/81; PULSE 110; RESP 16; TEMP 36.8; O2SAT 94
[2023-07-03] MEDS: proCHLORPERazine 10 MG/2 ML Vial 5 MG IV (21:15)
[2023-07-03] MEDS: 0.9% Saline Lock 10 ML Syringe IV (21:25)
[2023-07-03 23:42] LABS: Bedside Glucose 190 mg/dL (74-106)
[2023-07-04 03:00] VITALS: BP 144/93; PULSE 104; RESP 20; TEMP 36.7; O2SAT 94
[2023-07-04 03:27] LABS: Absolute Lymphocyte Count 1.78 X10^3/uL (0.83-4.51); Absolute Neutrophil Count 6.7 X10^3/uL (2.0-7.7); Basophil# 0.04 X10^3/uL; Basophil% 0.4 % (0-1); Eosinophil# 0.39 X10^3/uL; Eosinophils% 4.1 % (0-5); Hematocrit 42.9 % (40-54); Lymphocyte # 1.78 X10^3/ul (0.83-4.51); Lymphocyte % 18.6 % (19-41); Mean Corp Hgb Conc 32.6 g/dL (32-36); Mean Corpuscular Hgb 25.2 pg (27.0-32.0); Mean Corpuscular Volume 77.3 fL (80-94); Mean Platelet Vol. 10.3 fl (6.2-12.0); Monocyte# 0.61 X10^3/uL; Monocyte% 6.4 % (0-10); NRBC Flagged by Analyzer 0 % (0-5); Neutrophil # 6.65 X10^3/uL (2.7-7.7); Neutrophil % 69.7 % (47-70); POSITIVE COUNT YES; RBC Distribution Width CV 14.8 % (11.6-14.6); RBC Distribution Width SD 40.7 fl (35.1-43.9); Red Blood Count 5.55 M/mm3 (4.6-6.2); White Blood Count 9.6 K/mm3 (4.4-11.0)
[2023-07-04 03:52] LABS: Anion Gap 6 (5-15); BUN 13 mg/dL (7-18); BUN/Creat Ratio 18.3 RATIO (10-20); Calcium,Total 8.6 mg/dL (8.5-10.1); Chloride 110 mmol/L (98-107); Creatinine, Serum 0.71 mg/dL (0.70-1.30); EST Glomerular Filtration Rate 137 mL/min (>60); Est Glom Filt Rate - Afr Amer 165 mL/min (>60); Estimated Creatinine Clearance 175.27 ml/min; Glucose 206 mg/dL (74-106); Potassium 3.3 mmol/L (3.5-5.1); Sodium Level 137 mmol/L (136-145)
[2023-07-04 04:07] LABS: Differential Indicated SCAN CRITERIA MET
[2023-07-04 05:17] LABS: Platelet Estimate SLT DEC (ADEQ)
[2023-07-04] MEDS: Heparin Injection (Vial) 5,000 UNIT/ML VIAL 5000 UNIT SC ×3 (06:01→21:07)
[2023-07-04 08:38] VITALS: BP 123/78; PULSE 93; RESP 15; TEMP 36.8; O2SAT 94
[2023-07-04] MEDS: 0.9% Saline Lock 10 ML Syringe IV ×2 (08:40→17:20)
[2023-07-04] MEDS: Pantoprazole Sodium 40 MG in 0.9% Normal Saline (100mL MB+) 100 ML 330 MG IV (08:40)
[2023-07-04] MEDS: Insulin Lispro 100 UNIT/ML INSULN.PEN SC ×2 (08:46→12:11)
[2023-07-04] MEDS: Miconazole Nitrate 43 GM Bottle 1 APPLIC TOPICAL ×2 (08:51→21:13)
[2023-07-04 09:05] LABS: Bedside Glucose 178 mg/dL (74-106)
[2023-07-04] MEDS: Ondansetron 4 MG/2 ML Vial IV (09:07)
[2023-07-04] MEDS: Insulin Glargine-YFGN 100 UNIT/ML Pen 50 UNIT SC ×2 (10:50→21:20)
[2023-07-04] MEDS: Potassium Chloride Oral Tablet 20 MEQ 40 MEQ PO (10:51)
--- NOTE | 2023-07-04 12:00 | NM_ITS ---
CLINICAL: 32-year-old male with history of intractable nausea and suspected clinical gastroparesis. SEMI-SOLID PHASE 99m Tc SULFUR COLLOID GASTRIC EMPTYING STUDY COMPARISON: None available FINDINGS: The patient was administered 1.2 mCi of 99m Tc sulfur colloid mixed with oatmeal and consumed per os. Image acquisitions in the anterior-posterior projections were obtained for 60 minutes. There is prompt visualization of the stomach. There is no gastroesophageal reflux identified. There is no appreciable emptying of the gastric contents with no calculation of the raw data or linear fit T 1/2. NM/Gastric Emptying Study IMPRESSION: 1. MARKEDLY ABNORMAL 99m Tc sulfur colloid semi-solid phase (oatmeal) gastric emptying imaging examination. A. There is severe delayed semi-solid phase gastric emptying compared to normal controls. (Alphonse et al, J Nucl Med Tech 38: 186, 2010). Electronically Signed: Nadir Arellano DO at 22:20 EST ,
[2023-07-04] MEDS: Insulin Lispro 100 UNIT/ML INSULN.PEN 20 UNIT SC (12:12)
[2023-07-04 12:34] LABS: Bedside Glucose 211 mg/dL (74-106)
[2023-07-04 14:30] VITALS: BP 117/69; PULSE 93; RESP 15; TEMP 36.6; O2SAT 95
[2023-07-04 17:05] LABS: Bedside Glucose 106 mg/dL (74-106)
--- NOTE | 2023-07-04 17:12 | PN.HOSP_ITS ---
Reason for Visit Reason for Visit: Diagnoses Type 2 diabetes mellitus without complications (07/01/23) Acute kidney failure, unspecified (07/01/23) Nausea with vomiting, unspecified (07/01/23) Subjective Subjective Patient feeling sick again this morning, went down for gastric emptying study and awaiting results, diarrhea has gotten better but still not tolerating p.o. consistently Objective Data Objective Data Vital Signs: Vital Signs Temp Pulse Resp BP Pulse Ox O2 Del Method 98.2 F 93 15 123/78 H 94 Room Air 07/04/23 08:38 07/04/23 08:38 07/04/23 08:38 07/04/23 08:38 07/04/23 08:38 07/04/23 08:38 Oxygen Delivery Method Room Air Weight: 157.5 kg Body Mass Index (BMI) 44.6 Intake & Output: Intake and Output for Last 24 Hours 07/02/23 07/03/23 07/04/23 23:59 23:59 23:59 Intake Total 2666.67 / 2666.67 110 / 110 Output Total 850 / 1050 200 / 200 Balance 1816.67 / 1616.67 -90 / -90 Lab / Micro Data 07/04/23 03:10 07/04/23 03:10 Labs: Laboratory Results - last 24 hr 07/03/23 16:54: POC Glucose 160 H 07/03/23 23:14: POC Glucose 190 H 07/04/23 03:10: WBC 9.6, RBC 5.55, Hgb 14.0, Hct 42.9, MCV 77.3 L, MCH 25.2 L, MCHC 32.6, RDW Std Deviation 40.7, RDW Coeff of Dano 14.8 H, Plt Count TNP, MPV 10.3, Immature Gran % (Auto) 0.800, Neut % (Auto) 69.7, Lymph % (Auto) 18.6 L, [place] % (Auto) 6.4, Eos % (Auto) 4.1, Baso % (Auto) 0.4, Absolute Neuts (auto) 6.7, Absolute Lymphs (auto) 1.78, Nucleated RBC % 0, Platelet Estimate SLT DEC, Sodium 137, Potassium 3.3 L, Chloride 110 H, Carbon Dioxide 21.0, Anion Gap 6, BUN 13, Creatinine 0.71, Estim Creat Clear Calc 175.27, Est GFR (MDRD) Af Amer 165, Est GFR (MDRD) Non-Af 137, BUN/Creatinine Ratio 18.3, Glucose 206 H, Calcium 8.6 07/04/23 08:36: POC Glucose 178 H 07/04/23 12:10: POC Glucose 211 H 07/04/23 16:48: POC Glucose 106 Micro: Microbiology 07/02/23 08:30 Stool Enteric Bacteriology - Final Physical Exam Narrative General: Alert, oriented, no apparent distress HEENT: Atraumatic, normocephalic Eyes: Anicteric, normal conjunctiva, extraocular movements grossly intact Neck: Supple Respiratory: Clear to auscultation bilaterally, normal respiratory effort Cardiovascular: Slightly tachycardic, regular rhythm GI: Soft, nondistended Extremities: No edema Musculoskeletal: Moving all extremities Neuro: No overt focal neurological deficits Skin: No rashes appreciated Psych: Cooperative Assessment & Plan Assessment/Plan (1) Intractable nausea and vomiting: (2) Diabetes mellitus, type 2: (3) RADHA (acute kidney injury): PLAN: Plan #Intractable nausea/vomiting with diarrhea -No abdominal pain so did not scan abdomen however may have GI source given acute onset of diarrhea and vomiting so stool studies ordered -Continue IV fluids -Zofran with as needed Compazine for breakthrough -Clear liquid diet -Does have elevated white blood cell count however also has elevated hemoglobin, suspect CBC is somewhat reactive and hemoconcentrated as well, possibly has viral gastroenteritis but do not see any other signs or symptoms of infection requiring further scanning or empiric antibiotics at this time, will monitor with supportive care 07/02/2023: Still awaiting stool studies white count is climbing which could just be reactive given that he is feeling better and is afebrile -07/03: Stool studies negative, diarrhea improving, difficulty tolerating p.o. so will change to transitional diet. Query if patient has component of gastroparesis especially with his uncontrolled diabetes, will check gastric emptying study. Once patient tolerating enough p.o. to maintain hydration will be able to discharge -07/04: Patient not tolerating diet even with de-escalation to transitional and small amounts, start empirically on Reglan while awaiting gastric emptying study results #RADHA and lactic acid elevation -Suspect secondary to dehydration -Continue IV fluid -Hold lisinopril 07/02/2023: Renal function is improving continue with IV fluids -07/03: Improved #Type II but diabetes mellitus with hyperglycemia -Glucose greater than 700 on presentation, given 10 of insulin and fluids in ED, will recheck -Continue 50 twice daily of Lantus, sliding scale with high correction factor -Not in DKA -Check A1c -Appear to be hyponatremic however corrected sodium is 137 07/02/2023: We will monitor and make adjustments as necessary -07/03: Resumed home Premeal as well, control improving -07/04: Given poor p.o. patient's glucose actually only 106 before dinner and his Premeal will be held #Morbid obesity -BMI 44.9 kg/m? -Complicates treatment, prognosis, outcomes -Recommend weight loss and lifestyle changes DVT: Heparin subq Time spent in the patient's overall evaluation,decision-making process, review of diagnostic data, adjustment of management, discussion with other providers, nursing nursing and ancillary staff involved in patient's care documentation, 36 minutes Charges/Coding Visit Charges Inpatient E&M: 73578 Subs Hosp L2
[2023-07-04] MEDS: Metoclopramide 10 MG/2 ML Vial 5 MG IV (17:20)
[2023-07-04 21:15] VITALS: BP 119/62; PULSE 99; RESP 16; TEMP 36.8; O2SAT 96
[2023-07-04 21:31] LABS: Bedside Glucose 144 mg/dL (74-106)
[2023-07-05] MEDS: Metoclopramide 10 MG/2 ML Vial 5 MG IV ×2 (00:01→05:23)
[2023-07-05] MEDS: 0.9% Saline Lock 10 ML Syringe IV ×3 (00:01→18:04)
[2023-07-05] MEDS: Heparin Injection (Vial) 5,000 UNIT/ML VIAL 5000 UNIT SC ×3 (05:23→20:37)
[2023-07-05 05:29] VITALS: BP 112/73; PULSE 74; RESP 15; TEMP 36.7; O2SAT 98
[2023-07-05 06:23] LABS: Absolute Lymphocyte Count 2.34 X10^3/uL (0.83-4.51); Absolute Neutrophil Count 5.4 X10^3/uL (2.0-7.7); Basophil# 0.05 X10^3/uL; Basophil% 0.6 % (0-1); Eosinophil# 0.48 X10^3/uL; Eosinophils% 5.3 % (0-5); Hematocrit 43.5 % (40-54); Hemoglobin 13.8 g/dL (13.0-16.5); Lymphocyte # 2.34 X10^3/ul (0.83-4.51); Lymphocyte % 25.9 % (19-41); Mean Corp Hgb Conc 31.7 g/dL (32-36); Mean Corpuscular Hgb 25.4 pg (27.0-32.0); Mean Corpuscular Volume 80.1 fL (80-94); Mean Platelet Vol. 10.3 fl (6.2-12.0); Monocyte# 0.65 X10^3/uL; Monocyte% 7.2 % (0-10); NRBC Flagged by Analyzer 0 % (0-5); Neutrophil # 5.43 X10^3/uL (2.7-7.7); Platelet Count 210 K/mm3 (150-450); RBC Distribution Width CV 14.7 % (11.6-14.6); RBC Distribution Width SD 42.2 fl (35.1-43.9); Red Blood Count 5.43 M/mm3 (4.6-6.2)
[2023-07-05 07:03] LABS: Anion Gap 2 (5-15); BUN 9 mg/dL (7-18); Calcium,Total 8.5 mg/dL (8.5-10.1); Chloride 110 mmol/L (98-107); Creatinine, Serum 0.64 mg/dL (0.70-1.30); EST Glomerular Filtration Rate 153 mL/min (>60); Est Glom Filt Rate - Afr Amer 186 mL/min (>60); Estimated Creatinine Clearance 194.44 ml/min; Glucose 105 mg/dL (74-106); Potassium 3.1 mmol/L (3.5-5.1); Sodium Level 138 mmol/L (136-145)
[2023-07-05] MEDS: Miconazole Nitrate 43 GM Bottle 1 APPLIC TOPICAL ×2 (08:12→20:36)
[2023-07-05] MEDS: Insulin Glargine-YFGN 100 UNIT/ML Pen 50 UNIT SC (08:12)
[2023-07-05] MEDS: Pantoprazole Sodium 40 MG in 0.9% Normal Saline (100mL MB+) 100 ML 330 MG IV (08:13)
[2023-07-05 08:14] VITALS: BP 119/78; PULSE 85; RESP 15; TEMP 36.6; O2SAT 97
[2023-07-05 08:42] LABS: Bedside Glucose 104 mg/dL (74-106)
[2023-07-05] MEDS: Potassium Chloride Oral Tablet 20 MEQ 40 MEQ PO (11:52)
[2023-07-05] MEDS: Metoclopramide 10 MG/2 ML Vial IV ×3 (11:53→23:14)
[2023-07-05 11:59] LABS: Bedside Glucose 119 mg/dL (74-106)
--- NOTE | 2023-07-05 12:04 | PN.HOSP_ITS ---
Reason for Visit Reason for Visit: Diagnoses Type 2 diabetes mellitus without complications (07/01/23) Acute kidney failure, unspecified (07/01/23) Nausea with vomiting, unspecified (07/01/23) Subjective Subjective Patient reporting having a lot of abdominal pain when he tried food earlier, discussed his diagnosis of gastroparesis and dietary modification recommendations Objective Data Objective Data Vital Signs: Vital Signs Temp Pulse Resp BP Pulse Ox O2 Del Method 98 F 85 15 119/78 97 Room Air 07/05/23 08:14 07/05/23 08:14 07/05/23 08:14 07/05/23 08:14 07/05/23 08:14 07/05/23 08:14 Oxygen Delivery Method Room Air Weight: 157.5 kg Body Mass Index (BMI) 44.6 Intake & Output: Intake and Output for Last 24 Hours 07/03/23 07/04/23 07/05/23 23:59 23:59 23:59 Intake Total 2666.67 / 2666.67 110 / 110 110 / 110 Output Total 850 / 1050 700 / 700 600 / 600 Balance 1816.67 / 1616.67 -590 / -590 -490 / -490 Lab / Micro Data 07/05/23 05:40 07/05/23 05:40 Labs: Laboratory Results - last 24 hr 07/04/23 12:10: POC Glucose 211 H 07/04/23 16:48: POC Glucose 106 07/04/23 21:06: POC Glucose 144 H 07/05/23 05:40: WBC 9.0, RBC 5.43, Hgb 13.8, Hct 43.5, MCV 80.1, MCH 25.4 L, MCHC 31.7 L, RDW Std Deviation 42.2, RDW Coeff of Dano 14.7 H, Plt Count 210, MPV 10.3, Immature Gran % (Auto) 1.000 H, Neut % (Auto) 60.0, Lymph % (Auto) 25.9, [place] % (Auto) 7.2, Eos % (Auto) 5.3 H, Baso % (Auto) 0.6, Absolute Neuts (auto) 5.4, Absolute Lymphs (auto) 2.34, Nucleated RBC % 0, Sodium 138, Potassium 3.1 L , Chloride 110 H, Carbon Dioxide 26.0, Anion Gap 2 L, BUN 9, Creatinine 0.64 L, Estim Creat Clear Calc 194.44, Est GFR (MDRD) Af Amer 186, Est GFR (MDRD) Non-Af 153, BUN/Creatinine Ratio 14.0, Glucose 105, Calcium 8.5 07/05/23 08:09: POC Glucose 104 07/05/23 11:29: POC Glucose 119 H Micro: Microbiology 07/02/23 08:30 Stool Enteric Bacteriology - Final Radiography Diagnostic Testing: Radiology Impression Gastric Emptying Nuclear Medicine 07/04/23 12:00 IMPRESSION: 1. MARKEDLY ABNORMAL 99m Tc sulfur colloid semi-solid phase (oatmeal) gastric emptying imaging examination. A. There is severe delayed semi-solid phase gastric emptying compared to normal controls. (Alphonse et al, J Nucl Med Tech 38: 186, 2010). Electronically Signed: Nadir Arellano DO at 22:20 EST , Physical Exam Narrative General: Alert, oriented, no apparent distress HEENT: Atraumatic, normocephalic Eyes: extraocular movements grossly intact Neck: Supple Respiratory: normal respiratory effort Cardiovascular: no edema appreciated GI: nondistended, nontender Extremities: Moving all extremities Neuro: No overt focal neurological deficits Psych: Cooperative Assessment & Plan Assessment/Plan (1) Intractable nausea and vomiting: (2) Diabetes mellitus, type 2: (3) RADHA (acute kidney injury): PLAN: Plan #Intractable nausea/vomiting with diarrhea-severe gastroparesis -No abdominal pain so did not scan abdomen however may have GI source given acute onset of diarrhea and vomiting so stool studies ordered -Continue IV fluids -Zofran with as needed Compazine for breakthrough -Clear liquid diet -Does have elevated white blood cell count however also has elevated hemoglobin, suspect CBC is somewhat reactive and hemoconcentrated as well, possibly has viral gastroenteritis but do not see any other signs or symptoms of infection requiring further scanning or empiric antibiotics at this time, will monitor with supportive care 07/02/2023: Still awaiting stool studies white count is climbing which could just be reactive given that he is feeling better and is afebrile -07/03: Stool studies negative, diarrhea improving, difficulty tolerating p.o. so will change to transitional diet. Query if patient has component of gastroparesis especially with his uncontrolled diabetes, will check gastric emptying study. Once patient tolerating enough p.o. to maintain hydration will be able to discharge -07/04: Patient not tolerating diet even with de-escalation to transitional and small amounts, start empirically on Reglan while awaiting gastric emptying study results -07/05: Gastric emptying study showed severe gastroparesis, diet adjustment, Reglan increased, dietitian consult. Patient has had a very variable insulin requirements given his inconsistent ability to eat, mildly diet adjusted will monitor glucose and make adjustments and verify patient able to take enough p.o. and Reglan for safe discharge and will plan to DC tomorrow if stable #RADHA and lactic acid elevation -Suspect secondary to dehydration -Continue IV fluid -Hold lisinopril 07/02/2023: Renal function is improving continue with IV fluids -07/03: Improved #Type II but diabetes mellitus with hyperglycemia -Glucose greater than 700 on presentation, given 10 of insulin and fluids in ED, will recheck -Continue 50 twice daily of Lantus, sliding scale with high correction factor -Not in DKA -Check A1c -Appear to be hyponatremic however corrected sodium is 137 07/02/2023: We will monitor and make adjustments as necessary -07/03: Resumed home Premeal as well, control improving -07/04: Given poor p.o. patient's glucose actually only 106 before dinner and his Premeal will be held -07/05: Long-acting decreased and Premeal had again for breakfast and lunch today #Morbid obesity -BMI 44.9 kg/m? -Complicates treatment, prognosis, outcomes -Recommend weight loss and lifestyle changes DVT: Heparin subq Time spent in the patient's overall evaluation,decision-making process, review of diagnostic data, adjustment of management, discussion with other providers, nursing nursing and ancillary staff involved in patient's care documentation, 36 minutes Charges/Coding Visit Charges Inpatient E&M: 19561 Subs Hosp L2
[2023-07-05 15:21] VITALS: BP 117/67; PULSE 92; RESP 15; TEMP 36.6; O2SAT 97
[2023-07-05 18:06] LABS: Bedside Glucose 117 mg/dL (74-106)
[2023-07-05 20:30] VITALS: BP 127/80; PULSE 89; RESP 14; TEMP 36.8; O2SAT 95
[2023-07-05] MEDS: Insulin Lispro 100 UNIT/ML INSULN.PEN SC (20:37)
[2023-07-05] MEDS: Insulin Glargine-YFGN 100 UNIT/ML Pen 45 UNIT SC (20:38)
[2023-07-05 21:37] LABS: Bedside Glucose 171 mg/dL (74-106)
[2023-07-06 02:30] VITALS: BP 113/68; PULSE 76; RESP 14; TEMP 36.7; O2SAT 94
[2023-07-06] MEDS: Metoclopramide 10 MG/2 ML Vial IV (05:09)
[2023-07-06] MEDS: Heparin Injection (Vial) 5,000 UNIT/ML VIAL 5000 UNIT SC (05:09)
[2023-07-06 06:54] LABS: Absolute Lymphocyte Count 2.22 X10^3/uL (0.83-4.51); Absolute Neutrophil Count 4.5 X10^3/uL (2.0-7.7); Basophil# 0.04 X10^3/uL; Basophil% 0.5 % (0-1); Eosinophil# 0.45 X10^3/uL; Eosinophils% 5.8 % (0-5); Hematocrit 41.7 % (40-54); Hemoglobin 13.5 g/dL (13.0-16.5); Lymphocyte # 2.22 X10^3/ul (0.83-4.51); Lymphocyte % 28.5 % (19-41); Mean Corp Hgb Conc 32.4 g/dL (32-36); Mean Corpuscular Hgb 25.8 pg (27.0-32.0); Mean Corpuscular Volume 79.7 fL (80-94); Mean Platelet Vol. 10.5 fl (6.2-12.0); Monocyte# 0.54 X10^3/uL; Monocyte% 6.9 % (0-10); NRBC Flagged by Analyzer 0 % (0-5); Neutrophil # 4.45 X10^3/uL (2.7-7.7); Neutrophil % 57.1 % (47-70); Platelet Count 188 K/mm3 (150-450); RBC Distribution Width CV 14.7 % (11.6-14.6); RBC Distribution Width SD 42.5 fl (35.1-43.9); Red Blood Count 5.23 M/mm3 (4.6-6.2); White Blood Count 7.8 K/mm3 (4.4-11.0)
[2023-07-06 07:20] LABS: Anion Gap 6 (5-15); BUN 10 mg/dL (7-18); BUN/Creat Ratio 16.5 RATIO (10-20); Calcium,Total 8.7 mg/dL (8.5-10.1); Chloride 111 mmol/L (98-107); EST Glomerular Filtration Rate 165 mL/min (>60); Est Glom Filt Rate - Afr Amer 199 mL/min (>60); Glucose 116 mg/dL (74-106); Potassium 3.3 mmol/L (3.5-5.1); Sodium Level 140 mmol/L (136-145)
[2023-07-06 08:08] VITALS: BP 116/72; PULSE 77; RESP 16; TEMP 36.1; O2SAT 96
[2023-07-06 10:33] LABS: Bedside Glucose 112 mg/dL (74-106)
[2023-07-06] MEDS: Potassium Chloride Oral Tablet 20 MEQ 60 MEQ PO (10:47)
[2023-07-06] MEDS: 0.9% Normal Saline (250mL Bag) 250 ML 15 ML IV (10:47)
[2023-07-06] MEDS: 0.9% Saline Lock 10 ML Syringe IV (10:48)
[2023-07-06] MEDS: Pantoprazole Sodium 40 MG in 0.9% Normal Saline (100mL MB+) 100 ML 330 MG IV (10:48)
[2023-07-06] MEDS: Insulin Glargine-YFGN 100 UNIT/ML Pen 45 UNIT SC (10:49)
[2023-07-06] MEDS: Miconazole Nitrate 43 GM Bottle 1 APPLIC TOPICAL (10:50)
--- NOTE | 2023-07-06 11:53 | PCM.DC.SUM ---
Providers Date of Admission: 07/01/23 Date of Discharge: 07/06/23 Primary Care Physician: ROZ SANDERS Reason For Visit: N/V, DEHYDRATION, RADHA, HYPERGLYCEMIA Diagnosis Discharge Diagnosis (1) Intractable nausea and vomiting: Status: Acute Code(s): R11.2 - Nausea with vomiting, unspecified (2) Diabetes mellitus, type 2: Status: Acute Code(s): E11.9 - Type 2 diabetes mellitus without complications (3) RADHA (acute kidney injury): Status: Acute Code(s): N17.9 - Acute kidney failure, unspecified (4) Diabetic gastroparesis: Status: Acute Code(s): E11.43 - Type 2 diabetes mellitus with diabetic autonomic (poly)neuropathy; K31.84 - Gastroparesis Plan #Intractable nausea/vomiting with diarrhea-severe gastroparesis #RADHA and lactic acid elevation- resolved #Type II but diabetes mellitus with hyperglycemia #Morbid obesity Medications at Discharge Home Medications lisinopril 2.5 mg tablet 10 mg PO DAILY 08/14/21 gabapentin 100 mg tablet 100 mg PO QHS PRN Feet pain 02/09/23 insulin glargine-yfgn 100 unit/mL (3 mL) subcutaneous pen 45 unit (0.45 mL) subcut BID #0 mL 07/06/23 metoclopramide HCl 10 mg tablet (Reglan) 10 mg PO Q6H nausea and vomiting 30 days #120 tabs 07/06/23 pantoprazole 40 mg tablet,delayed release (Protonix) 40 mg PO DAILY #30 tabs 07/06/23 Hospital Course Procedures - (Nuclear med gastric emptying study) Summary of Care Provided Minutes Spent on Discharge: 32 Hospital Course: BEKA AVILES, is a 32 M with a history of type 2 diabetes mellitus who presented to [facility] 07/01/2023 with intractable nausea and vomiting as well as diarrhea. He had an RADHA and glucose was 787 but he was not in DKA. He was given insulin and started on IV fluids and antinausea medication, illness was self-limited, GI panel is negative and patient symptoms improved, suspect viral gastroenteritis, did not require antibiotics and white count resolved. Glucose improved, patient actively having his diabetes medications adjusted as an outpatient, given this ongoing process and improvement of glucose will continue home regimen and have him follow closely with prescribing physician. Due to continued nausea and vomiting and inability to tolerate food patient had gastric emptying study which showed severe gastroparesis, started on Reglan and dietary modification. Additionally his insulin had to be down titrated to 45 units twice daily with no Premeal but he tolerated this well. Discharged in stable condition with discharge instructions as follows: DISCHARGE INSTRUCTIONS PLEASE READ *Please take this with you to your next doctors appointment* -You will be discharged on 45 units of long-acting insulin twice daily. You have not required your Premeal or sliding scale so would recommend holding that at this time. Will be important that you have follow-up with your physician to continue to adjust your insulin -You will be discharged on 10 mg of Reglan 4 times daily for your severe gastroparesis -You will also be discharged on daily Protonix -Please eat small meals throughout the day and preferably liquid foods or foods that are mashed or put through a crusher and blender operator. Additionally stay away from foods high in fats and fiber. -You will need to follow-up with GI upon discharge, contact information for local GI specialist Dr. Faith provided below, alternatively can be referred to a different GI specialist by your primary care physician -You would benefit from establishing care with an planning management it specialist, contact information for Dr. Zelaya's office below -USP use of Reglan (metoclopramide), though the side effect is rare, can be associated with the development of a medical condition called tardive dyskinesia. If you develop any stiff, jerking movements that you cannot control or uncontrollable, abnormal, and repetitive movements especially in your facial muscles please discontinue the medication immediately and contact your physician -Would recommend lab work (BMP) to check your potassium in 2 to 3 days through your primary care physician's office. Please call their office upon discharge to obtain order for lab work. -Please call your primary care provider's office upon discharge to schedule a hospital follow up within 1 week. -For any concerning signs or symptoms please call 911 or proceed to the nearest emergency department Physical Exam Narrative General: Alert, oriented, no apparent distress HEENT: Atraumatic, normocephalic Eyes: extraocular movements grossly intact Neck: Supple Respiratory: normal respiratory effort Cardiovascular: no edema appreciated GI: nondistended Extremities: Moving all extremities Neuro: No overt focal neurological deficits Psych: Cooperative Weight / BMI Weight Weight: 157.5 kg Body Mass Index (BMI) 44.6 ABG / Lab / Microbiology Data 07/06/23 05:50 07/06/23 05:50 Laboratory: Laboratory Results - last 24 hr 07/05/23 11:29: POC Glucose 119 H 07/05/23 17:35: POC Glucose 117 H 07/05/23 20:33: POC Glucose 171 H 07/06/23 05:50: WBC 7.8, RBC 5.23, Hgb 13.5, Hct 41.7, MCV 79.7 L, MCH 25.8 L, MCHC 32.4, RDW Std Deviation 42.5, RDW Coeff of Dano 14.7 H, Plt Count 188, MPV 10.5, Immature Gran % (Auto) 1.200 H, Neut % (Auto) 57.1, Lymph % (Auto) 28.5, [place] % (Auto) 6.9, Eos % (Auto) 5.8 H, Baso % (Auto) 0.5, Absolute Neuts (auto) 4.5, Absolute Lymphs (auto) 2.22, Nucleated RBC % 0, Sodium 140, Potassium 3.3 L, Chloride 111 H, Carbon Dioxide 23.0, Anion Gap 6, BUN 10, Creatinine 0.60 L, Estim Creat Clear Calc 207.40, Est GFR (MDRD) Af Amer 199, Est GFR (MDRD) Non-Af 165, BUN/Creatinine Ratio 16.5, Glucose 116 H, Calcium 8.7 07/06/23 08:14: POC Glucose 112 H Microbiology: Microbiology 07/02/23 08:30 Stool Enteric Bacteriology - Final D/C Instructions Discharge Diet: - (Low fiber, low-fat, pur?ed if possible and small meals) Meaningful Use Info Meaningful Use Diagnoses (Choose all that apply): None applicable Discharge Plan Admission Admit Date/Time: 07/01/23 15:01 Primary Reason for Your Visit: Nausea and vomiting Attending Provider: Joyce Irwin Primary Care Provider: ROZ SANDERS Consulting Providers: Joyce Irwin; Camilo Huertas Instructions Patient Instructions: Gastroparesis, ED Diet Vomiting Diarrhea Additional Instructions / Restrictions: DISCHARGE INSTRUCTIONS PLEASE READ *Please take this with you to your next doctors appointment* -You will be discharged on 45 units of long-acting insulin twice daily. You have not required your Premeal or sliding scale so would recommend holding that at this time. Will be important that you have follow-up with your physician to continue to adjust your insulin -You will be discharged on 10 mg of Reglan 4 times daily for your severe gastroparesis -You will also be discharged on daily Protonix -Please eat small meals throughout the day and preferably liquid foods or foods that are mashed or put through a crusher and blender operator. Additionally stay away from foods high in fats and fiber. -You will need to follow-up with GI upon discharge, contact information for local GI specialist Dr. Faith provided below, alternatively can be referred to a different GI specialist by your primary care physician -You would benefit from establishing care with an planning management it specialist, contact information for Dr. Zelaya's office below -USP use of Reglan (metoclopramide), though the side effect is rare, can be associated with the development of a medical condition called tardive dyskinesia. If you develop any stiff, jerking movements that you cannot control or uncontrollable, abnormal, and repetitive movements especially in your facial muscles please discontinue the medication immediately and contact your physician -Would recommend lab work (BMP) to check your potassium in 2 to 3 days through your primary care physician's office. Please call their office upon discharge to obtain order for lab work. -Please call your primary care provider's office upon discharge to schedule a hospital follow up within 1 week. -For any concerning signs or symptoms please call 911 or proceed to the nearest emergency department Discharge Orders/Prescriptions Prescriptions: New insulin glargine-yfgn 100 unit/mL (3 mL) Insulin Pen 45 unit subcut BID Qty: 0 0RF pantoprazole [Protonix] 40 mg tablet,delayed release (DR/EC) 40 mg PO DAILY Qty: 30 0RF metoclopramide HCl [Reglan] 10 mg tablet 10 mg PO Q6H 30 Days Qty: 120 0RF Continued lisinopril 2.5 mg tablet 10 mg PO DAILY gabapentin 100 mg Tablet 100 mg PO QHS PRN (Reason: Feet pain) Discontinued insulin lispro 100 unit/mL insulin pen 20 unit SUBCUT TIDCM insulin glargine [Lantus Solostar U-100 Insulin] 100 unit/mL (3 mL) insulin pen 50 unit SUBCUT BID Referrals / Follow Up: ROZ SANDERS [Other] - Within 1 Week ROZ SANDERS [Other] Friend,DO John [Med Staff - Active Staff] - Deonte Zelaya MD [Med Staff - Courtesy Staff] - Disposition Disposition (needs filled in before D/C Order can be placed): Home, Self Care Charges/Coding Visit Charges Inpatient E&M: 62828 Disch Hosp >30min
[2023-07-06] MEDS: Insulin Lispro 100 UNIT/ML INSULN.PEN SC (12:34)
[2023-07-06 12:56] LABS: Bedside Glucose 168 mg/dL (74-106)
[2023-07-06 12:56] LABS: Bedside Glucose 170 mg/dL (74-106)
[2023-07-06 14:22] VITALS: BP 132/89; PULSE 81; RESP 16; TEMP 36.4; O2SAT 97
== END 2023-07-06 15:04 | disposition home or self-care (01) | DRG 48 ==
LOC: ED 14:03 → PCU 15:08
PROVIDERS: Family Medicine; Nurse Practitioner; Admitting Provider Internal Medicine; Emergency Provider Emergency Medicine; Visit Provider Internal Medicine
DX: E11.43 Type 2 diabetes mellitus with diabetic autonomic (poly)neuropathy (principal); E87.1 Hypo-osmolality and hyponatremia; N17.9 Acute kidney failure, unspecified; E11.65 Type 2 diabetes mellitus with hyperglycemia; Z68.41 Body mass index [BMI] 40.0-44.9, adult; Z79.4 Long term (current) use of insulin; E66.01 Morbid (severe) obesity due to excess calories; I10 Essential (primary) hypertension; K31.84 Gastroparesis; Z79.2 Long term (current) use of antibiotics
CPT/HCPCS: 36415; 78264; 80048; 80053; 81001; 82009; 82803; 82947; 82962; 83036; 83605; 83690; 83735; 84443; 85025; 87506; 93005; 97802; 99285; A9541; J7030; J7050; A4216; J2405

== ENCOUNTER 2023-07-22 14:52 | Emergency (ER) | payer MEDICAID, SELFPAY ==
[2023-07-22 14:53] VITALS: BP 157/92; PULSE 82; RESP 18; TEMP 36.5; O2SAT 96
[2023-07-22 15:05] VITALS: BMI 49.5
--- NOTE | 2023-07-22 15:25 | EDS_ITS ---
HPI History of Present Illness Chief Complaint: Cellulitis Narrative Narrative: 32-year-old male with history of diabetes type 2 which is poorly controlled presenting with left lower extremity pain. He states he has a history of cellulitis on his left leg. He notes there is no redness but there is some swelling. He has pain with ambulation. No fevers or chills. Patient states he does not feel unwell. Patient states that he has history of cellulitis without any skin changes at all. He states there are some slight swelling over his left tibial area. Patient recently admitted to the hospital for RADHA dehydration and was in the hospital for several days. He is not very active at baseline. History of morbid obesity. Patient states that sugars are anywhere from 180-300 at home. Denies polyuria polydipsia. Denies any trauma. Patient has been taking his insulin as prescribed. 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, left, traumatic Asthma Diabetes Hypertension Home Medications lisinopril 2.5 mg tablet 10 mg PO DAILY blood pressure 08/14/21 [History Last Taken Unknown] gabapentin 100 mg tablet 100 mg PO QHS PRN Feet pain 02/09/23 [History Last Taken Unknown] insulin glargine-yfgn 100 unit/mL (3 mL) subcutaneous pen 45 unit (0.45 mL) subcut BID #0 mL 07/06/23 [Rx Last Taken Unknown] metoclopramide HCl 10 mg tablet (Reglan) 10 mg PO Q6H nausea and vomiting 30 days #120 tabs 07/06/23 [Rx Last Taken Unknown] pantoprazole 40 mg tablet,delayed release (Protonix) 40 mg PO DAILY #30 tabs 07/06/23 [Rx Last Taken Unknown] Allergy/AdvReac Type Severity Reaction Status Date / Time cinnamon Allergy Anaphylaxis Verified 07/22/23 14:53 Sulfa (Sulfonamide Allergy Rash Verified 07/22/23 14:53 Antibiotics) metformin AdvReac Vomiting Verified 07/22/23 14:53 Social History Smoking Status: Never smoker ROS ROS ED Constitutional Constitutional ED: Denies chills, fever(s) or sweats Eyes Eyes: Denies blurry vision or change in vision ENT ENT ED: Denies ear pain or sore throat Cardiovascular Cardiovascular: Denies chest pain, palpitations or racing heartbeat Respiratory/Chest Respiratory/Chest: Denies cough, dyspnea or sputum Gastrointestinal Gastrointestinal: Denies abdominal pain, constipation, diarrhea, nausea or vomiting Genitourinary Genitourinary ED: Denies dysuria, hematuria or urinary frequency Musculoskeletal Musculoskeletal: Denies arthralgias, myalgias or neck pain Integumentary Reports other Details: Left lower extremity swelling. ; Denies abscess, Abrasions or rash Neurologic Neurologic: Denies headache(s), paresthesias or weakness Psychiatric Psychiatric: Denies anxiety, depression, suicidal ideation or suicidal thoughts Endocrine Endocrinology: Denies polydipsia or polyuria EXAM Physical Exam Const Vital Signs: 07/22/23 14:53 Temperature 97.7 F L Temperature Source Temporal Pulse Rate 82 Respiratory Rate 18 Blood Pressure 157/92 H Blood Pressure Mean 113 Pulse Ox 96 Oxygen Delivery Method Room Air Positive well nourished and obese General Appearance ED: NAD; Negative for pallor Nutritional Appearance: obese HEENT Reports moist mucous membranes Eyes PERRL and EOMs intact bilaterally Neck no lymphadenopathy Resp normal respiratory effort Effort and Inspection: Negative for retractions Cardio regular rate and regular rhythm GI normal to inspection, nondistended, normoactive bowel sounds Neuro oriented x3 and CN's II-XII intact bilaterally Sensorium / Orientation: alert Motor Exam: strength 5/5 throughout Psych mental status grossly normal Skin no rashes or lesions noted and no wounds General Skin Exam: Negative for jaundice or pallor MDM MDM MDM Narrative Medical decision making narrative: 32-year-old male with left lower extremity pain. On examination his left lower extremity is slightly swollen more than the contralateral leg. It is mostly in the calf region in the tibial region. There is no erythema, warmth, induration. No cords are palpated. Compartments are soft. Differential includes DVT, cellulitis, edema. CBC will be obtained to assess white blood cell count, hemoglobin, platelets. BMP to assess renal function electrolytes. And CRP will be obtained. Left tib-fib x-ray will be obtained as well. He is outside the timeframe when I can order a duplex of the lower extremity on the left. He shows no leukocytosis and no left shift. CRP minimally elevated at 39.5, ESR 36. Renal function electrolytes within normal limits. Glucose elevated at 290 without anion gap. X-ray of the left tib-fib on my interpretation shows no acute fracture, subluxation or subcutaneous air. No evidence of cellulitis. Patient offered outpatient DVT study and he accepts. He does not want to be anticoagulated overnight. He will follow-up tomorrow to have the ultrasound study done. Return precautions discussed. Impression: 1. Unilateral lower extremity edema 2. History of cellulitis 3. Hyperglycemia Lab Data Labs: Laboratory Results - last 24 hr 07/22/23 07/22/23 13:45 15:16 WBC 6.8 RBC 4.86 Hgb 12.2 L Hct 39.2 L MCV 80.7 MCH 25.1 L MCHC 31.1 L RDW Std Deviation 41.9 RDW Coeff of Dano 14.5 Plt Count 230 MPV 10.2 Immature Gran % (Auto) 0.900 Neut % (Auto) 60.2 Lymph % (Auto) 25.4 [place] % (Auto) 5.9 Eos % (Auto) 7.0 H Baso % (Auto) 0.6 Absolute Neuts (auto) 4.1 Absolute Lymphs (auto) 1.72 Nucleated RBC % 0 ESR 36 H Sodium 137 Potassium 3.5 Chloride 106 Carbon Dioxide 29.0 Anion Gap 2 L BUN 6 L Creatinine 0.67 L Estim Creat Clear Calc 185.73 Est GFR (MDRD) Af Amer 176 Est GFR (MDRD) Non-Af 145 BUN/Creatinine Ratio 8.9 L Glucose 290 H Calcium 8.7 C-React Prot Ext Range 39.50 H POC Glucose 278 H Radiography Diagnostic Testing: Clinical Impression(s) from Imaging Studies Tibia/Fibula X-Ray 07/22/23 15:55 IMPRESSION: No acute bony injury. Electronically Signed: Natanael Yates DO at 16:50 EST Reading Location ID and State: [facility] / [place] Tel [phone], Service support , Discharge Plan Triage Chief Complaint: Cellulitis ED Provider: Maximiliano Chew Dx/Rx/DC Orders Instructions: ED Peripheral Edema, Unilateral Prescriptions: No Action lisinopril 2.5 mg tablet 10 mg PO DAILY gabapentin 100 mg Tablet 100 mg PO QHS PRN (Reason: Feet pain) insulin glargine-yfgn 100 unit/mL (3 mL) Insulin Pen 45 unit subcut BID Qty: 0 0RF pantoprazole [Protonix] 40 mg tablet,delayed release (DR/EC) 40 mg PO DAILY Qty: 30 0RF metoclopramide HCl [Reglan] 10 mg tablet 10 mg PO Q6H 30 Days Qty: 120 0RF Other Ambulatory Orders: Venous Duplex US, Unilateral (Stat) Facility: [facility] - Location: [facility] [place] Ordered By: Dr. Maximiliano Chew Primary Care Provider: Care Physician,No Primary Referrals: [facility] [Outside] - 3-5 Days Care Physician,No Primary [Primary Care Provider] - Disposition Disposition: Home, Self Care
[2023-07-22 15:35] LABS: Bedside Glucose 278 mg/dL (74-106)
--- NOTE | 2023-07-22 15:55 | RAD_ITS ---
INDICATION: pain EXAMINATION/TECHNIQUE: X-RAY - LEFT XR Tibia/Fibula 4 VIEWS COMPARISON: FINDINGS: SOFT TISSUES: No soft tissue swelling or gas. No radiopaque foreign body. BONES/JOINTS: No acute fracture or subluxation.. Normal alignment. Preservation of the joint space.. No sclerotic or destructive changes observed. RAD/Tibia & Fibula 2 Views IMPRESSION: No acute bony injury. Electronically Signed: Natanael Yates DO at 16:50 EST ,
[2023-07-22 15:57] LABS: Absolute Lymphocyte Count 1.72 X10^3/uL (0.83-4.51); Absolute Neutrophil Count 4.1 X10^3/uL (2.0-7.7); Basophil# 0.04 X10^3/uL; Basophil% 0.6 % (0-1); Eosinophil# 0.47 X10^3/uL; Hematocrit 39.2 % (40-54); Hemoglobin 12.2 g/dL (13.0-16.5); Lymphocyte # 1.72 X10^3/ul (0.83-4.51); Lymphocyte % 25.4 % (19-41); Mean Corp Hgb Conc 31.1 g/dL (32-36); Mean Corpuscular Hgb 25.1 pg (27.0-32.0); Mean Corpuscular Volume 80.7 fL (80-94); Mean Platelet Vol. 10.2 fl (6.2-12.0); Monocyte% 5.9 % (0-10); NRBC Flagged by Analyzer 0 % (0-5); Neutrophil # 4.07 X10^3/uL (2.7-7.7); Neutrophil % 60.2 % (47-70); Platelet Count 230 K/mm3 (150-450); RBC Distribution Width CV 14.5 % (11.6-14.6); RBC Distribution Width SD 41.9 fl (35.1-43.9); Red Blood Count 4.86 M/mm3 (4.6-6.2); White Blood Count 6.8 K/mm3 (4.4-11.0)
[2023-07-22 16:05] LABS: Erythrocyte Sedimentation Rate 36 mm/hr (0-20)
[2023-07-22 16:13] LABS: Anion Gap 2 (5-15); BUN 6 mg/dL (7-18); BUN/Creat Ratio 8.9 RATIO (10-20); Calcium,Total 8.7 mg/dL (8.5-10.1); Chloride 106 mmol/L (98-107); Creatinine, Serum 0.67 mg/dL (0.70-1.30); EST Glomerular Filtration Rate 145 mL/min (>60); Est Glom Filt Rate - Afr Amer 176 mL/min (>60); Estimated Creatinine Clearance 185.73 ml/min; Glucose 290 mg/dL (74-106); Potassium 3.5 mmol/L (3.5-5.1); Sodium Level 137 mmol/L (136-145)
== END 2023-07-22 17:22 | disposition home or self-care (01) ==
PROVIDERS: Emergency Provider Student in an Organized Health Care Education/Training Program; Visit Provider Student in an Organized Health Care Education/Training Program
DX: E11.65 Type 2 diabetes mellitus with hyperglycemia (principal); Z79.4 Long term (current) use of insulin; R60.0 Localized edema; I10 Essential (primary) hypertension; Z87.2 Personal history of diseases of the skin and subcutaneous tissue; Z79.899 Other long term (current) drug therapy
CPT/HCPCS: 73590; 80048; 82962; 85025; 85652; 86140; 99283; A4216

== ENCOUNTER 2023-07-23 20:40 | Emergency (ER) | payer MEDICAID, SELFPAY ==
[2023-07-23 20:42] VITALS: BP 156/87; PULSE 85; RESP 18; TEMP 36.8; O2SAT 92; BMI 50.4
--- NOTE | 2023-07-23 20:56 | EX.ED.DYSGE1 ---
HPI History of Present Illness Chief Complaint: Cellulitis Narrative Narrative: 32-year-old male past medical history of diabetes, obesity, has had left great toe amputation 2 years ago secondary to abscess presents with continued leg pain and reported swelling. He states that he had cellulitis in the past without any skin changes. Of note, he was seen in the emergency department yesterday where he had a work-up and x-ray performed of his left lower extremity regarding his pain. He does not wish to be anticoagulated at that time. He did not have an ultrasound performed today as reported because he states he could not get a ride. He called EMS because of continued left leg pain. He denies any shortness of breath or chest pain, no exacerbating or alleviating factors. 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, left, traumatic Anxiety Asthma Depression Diabetes Hypertension Osteoporosis Seizures Home Medications lisinopril 2.5 mg tablet 10 mg PO DAILY blood pressure 08/14/21 [History Last Taken Unknown] gabapentin 100 mg tablet 100 mg PO QHS PRN Feet pain 02/09/23 [History Last Taken Unknown] insulin glargine-yfgn 100 unit/mL (3 mL) subcutaneous pen 45 unit (0.45 mL) subcut BID #0 mL 07/06/23 [Rx Last Taken Unknown] metoclopramide HCl 10 mg tablet (Reglan) 10 mg PO Q6H nausea and vomiting 30 days #120 tabs 07/06/23 [Rx Last Taken Unknown] pantoprazole 40 mg tablet,delayed release (Protonix) 40 mg PO DAILY #30 tabs 07/06/23 [Rx Last Taken Unknown] Allergy/AdvReac Type Severity Reaction Status Date / Time cinnamon Allergy Anaphylaxis Verified 07/23/23 20:42 Sulfa (Sulfonamide Allergy Rash Verified 07/23/23 20:42 Antibiotics) metformin AdvReac Vomiting Verified 07/23/23 20:42 Social History Smoking Status: Never smoker ROS ROS ED ROS Narrative Constitutional: No fever, no chills. HEENT: No sore throat. No neck pain. No loss of vision. No rhinorrhea. Cardiovascular: No chest pain. No palpitations. No pedal edema. Respiratory: No cough, no shortness of breath. Abdominal: No abdominal pain. No nausea. No vomiting. Genitourinary: No dysuria. No hematuria. Musculoskeletal: Left lower extremity leg pain or swelling. Neurologic: No headaches. No dizziness. No lightheadedness. Skin: No rash. No change in color. Psychiatric: No depression. No anxiety. EXAM Physical Exam Narrative Exam Narrative: Afebrile. Vital signs noted. HEENT: Normocephalic. Atraumatic. PERRL, EOMI. Neck soft and supple. No point tenderness or step off. Cardiovascular: Regular rate and rhythm. No murmurs, rubs, or gallops appreciated. Respiratory: No tachypnea. Lungs clear to auscultation bilaterally. Gastrointestinal: Abdomen soft, nontender, with normoactive bowel sounds. No rebound or guarding. Neurological: Awake. Alert. Nonfocal, nonlateralizing. Skin: No rash. Normal color. No pallor. Musculoskeletal: Asymmetric swelling of left lower extremity but no pitting edema. Unsure of chronicity of reported swelling. No erythema. No palpable cord. Absent left great toe status post amputation. Palpable dorsalis pedis pulse. Full range of motion extremities. Const Vital Signs: 07/23/23 20:42 Temperature 98.3 F Temperature Source Temporal Pulse Rate 85 Respiratory Rate 18 Blood Pressure 156/87 H Blood Pressure Mean 110 Pulse Ox 92 Oxygen Delivery Method Room Air MDM MDM MDM Narrative Medical decision making narrative: I reviewed the patient's prior ED visit from yesterday. He had laboratory work and an x-ray. His work-up was negative. I am unsure as to why he did not have an ultrasound performed today, but he was reassured. I reviewed the patient's prior record and he did have an ultrasound written by Dr. Chew yesterday for today. I wrote him an order for an outpatient ultrasound to be performed tomorrow. He may have difficulty in obtaining this because he states he has no money and no ride. I stressed the importance of outpatient ultrasound regarding his asymmetric swelling and left lower extremity leg pain. I do not feel he requires emergent imaging or repeat laboratory work. He was given Tylenol orally for his left lower extremity discomfort. At this point in time, I feel he can be discharged to follow-up with his primary care provider and to have his outpatient ultrasound performed. Return instructions to the emergency department were reviewed. Disposition is discharged in stable condition. Discharge Plan Triage Chief Complaint: Cellulitis ED Provider: Hugo Garcia Dx/Rx/DC Orders Clinical Impression: Left leg pain, Encounter for medical screening examination Instructions: ED Pain, Acute, Uncertain Cause Prescriptions: No Action lisinopril 2.5 mg tablet 10 mg PO DAILY gabapentin 100 mg Tablet 100 mg PO QHS PRN (Reason: Feet pain) insulin glargine-yfgn 100 unit/mL (3 mL) Insulin Pen 45 unit subcut BID Qty: 0 0RF pantoprazole [Protonix] 40 mg tablet,delayed release (DR/EC) 40 mg PO DAILY Qty: 30 0RF metoclopramide HCl [Reglan] 10 mg tablet 10 mg PO Q6H 30 Days Qty: 120 0RF Other Ambulatory Orders: Venous Duplex US, Unilateral (Stat) Facility: [facility] - Location: [facility] Ordered By: Hugo Garcia Primary Care Provider: Care Physician,No Primary Referrals: Dinesh Marroquin MD [Med Staff - Active Staff] - As soon as possible Care Physician,No Primary [Primary Care Provider] - Disposition Disposition: Home, Self Care
[2023-07-23 21:02] VITALS: BP 158/79; PULSE 91; PULSE 93; RESP 16; O2SAT 91
[2023-07-23] MEDS: Acetaminophen 500 MG Tablet 1000 MG PO (21:08)
== END 2023-07-23 21:58 | disposition home or self-care (01) ==
LOC: ED 21:07
PROVIDERS: Emergency Provider Emergency Medicine; Visit Provider Emergency Medicine
DX: M79.605 Pain in left leg (principal); Z89.422 Acquired absence of other left toe(s); E11.9 Type 2 diabetes mellitus without complications; Z79.4 Long term (current) use of insulin; E66.9 Obesity, unspecified; I10 Essential (primary) hypertension; Z79.899 Other long term (current) drug therapy
CPT/HCPCS: 99283